=== PATIENT | male | born 1975 | race Caucasian/White ===

== ENCOUNTER 2021-07-21 08:48 | Outpatient (REF) | payer OTHER, SELFPAY ==
--- NOTE | ~2021-07-21 | XR_ITS ---
EXAMINATION: XR SINUSES CLINICAL INFORMATION: Chronic maxillary sinusitis. COMPARISON: None TECHNIQUE: 3 views of the sinuses were obtained. FINDINGS: There is a small polyp or retention cyst in the left maxillary sinus. Mild haziness seen in the right maxillary sinus. The rest the paranasal sinuses are clear. The mastoid sinuses are well aerated as well. No gross maxillofacial bony abnormality seen. XR/XR sinus min 3V IMPRESSION: Small polyp or retention cyst left maxillary sinus. Mild chronic inflammatory changes right maxillary sinus.
[2021-07-21 09:48] LABS: Estimated Average Glucose 103 mg/dL; Hemoglobin A1c % 5.2 %
[2021-07-21 10:09] LABS: Alanine Aminotransferase 84 U/L (0-40); Albumin Level 4.3 g/dL (3.5-5.0); Alkaline Phosphatase 60 U/L (39-117); Anion Gap 12 (12-20); Aspartate Amino Transferase 55 U/L (5-37); Bilirubin Total 0.6 mg/dL (0.0-1.0); Blood Urea Nitrogen 19 mg/dL (9-16); Calcium 9.7 mg/dL (8.4-10.2); Carbon Dioxide 28 mmol/L (22-29); Chloride 105 mmol/L (96-108); Cholesterol 153 mg/dL; Estimated Glomerular Filt Rate > 60; Glucose Fasting 84 mg/dL (60-99); HDL Cholesterol 54 mg/dL; LDL Cholesterol Calculated 86 mg/dl; Potassium 4.6 mmol/L (3.3-5.1); Sodium 140 mmol/L (135-145); Total Protein 7.8 g/dL (6.5-8.0); Triglycerides 68 mg/dL
[2021-07-21 10:19] LABS: TSH reflex Free T4 2.22 uIU/mL (0.32-4.0)
== END 2021-07-21 08:49 | disposition home or self-care (01) ==
LOC: HO.LAB 08:48
PROVIDERS: PCP Internal Medicine; Visit Provider Physician Assistant
DX: J32.0 Chronic maxillary sinusitis (principal); Z13.29 Encounter for screening for other suspected endocrine disorder; Z13.220 Encounter for screening for lipoid disorders; Z13.1 Encounter for screening for diabetes mellitus
CPT/HCPCS: 36415; 70220; 80053; 80061; 83036; 84443

== ENCOUNTER 2021-09-07 09:08 | Outpatient (REF) | payer OTHER, SELFPAY ==
--- NOTE | ~2021-09-07 | US_ITS ---
EXAMINATION: US COMPLETE ABDOMEN WITH LIVER ELASTOGRAPHY CLINICAL INFORMATION: Hepatic cirrhosis; hepatitis C; elevated liver function tests. COMPARISON: None. TECHNIQUE: Real-time imaging of the abdominal viscera. Noninvasive ultrasound liver fibrosis assessment is performed using Ben ElastPQ point quantification shear wave elastography (2D-SWE) with a C5-2 MHz transducer. Multiple elastography samples are obtained. FINDINGS: PANCREAS: Limited. The visualized pancreatic head and body are normal in appearance. The remainder of the pancreas is obscured from visualization by the overlying bowel gas. ABDOMINAL AORTA: The proximal, middle, and distal aortic segments are normal in caliber. INFERIOR VENA CAVA: Visualized portions are normal. LIVER: The liver demonstrates normal size, contour and generally increased echogenicity. No focal lesion or intrahepatic biliary duct dilatation. The right lobe measures 15.1 cm in length. The left lobe measures 8.7 cm in length. Portal flow is towards the liver (hepatopetal). The portal vein is prominent, a caliber of 1.3 cm. Shear wave liver elastography median stiffness is 2.02 m/s (reference: normal median stiffness is 1.3 m/s or less). IQR/median stiffness to assess sampling precision is 0.13 (reference: good quality data set is IQR/median stiffness of 0.15 or less). GALLBLADDER: Normal. The gallbladder is physiologically distended without evidence of stones, sludge, polyps, wall thickening or pericholecystic fluid. COMMON BILE DUCT: Normal in caliber measuring 0.3 cm in diameter. RIGHT KIDNEY: Normal. No hydronephrosis. No renal calculi or focal parenchymal lesions. The kidney measures 10.3 cm in maximum dimension. LEFT KIDNEY: Normal. No hydronephrosis. No renal calculi or focal parenchymal lesions. The kidney measures 9.4 cm in maximum dimension. SPLEEN: Normal. The spleen measures 12.6 cm in maximum dimension. FREE FLUID: None. US/US abdomen comp w elastography IMPRESSION: 1. There is generalized increase in hepatic echotexture, consistent with fatty infiltration or hepatocellular disease. Please correlate clinically. No focal hepatic mass or intrahepatic biliary dilatation is seen. 2. Liver elastography: Measurements are suggestive of compensated advanced chronic liver disease but need further test for confirmation. REFERENCE: Society of Radiologists in Ultrasound Liver Stiffness Thresholds (2020): LIVER STIFFNESS THRESHOLDS: *Liver Stiffness equal or less than 1.3 m/s: High probability of being normal. *Liver Stiffness less than 1.7 m/s: In the absence of other known clinical signs, rules out compensated advanced chronic liver disease. *Liver Stiffness 1.7-2.1 m/s: Suggestive of compensated advanced chronic liver disease but need further test for confirmation. *Liver Stiffness over 2.1 m/s: Rules in compensated advanced chronic liver disease. *Liver Stiffness over 2.4 m/s: Suggestive of clinically significant portal hypertension. QUALITY OF DATA SET: *IQR/Median value equal or less than 0.15 implies a quality data set. *IQR/Median value over 0.15 implies a poor quality data set. SIGNIFICANT CHANGE FROM PRIOR EXAM: Significant change if liver stiffness measurement is 10% or greater from prior exam. OTHER CONSIDERATIONS: The stage of liver fibrosis may be overestimated in the setting of acute hepatitis, liver inflammation, elevated liver function tests, hepatic vascular congestion, obstructive cholestasis, non-fasting state, and infiltrative diseases such as amyloidosis and lymphoma. In some patients with NAFLD, the liver stiffness thresholds for compensated advanced chronic liver disease may be lower. In causes other than viral hepatitis and NAFLD, liver stiffness thresholds are not well established.
== END 2021-09-07 09:09 | disposition home or self-care (01) ==
LOC: HO.US 09:08
PROVIDERS: Visit Provider Physician Assistant
DX: K74.69 Other cirrhosis of liver (principal)
CPT/HCPCS: 76705; 76981

== ENCOUNTER 2021-10-17 08:30 | Emergency (ER) | payer OTHER, SELFPAY ==
--- NOTE | ~2021-10-17 | CT_ITS ---
EXAMINATION: CT CHEST, ABDOMEN AND PELVIS WITHOUT CONTRAST CLINICAL INFORMATION: Fall on left side. Left rib and left upper quadrant pain. COMPARISON: Abdominal ultrasound dated 09/07/2021. TECHNIQUE: Contiguous axial thin section helical images of the chest, abdomen and pelvis were performed without IV contrast. The data set was reformatted in the coronal and sagittal planes and reviewed on an independent workstation. This CT examination was performed using dose optimization techniques as appropriate, variously including the following: *Automated exposure control *Adjustment of mA and/or kV according to patient size (this includes techniques or standardized protocols for targeted exams where dose is matched to indication/reason for exam; i.e. extremities or head) *Use of iterative reconstruction technique DLP: 994 mGy-cm FINDINGS: LUNGS: Right upper lobe 0.3 cm calcified granuloma (axial image [id number]). Anterior right middle lobe 0.2 cm subpleural calcified granuloma. No soft tissue pulmonary nodule. No mass or confluent airspace consolidation. The central airways are patent. PLEURA: No pleural effusion or pneumothorax. No pleural mass or thickening. MEDIASTINUM: No cardiomegaly. No significant pericardial effusion. No thoracic aortic dilatation. No significant mediastinal or hilar lymphadenopathy. CHEST WALL/AXILLA: No lymphadenopathy. THYROID: Unremarkable. LIVER, GALLBLADDER, AND BILIARY TREE: Normal size, shape, and attenuation. No focal hepatic lesion. No intra or extrahepatic biliary ductal dilatation. The gallbladder is unremarkable with no evidence of radiopaque gallstones, gallbladder wall thickening, or obvious pericholecystic inflammatory changes. PANCREAS: Partially fatty replaced. SPLEEN: Unremarkable. ADRENAL GLANDS: Unremarkable. KIDNEYS AND URETERS: Normal size, shape, and attenuation. No hydronephrosis, hydroureter, or calculi. No perinephric stranding. BLADDER: Unremarkable. GASTROINTESTINAL TRACT: No bowel wall thickening or inflammatory change. No small or large bowel obstruction. The appendix is unremarkable. PERITONEAL CAVITY: No intra-abdominal free air, free fluid, mass, or organized fluid collection. ABDOMINAL WALL: No significant abdominal wall hernia. LYMPH NODES: No significant lymphadenopathy. VASCULAR: No abdominal aortic dilatation. The IVC is unremarkable. PELVIC VISCERA: The prostate and seminal vesicles are unremarkable. OSSEOUS STRUCTURES: Nondisplaced lateral left 7th rib fracture. CT/CT abdomen pelvis wo con IMPRESSION: 1. Nondisplaced lateral left 7th rib fracture. 2. No pneumothorax or pleural effusion. No airspace consolidation. 3. No intra-abdominal mass, lymphadenopathy, ascites, or retroperitoneal hematoma. 4. No evidence of acute visceral injury.
--- NOTE | ~2021-10-17 | XR_ITS ---
EXAMINATION: XR RIBS, LEFT CLINICAL INFORMATION: Rib pain. Fall 1 week ago. COMPARISON: None TECHNIQUE: PA view of the chest and 3 views of the left ribs. FINDINGS: No airspace consolidation. No pleural effusion or pneumothorax. Unremarkable cardiomediastinal silhouette. Nondisplaced fracture through the posterolateral aspect of the left 7th rib adjacent to the overlying skin marker. No lytic or blastic osseous lesion. No abnormal soft tissue calcification. XR/XR ribs LT min 3V w CXR1V IMPRESSION: Nondisplaced left 7th rib fracture.
[2021-10-17 08:40] VITALS: BP 145/83; PULSE 70; RESP 18; TEMP 36.4; O2SAT 96; BMI 25.7
--- NOTE | 2021-10-17 09:43 | ED_ITS ---
HPI - General Adult General Chief complaint: General Medical Stated complaint: fall/rib pain/pain while breathing Time Seen by Provider: 10/17/21 09:09 Source: patient Mode of arrival: ambulatory History of Present Illness HPI narrative: 46-year-old male with a past medical history of GERD, headaches, chronic sinusitis, presenting to the ED complaining of left-sided rib pain since mechanical trip and fall last week. Reports tripped on 1 stair falling on left side, denies head trauma or LOC. Reports pain with palpation, movement and breathing. Denies nausea, vomiting, abdominal pain, fever Onset (ago): week(s) Related Data Home Medications Medication Instructions Recorded Confirmed glecaprevir 100 mg-pibrentasvir 40 3 tab PO DAILY 06/30/21 08/03/21 mg tablet (Mavyret) methadone 10 mg/mL intravenous 10 mg IM Q4H PRN 06/30/21 08/03/21 syringe Previous Rx's Medication Instructions Recorded fluticasone propionate 50 2 spray intranasal DAILY #16 grams 06/30/21 mcg/actuation nasal spray,suspension (Flonase Allergy Relief) cetirizine 10 mg tablet (Zyrtec) 10 mg PO DAILY PRN allergy 08/03/21 symptoms 90 days #90 tabs famotidine 20 mg tablet (Pepcid) 20 mg PO DAILY 90 days #90 tabs 08/03/21 ibuprofen 800 mg tablet 800 mg PO Q8H PRN pain 15 days #45 08/03/21 tabs nicotine (polacrilex) 2 mg gum 2 mg buccal Q2H 30 days #110 ea 08/03/21 hydrocodone 5 mg-acetaminophen 325 1 tab PO Q8H PRN pain, severe 3 10/17/21 mg tablet days #6 tabs lidocaine 5 % topical patch 1 patch topical DAILY PRN pain #30 10/17/21 (Lidoderm) ea naproxen 500 mg tablet 500 mg PO BID PRN pain 10 days #20 10/17/21 tabs Allergies Allergy/AdvReac Type Severity Reaction Status Date / Time No Known Drug Allergies Allergy Unknown Unknown Verified 08/03/21 10:01 Review of Systems Review of Systems: Constitutional: No Fever, No Chills ENT/Mouth: No Ear Pain, No Nasal Congestion, No sore throat, No Rhinorrhea, No Swallowing Difficulty Cardiovascular: + Chest Wall Pain, No SOB Respiratory: No Cough, No Sputum Gastrointestinal: No Nausea, No Vomiting, No Diarrhea, No Constipation, No Abdominal pain Genitourinary: No Dysuria, No Urinary Frequency, No Hematuria, No Flank Pain Musculoskeletal: No joint pain, No Myalgias, No Joint Swelling Skin: No Skin Lesions, No rash Neuro: No Weakness, No Numbness, No Paresthesias, no head trauma, no LOC Yes all other systems are reviewed and are negative [facility] Past Medical History Attestation statement: The following information was validated with the patient. Medical History Chronic infection of sinus GERD (gastroesophageal reflux disease) Headaches, cluster Family History Family History Father Kidney failure Prostate cancer Mother DMII (diabetes mellitus, type 2) FH: HTN (hypertension) Family history of pulmonary embolism Social History Social History Housing: House Alcohol intake: never Patient Tobacco Use Status: Current everyday Tobacco user Tobacco use type: Cigarette Cigarettes Per Day: 6 e-Cigarette/Vaping Use: Never Used Substance Use Type: Heroin Advance Directives: No Advance Directives Information Provided: No Current occupational status: employed Current occupation: [employer] Cognitive needs: No Hearing needs: No Vision needs: No Physical Exam ED Vital Signs: Vital Signs - 24 hr 10/17/21 08:40 Temperature 97.6 F Pulse Rate 70 Respiratory Rate 18 Blood Pressure 145/83 H Pulse Oximetry 96 Oxygen Delivery Method Nasal Cannula BMI result Body Mass Index 25.7 Const General: cooperative, healthy appearing and no acute distress Orientation/consciousness: patient oriented x3 Limitations: no limitations HENMT Head: Yes normal to inspection and Yes atraumatic Ears: hearing grossly normal bilaterally General nose exam: Normal external nose present Face and sinus: Yes normal facial exam Eyes General: appearance normal, both eyes and all related structures EOM: EOMs intact bilaterally Neck Neck: Yes normal visual inspection and Yes no meningeal signs Chest Other: + left-sided posterior lateral rib tenderness, reproducing subjective complaint, no erythema/ecchymosis or crepitus. Chest palpation & inspection: normal inspection of the chest and no crepitus Resp Effort & Inspection: normal respiratory effort and no respiratory distress Auscultation: clear to auscultation bilaterally, no crackles and no wheezes Cardio Rate: regular rate Heart sounds: S1 normal heart sound present and S2 normal heart sound present GI Inspection: Yes normal to inspection Palpation (GI): Soft to palpation, Tenderness to palpation present (GI) in the epigastrum and in the LUQ; with no rebound tenderness, no guarding and not rigid Back/Spine/Pelvis Other: No midline thoracic/lumbar spinous tenderness/step-off or deformity Skin Rashes: no rashes Wounds: no wounds Neuro General: patient oriented x3, tone normal and no meningeal signs Gait exam (Neuro): Normal gait present Extrem General: Yes normal to inspection Course Course Course Narrative: XR ribs LT min 3V w CXR1V IMPRESSION: Nondisplaced left 7th rib fracture. 1108--CT chest wo con/CT abdomen pelvis wo con IMPRESSION: 1. Nondisplaced lateral left 7th rib fracture. ? 2. No pneumothorax or pleural effusion. No airspace consolidation. ? 3. No intra-abdominal mass, lymphadenopathy, ascites, or retroperitoneal hematoma. ? 4. No evidence of acute visceral injury. > results discussed with patient including worrisome signs and symptoms and strict return precautions. Patient was supplied with incentive spirometer in the emergency department. Medical Decision Making MDM Narrative Medical decision making narrative: 46-year-old male with a past medical history of GERD, headaches, chronic sinusitis, presenting to the ED complaining of left-sided rib pain since mechanical trip and fall last week. On exam vital signs stable, NAD, nontoxic appearing, physical exam as above with noted left-sided rib tenderness in left upper quadrant tenderness. No crepitus or evidence of flail chest. Concern for rib fracture vs contusion vs intra-abdominal/splenic injury/hematoma Plan: X-ray ordered in triage, chest CT, CT abdomen/pelvis Lab Data Lab results reviewed: Yes I reviewed the patient's lab results. Discharge Plan Discharge Clinical Impression: Left rib fracture Patient Disposition: Home, Self-Care Instructions: Rib Fracture (ED) Additional Instructions: You have a fracture of your 7th rib which is nondisplaced. No other injuries noted. Naproxen as anti-inflammatory/pain medication, take with food. Arbyrd is opiate pain medication, take only when pain is severe for the next 3 days. Be aware Arbyrd has Tylenol mixed in, do not exceed 4 g of Tylenol in 1 day Use incentive spirometer at home. Please follow-up with her doctor Prescriptions: New hydrocodone-acetaminophen 5-325 mg tablet 1 tab PO Q8H PRN (Reason: pain, severe) 3 Days Qty: 6 0RF Rx Instructions: Partial Fill upon patient request. lidocaine [Lidoderm] 5 % adhesive patch,medicated 1 patch topical DAILY MDD remove after 12 hours PRN (Reason: pain) Qty: 30 0RF Rx Instructions: leave on most painful area for up to 12 hrs naproxen 500 mg tablet 500 mg PO BID PRN (Reason: pain) 10 Days Qty: 20 0RF No Action cetirizine [Zyrtec] 10 mg tablet 10 mg PO DAILY PRN (Reason: allergy symptoms) 90 Days Qty: 90 1RF nicotine (polacrilex) 2 mg gum 2 mg buccal Q2H 30 Days Qty: 110 1RF famotidine [Pepcid] 20 mg tablet 20 mg PO DAILY 90 Days Qty: 90 1RF ibuprofen 800 mg tablet 800 mg PO Q8H PRN (Reason: pain) 15 Days Qty: 45 0RF methadone 10 mg/mL syringe 10 mg IM Q4H PRN Rx Instructions: Pt takes 100 mg q in the morning Mavyret 100-40 mg tablet 3 tab PO DAILY fluticasone propionate [Flonase Allergy Relief] 50 mcg/actuation spray,suspension 2 spray intranasal DAILY Qty: 16 3RF Rx Instructions: administer into each nostril Referrals: Kd Arizmendi PA-C [Primary Care Provider] -
[2021-10-17] MEDS: oxyCODONE HCl Immed Release 5 MG TABLET PO (09:57)
[2021-10-17] MEDS: Ketorolac Tromethamine 30 MG/ML VIAL IM (09:58)
== END 2021-10-17 11:29 | disposition home or self-care (01) ==
PROVIDERS: Emergency Provider Emergency Medicine Emergency Medical Services; PCP Physician Assistant
DX: S22.32XA Fracture of one rib, left side, initial encounter for closed fracture (principal); R07.81 Pleurodynia; M54.6 Pain in thoracic spine; R10.2 Pelvic and perineal pain; R10.12 Left upper quadrant pain; F17.210 Nicotine dependence, cigarettes, uncomplicated; F11.90 Opioid use, unspecified, uncomplicated; W10.9XXA Fall (on) (from) unspecified stairs and steps, initial encounter; Y93.9 Activity, unspecified; Y92.9 Unspecified place or not applicable; Y99.9 Unspecified external cause status; Z71.6 Tobacco abuse counseling; Z79.899 Other long term (current) drug therapy
CPT/HCPCS: 71101; 71250; 74176; 94618; 96372; 99283; 99284; J1885

== ENCOUNTER 2023-07-17 13:09 | Outpatient (AMB) | payer OTHER, SELFPAY ==
[2023-07-17 13:20] VITALS: BP 120/68; PULSE 72; O2SAT 97; BMI 22.7
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
== END 2023-07-17 14:01 | disposition home or self-care (01) ==
PROVIDERS: PCP Physician Assistant; Visit Provider Physician Assistant
DX: K74.69 Other cirrhosis of liver (principal); F17.210 Nicotine dependence, cigarettes, uncomplicated; B18.2 Chronic viral hepatitis C; F11.20 Opioid dependence, uncomplicated; M54.16 Radiculopathy, lumbar region; J34.1 Cyst and mucocele of nose and nasal sinus; I10 Essential (primary) hypertension
CPT/HCPCS: 99214

== ENCOUNTER 2023-07-20 13:38 | Outpatient (AMB) | payer OTHER, SELFPAY ==
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
[2023-07-20 13:45] VITALS: BP 138/86; PULSE 71; O2SAT 98; BMI 22.6
== END 2023-07-20 14:15 | disposition home or self-care (01) ==
PROVIDERS: PCP Physician Assistant; Referring Provider Physician Assistant; Visit Provider Nurse Practitioner Family
DX: M54.16 Radiculopathy, lumbar region (principal); G89.4 Chronic pain syndrome; M53.3 Sacrococcygeal disorders, not elsewhere classified; Z79.891 Long term (current) use of opiate analgesic; M47.817 Spondylosis without myelopathy or radiculopathy, lumbosacral region
CPT/HCPCS: 99203

== ENCOUNTER 2023-07-20 13:38 | Outpatient (REF) | payer OTHER, SELFPAY ==
--- NOTE | ~2023-07-20 | XR_ITS ---
EXAMINATION: XR LUMBAR SPINE, SACROILIAC JOINT CLINICAL INFORMATION: Sacrococcygeal disorders not otherwise specified, radiculopathy lumbar region. TECHNIQUE: 7 views of the lumbar spine. 4 views of the bilateral sacroiliac joints. COMPARISON: None available. FINDINGS: Lumbar Spine: Dextroscoliosis of the lumbar spine. Facet arthritis in the lower lumbar spine. The bones are diffusely demineralized. Advanced multilevel degenerative changes in the lumbar spine with multilevel loss of disc space height at L2-S1 levels. Sacroiliac Joints: Bones are diffusely demineralized. Mild degenerative changes on limited views of the bilateral hips. Rounded calcification in the right hemipelvis is likely vascular. Mild degenerative changes in the bilateral sacroiliac joints. XR/XR sacroiliac joint min 3V IMPRESSION: 1. Advanced multilevel degenerative disc disease in the lumbar spine. 2. Mild degenerative changes in the bilateral sacroiliac joints. 3. The bones are diffusely demineralized. 4. CT scan recommended for additional evaluation if there is concern for fracture or other underlying pathology.
--- NOTE | ~2023-07-20 | XR_ITS ---
EXAMINATION: XR LUMBAR SPINE, SACROILIAC JOINT CLINICAL INFORMATION: Sacrococcygeal disorders not otherwise specified, radiculopathy lumbar region. TECHNIQUE: 7 views of the lumbar spine. 4 views of the bilateral sacroiliac joints. COMPARISON: None available. FINDINGS: Lumbar Spine: Dextroscoliosis of the lumbar spine. Facet arthritis in the lower lumbar spine. The bones are diffusely demineralized. Advanced multilevel degenerative changes in the lumbar spine with multilevel loss of disc space height at L2-S1 levels. Sacroiliac Joints: Bones are diffusely demineralized. Mild degenerative changes on limited views of the bilateral hips. Rounded calcification in the right hemipelvis is likely vascular. Mild degenerative changes in the bilateral sacroiliac joints. XR/XR lumbar spine 6V w bending IMPRESSION: 1. Advanced multilevel degenerative disc disease in the lumbar spine. 2. Mild degenerative changes in the bilateral sacroiliac joints. 3. The bones are diffusely demineralized. 4. CT scan recommended for additional evaluation if there is concern for fracture or other underlying pathology.
== END 2023-07-20 13:39 | disposition home or self-care (01) ==
LOC: HO.XRAY 13:38
PROVIDERS: PCP Physician Assistant; Referring Provider Physician Assistant; Visit Provider Nurse Practitioner Family
DX: M54.16 Radiculopathy, lumbar region (principal); M47.817 Spondylosis without myelopathy or radiculopathy, lumbosacral region; M53.3 Sacrococcygeal disorders, not elsewhere classified
CPT/HCPCS: 72114; 72202; 99202

== ENCOUNTER 2023-08-09 07:05 | Outpatient (REF) | payer OTHER, SELFPAY ==
[2023-08-09 07:56] LABS: Hematocrit 39.7 % (42.0-52.0); Hemoglobin 13.4 g/dl (14.0-18.0); Mean Corpuscular HGB Conc 33.8 g/dl (31.0-36.0); Mean Corpuscular Hemoglobin 30.2 pg (27.0-33.0); Mean Corpuscular Volume 89.4 fL (80.0-98.0); Mean Platelet Volume 9.9 fL (9.4-12.4); Platelet Count 155 X10*3/uL (160-400); Red Blood Count 4.44 X10*6/uL (4.60-5.80); Red Cell Distribution Width 12.7 % (11.0-16.0); White Blood Count 4.2 X10*3/uL (4.8-10.8)
[2023-08-09 08:16] LABS: Alanine Aminotransferase 27 U/L (0-40); Alkaline Phosphatase 62 U/L (39-117); Anion Gap 11 (12-20); Aspartate Amino Transferase 27 U/L (5-37); Bilirubin Total 0.2 mg/dL (0.0-1.0); Blood Urea Nitrogen 21 mg/dL (9-16); Calcium 9.3 mg/dL (8.4-10.2); Carbon Dioxide 27 mmol/L (22-29); Chloride 106 mmol/L (96-108); Estimated Glomerular Filt Rate > 60; Glucose Fasting 82 mg/dL (60-99); Potassium 4.3 mmol/L (3.3-5.1); Sodium 140 mmol/L (135-145)
== END 2023-08-09 07:06 | disposition home or self-care (01) ==
LOC: HO.LAB 07:05
PROVIDERS: PCP Physician Assistant; Visit Provider Physician Assistant
DX: Z13.1 Encounter for screening for diabetes mellitus (principal); K21.9 Gastro-esophageal reflux disease without esophagitis
CPT/HCPCS: 36415; 80053; 85027

== ENCOUNTER 2023-08-23 15:05 | Outpatient (AMB) | payer OTHER, SELFPAY ==
[2023-08-23 15:15] VITALS: BP 126/74; PULSE 94; O2SAT 96; BMI 24.7
--- NOTE | 2023-08-23 15:15 | A.OFFPC_ITS ---
Vital Signs 08/23/23 15:15 Height 6 ft Weight 182 lb 4 oz BMI 24.7 BP 126/74 Blood Pressure Location Lt brachial Position Sitting Pulse 94 Pulse Source Pulse Oximeter Pulse Oximetry (%) 96 Oxygen Delivery Method Room Air Intake Visit Reasons: Gastro Referral Discuss Intake Note: Pt is here for new G.I referral. Window Draper Required: No Accompanied by: Self / Same As Patient Allergies No Known Drug Allergies Allergy (Unknown, Verified 08/23/23 15:24) Unknown Medication List - Last Reconciled 08/23/23 by Kd Arizmendi PA-C amlodipine 5 mg PO DAILY baclofen 20 mg PO BID 15 days cetirizine (Zyrtec) 10 mg PO DAILY PRN 90 days famotidine (Pepcid) 20 mg PO DAILY 90 days gabapentin 400 mg PO TID 90 days ibuprofen 600 mg PO BID PRN lidocaine 5% (Lidoderm) 1 patch topical DAILY PRN MDD remove after 12 hours methadone 10 mg IM Q4H PRN naloxone 4 mg/actuation 1 spray intranasal DAILY naproxen 500 mg PO BID 30 days nicotine 1 patch topical DAILY nicotine (polacrilex) 2 mg buccal Q2H 30 days nicotine (polacrilex) mg PO sertraline 50 mg PO DAILY Tobacco use date assessed: 07/17/23 Dental Screening Dental Screen Date: 07/17/23 HPI Gastro Referral Discuss HPI Details Patient is a 48-year-old male here today for a follow-up visit. Patient has a past medical history significant for hypertension, opiate use disorder, generalized anxiety disorder , chronic lumbosacral pain, history of hepatitis C ? Liver cirrhosis CHRONIC MEDICAL CONDITIONS--> Opiate depedence: goes? to a methadone clinic in [place] , ([facility]) .. Lumbar spine pain: Now followed by pain management and is considering a pain reduction modality. Continues with gabapentin and baclofen with decent relief. Also going to a methadone clinic which offer him some pain relief. .. Liver cirrhosis: Had hep C was treated by a integrated circuits inspector and cleared virus. Most recent liver enzymes much improved. He did have an ultrasound of his liver in 2021 that did show hepatocellular disease. He is still interested in seeing a integrated circuits inspector.. Tobacco use disorder:? He does understand he needs to quit and will be working on that soon.? He does report having nicotine gum at home. Laboratory Tests 07/21/21 08/09/23 09:00 07:38 AST 55 H 27 ALT 84 H 27 PFSH Medical History Methadone use Maxillary fracture Chronic infection of sinus Headaches, cluster GERD (gastroesophageal reflux disease) Family History Father Kidney failure Prostate cancer Mother DMII (diabetes mellitus, type 2) FH: HTN (hypertension) Family history of pulmonary embolism Social History Housing: House Alcohol intake: never Patient Tobacco Use Status: Current everyday Tobacco user Tobacco use type: Cigarette Cigarettes Per Day: 6 e-Cigarette/Vaping Use: Never Used Substance Use Type: Heroin and Opiates Current occupational status: disabled Cognitive needs: No Hearing needs: No Vision needs: No Questionnaire Thrive Questionnaire Date Thrive assessed: 07/17/23 LENORE-7 AMB Questionnaire LENORE-7 Date LENORE - 7 assessed: 07/17/23 Source: Developed by Drs. Braulio Cooper, Linda Canas, Niko Mina and colleagues, with an educational prashant from [employer]. Review of Systems Const Denies headache(s) Eyes Denies loss of vision ENT Denies vertigo, Denies dizziness, Denies headache(s) and Denies sore throat Card Denies chest pain, Denies leg edema and Denies lightheadedness Resp Denies cough, Denies hemoptysis and Denies wheezing GI Denies abdominal pain, Denies melena, Denies constipation, Denies diarrhea and Denies vomiting Denies dysuria, Denies urinary frequency and Denies urinary urgency Musc Denies arthralgias, Denies joint swelling, Denies numbness and Denies tingling Neuro Denies Abnormal speech present, Denies behavioral changes, Denies vertigo, Denies dizziness, Denies headache(s), Denies loss of vision, Denies memory loss, Denies numbness and Denies tingling Psych Denies anxiety, Denies behavioral changes, Denies depression, Denies memory loss and Denies panic attacks J Luis/Lymph Denies easy bleeding and Denies easy bruising Aller/Immun Denies wheezing Physical exam (Primary Care) Vital Signs: Last Vital Signs Pulse 94 08/23/23 15:15 BP 126/74 08/23/23 15:15 Pulse Ox 96 08/23/23 15:15 Oxygen Delivery Method Room Air 08/23/23 15:15 BMI result Body Mass Index 24.7 Tobacco/Smoking Status: Tobacco use Status Tobacco use date assessed 07/17/23 08/23/23 15:16 Patient Tobacco Use Status Current everyday Tobacco 08/23/23 15:16 Tobacco use type Cigarette 08/23/23 15:16 e-Cigarette/Vaping Use Never Used 08/23/23 15:16 Are you ready to quit: Yes Tobacco cessation counseling provided: Yes Items discussed: Nicotine replacement Relapse Prevention: discussed the importance of a supportive environment, discussed negative mood or depression after quitting, weight gain after smoking is common and discussed dietary, exercise and/or lifestyle changes Number of minutes spent counselin CPT code: 25966 - 4-10 Minutes Thrive Assessment: Date of Thrive Assessment Date Thrive assessed 07/17/23 08/23/23 15:16 Const General: healthy appearing, no acute distress, alert and awake Nutritional Appearance: well nourished Orientation/consciousness: oriented to person, oriented to place and oriented to time HENMT Ears: TM's normal bilaterally General nose exam: Normal nasal mucous membranes and turbinates present Eyes Conjunctivae: conjunctivae normal Sclerae: sclerae normal Pupils: Equal, round and reactive pupils present Neck Neck: Yes no lymphadenopathy and Yes no JVD Thyroid: Thyroid normal Carotids: no bruits Resp Effort & Inspection: normal respiratory effort and not tachypneic Auscultation: no crackles, no rales, no rhonchi and no wheezes Cardio Rate: regular rate Rhythm: regular rhythm Heart sounds: no murmurs and normal S1 and S2 GI Palpation (GI): Soft to palpation, nontender, no hepatomegaly and no splenomegaly Auscultation: normal bowel sounds Skin General skin exam: no rashes or lesions noted and dry skin Neuro General: oriented to person, oriented to place and oriented to time Cranial nerves: Yes Equal, round and reactive pupils present Speech: No Abnormal speech present Gait exam (Neuro): Normal gait present Motor exam (neuro): no tremor noted Extrem Right upper extremity: full ROM Left upper extremity: full ROM Right lower extremity: full ROM; no edema Left lower extremity: full ROM; no edema Psych Mental Status: mental status grossly normal Speech and movement: Normal speech and movement present Affect: normal affect Attitude: cooperative Thought process: Normal thought process present Assessment and Plan Assessment & Plan (1) Liver cirrhosis: Code(s): K74.60 - Unspecified cirrhosis of liver Qualifiers: Hepatic cirrhosis type: other cirrhosis Qualified Code(s): K74.69 - Other cirrhosis of liver Plan: Patient with chronic hepatitis C. Has been treated for hepatitis-C and per patient he has cleared virus. Most recent labs continue to show improved liver enzymes. He still does some mild right upper abdominal quadrant pain to palpation. Did get an ultrasound liver in 2021 that showed some hepatocellular disease. Will repeat liver ultrasound and refer to GI (2) Smoker: Code(s): F17.200 - Nicotine dependence, unspecified, uncomplicated Plan: Unfortunately continues to smoke any does understand he needs to quit. He does have nicotine gum and patches available to him. He has found it difficult to quit smoking. (3) Lumbar radiculopathy: Code(s): M54.16 - Radiculopathy, lumbar region Plan: He does report having a long history of lumbar spine pain that has radicular symptoms down right lower extremity. He does report a back injury several years ago requiring ER evaluation. He is now seeing [facility] pain management and is considering a pain reduction modality (4) Opiate dependence: Code(s): F11.20 - Opioid dependence, uncomplicated Qualifiers: Substance use status: uncomplicated Qualified Code(s): F11.20 - Opioid dependence, uncomplicated Plan: Patient followed by a methadone clinic in [place] through [facility]. (5) HTN (hypertension): Code(s): I10 - Essential (primary) hypertension Qualifiers: Hypertension type: primary hypertension Qualified Code(s): I10 - Essential (primary) hypertension Plan: Patient's blood pressure acceptable today in office. Will continue his current dose of amlodipine Goal blood pressures to remain below 140/90 Orders: Orders US abdomen lehman w elastography 08/23/23 K74.69 - Other cirrhosis of liver Referrals Gastroenterology Referral K74.69 - Other cirrhosis of liver Medications: New ipratropium bromide administer into each nostril 2 sprays intranasal BID 30 mL 1RF 30 days J32.0 - Chronic maxillary sinusitis Refilled baclofen 20 mg PO BID 30 tabs 1RF 15 days M54.16 - Radiculopathy, lumbar region Patient Instructions: Goal: Remain blood pressure below 140/90 Barriers: Adherence to healthy eating habits and blood pressure monitoring Coding Level of Care Code Est Pt Level 4 (78028) Diagnoses Other cirrhosis of liver K74.69 Hepatic cirrhosis type: other cirrhosis Smoker F17.200 Lumbar radiculopathy M54.16 Uncomplicated opioid dependence F11.20 Substance use status: uncomplicated Primary hypertension I10 Hypertension type: primary hypertension Additional Codes Vital Signs *Quality* - CPT code: 42447 - 4-10 Minutes ([id number])
== END 2023-08-23 15:37 | disposition home or self-care (01) ==
PROVIDERS: PCP Physician Assistant; Visit Provider Physician Assistant
DX: K74.69 Other cirrhosis of liver (principal); F11.20 Opioid dependence, uncomplicated; F17.210 Nicotine dependence, cigarettes, uncomplicated; M54.16 Radiculopathy, lumbar region; I10 Essential (primary) hypertension; K21.9 Gastro-esophageal reflux disease without esophagitis
CPT/HCPCS: 99214; 99406

== ENCOUNTER 2023-08-25 13:55 | Outpatient (AMB) | payer OTHER, SELFPAY ==
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
[2023-08-25 14:02] VITALS: BP 124/69; PULSE 81; O2SAT 100; BMI 21.9
== END 2023-08-25 14:43 | disposition home or self-care (01) ==
PROVIDERS: PCP Physician Assistant; Visit Provider Nurse Practitioner Family
DX: M54.16 Radiculopathy, lumbar region (principal); M47.817 Spondylosis without myelopathy or radiculopathy, lumbosacral region; M53.3 Sacrococcygeal disorders, not elsewhere classified; M85.80 Other specified disorders of bone density and structure, unspecified site; M51.36 Other intervertebral disc degeneration, lumbar region
CPT/HCPCS: 99214

== ENCOUNTER → 2023-08-25 13:55 | Outpatient (BNVA) | payer OTHER, SELFPAY | PROVIDERS: PCP Physician Assistant; Visit Provider Nurse Practitioner Family | DX: M47.27 Other spondylosis with radiculopathy, lumbosacral region (principal); M53.3 Sacrococcygeal disorders, not elsewhere classified; M85.80 Other specified disorders of bone density and structure, unspecified site; M51.36 Other intervertebral disc degeneration, lumbar region; Z79.899 Other long term (current) drug therapy | CPT/HCPCS: 99212 ==

== ENCOUNTER 2023-09-07 08:45 | Outpatient (REF) | payer OTHER, SELFPAY ==
--- NOTE | ~2023-09-07 | US_ITS ---
EXAMINATION: US ABDOMEN LIMITED WITH LIVER ELASTOGRAPHY CLINICAL INFORMATION: Hepatic cirrhosis. COMPARISON: None available. TECHNIQUE: Real-time imaging of the abdominal viscera. Noninvasive ultrasound liver fibrosis assessment is performed using Ben ElastPQ point quantification shear wave elastography (2D-SWE) with a C5-2 MHz transducer. Multiple elastography samples are obtained. FINDINGS: PANCREAS: Largely obscured by overlapping bowel gas. LIVER: Normal. The liver demonstrates normal size, contour and echogenicity. No focal lesion or intrahepatic biliary duct dilatation. The right lobe measures 15.0 cm in length. The left lobe measures 10.7 cm in length. Portal flow is towards the liver (hepatopetal). Shear wave liver elastography median stiffness is 1.61 m/s (reference: normal median stiffness is 1.3 m/s or less). IQR/median stiffness to assess sampling precision is 0.07 (reference: good quality data set is IQR/median stiffness of 0.15 or less). GALLBLADDER: Normal. The gallbladder is physiologically distended without evidence of stones, sludge, polyps, wall thickening or pericholecystic fluid. COMMON BILE DUCT: Normal in caliber measuring 0.6 cm in diameter. RIGHT KIDNEY: Normal. No hydronephrosis. No renal calculi or focal parenchymal lesions. The kidney measures 10.9 cm in maximum dimension. FREE FLUID: None. US/US abdomen lehman w elastography IMPRESSION: 1. Liver elastography: In the absence of other known clinical signs, measurements rule out compensated advanced chronic liver disease. If there are known clinical signs, further testing may be needed for confirmation. 2. Technically limited ultrasound examination of the pancreas. REFERENCE: Society of Radiologists in Ultrasound Liver Stiffness Thresholds (2020): LIVER STIFFNESS THRESHOLDS: *Liver Stiffness equal or less than 1.3 m/s: High probability of being normal. *Liver Stiffness less than 1.7 m/s: In the absence of other known clinical signs, rules out compensated advanced chronic liver disease. *Liver Stiffness 1.7-2.1 m/s: Suggestive of compensated advanced chronic liver disease but need further test for confirmation. *Liver Stiffness over 2.1 m/s: Rules in compensated advanced chronic liver disease. *Liver Stiffness over 2.4 m/s: Suggestive of clinically significant portal hypertension. QUALITY OF DATA SET: *IQR/Median value equal or less than 0.15 implies a quality data set. *IQR/Median value over 0.15 implies a poor quality data set. SIGNIFICANT CHANGE FROM PRIOR EXAM: Significant change if liver stiffness measurement is 10% or greater from prior exam. OTHER CONSIDERATIONS: The stage of liver fibrosis may be overestimated in the setting of acute hepatitis, liver inflammation, elevated liver function tests, hepatic vascular congestion, obstructive cholestasis, non-fasting state, and infiltrative diseases such as amyloidosis and lymphoma. In some patients with NAFLD, the liver stiffness thresholds for compensated advanced chronic liver disease may be lower. In causes other than viral hepatitis and NAFLD, liver stiffness thresholds are not well established.
== END 2023-09-07 08:46 | disposition home or self-care (01) ==
LOC: HO.US 08:45
PROVIDERS: PCP Physician Assistant; Visit Provider Physician Assistant
DX: K74.69 Other cirrhosis of liver (principal)
CPT/HCPCS: 76705; 76981

== ENCOUNTER 2023-09-13 09:16 | Outpatient (REF) | payer OTHER, SELFPAY ==
--- NOTE | ~2023-09-13 | MM_ITS ---
EXAMINATION: BONE DENSITOMETRY CLINICAL INDICATION: Spondylosis without myelopathy or radiculopathy, lumbosacral region. COMPARISON: This is the patient's baseline examination. TECHNIQUE: Using a [employer] DXA System (software version: 13.1) manufactured by [employer] dual-energy x-ray absorptiometry was performed of the lumbar spine and left hip. The images are of good technical quality. Based on ISCD (International Society for Clinical Densitometry) standards of reporting, Z-scores instead of T-scores are reported in this male patient younger than age 50. Summary results are attached. FINDINGS: AP SPINE L1-L2 (excluding L3 and L4): The data of L1-L4 has been changed to exclude the L3 and L4 vertebral bodies, because degenerative sclerosis at this level may falsely elevate bone mineral density. BMD 0.763 g/cm2, T-score -3.6, Z-score -3.6, Z-score below expected range for age. LEFT FEMUR, NECK: BMD 0.961 g/cm2, T-score -0.8, Z-score -0.4, Z-score within expected range for age. LEFT FEMUR, TOTAL: BMD 0.920 g/cm2, T-score -1.3, Z-score -1.0, Z-score within expected range for age. IDENTIFIED RISK FACTORS: Osteoporosis, tobacco use (current smoker), secondary osteoporosis (chronic liver disease). HISTORY OF FRACTURE: None listed. MEDICATIONS: None listed. MM/XR DEXA axial skeleton IMPRESSION: 1. DIAGNOSIS: Based on the lowest Z-score value of -3.6 in the lumbar spine, the patient's bone density is below the expected range for age. 2. 10-YEAR FRACTURE RISK PREDICTION, FRAX: Not performed in this patient outside the age range of 50-90 years. 3. Treatment Recommendations: NOF guidelines recommend consideration for treatment in postmenopausal women and men age 50 and older presenting with the following: -A hip or vertebral (clinical or morphometric) fracture. -T-score less than or equal to -2.5 at the femoral neck or spine after appropriate evaluation to exclude secondary causes. -Low bone mass at the hip or spine and a 10-year fracture probability by FRAX of greater than or equal to 3% for hip fracture or greater than or equal to 20% for major osteoporotic fracture based on the [place] adapted WHO algorithm. 4. Other Recommendations: All treatment decisions require clinical judgment and consideration of individual patient factors, including patient preferences, comorbidities, previous drug use, risk factors not captured in the FRAX model (e.g. frailty, falls, vitamin D deficiency, increased bone turnover, interval significant decline in bone density) and possible under or overestimation of fracture risk by FRAX. Additional medical evaluation for secondary cause of low bone mineral density may be appropriate. FUTURE SCAN RECOMMENDATION: People with diagnosed cases of osteoporosis or at high risk for fracture should have regular bone mineral density tests. For patients eligible for Medicare, routine testing is allowed once every 2 years. The testing frequency can be increased to one year for patients who have rapidly progressing disease, those who are receiving or discontinuing medical therapy to restore bone mass, or have additional risk factors.
== END 2023-09-13 09:17 | disposition home or self-care (01) ==
LOC: HO.MAMMO 09:16
PROVIDERS: PCP Physician Assistant; Visit Provider Nurse Practitioner Family
DX: Z13.820 Encounter for screening for osteoporosis (principal); M85.80 Other specified disorders of bone density and structure, unspecified site; M54.16 Radiculopathy, lumbar region; M47.817 Spondylosis without myelopathy or radiculopathy, lumbosacral region
CPT/HCPCS: 77080

== ENCOUNTER 2023-12-04 08:05 | Outpatient (AMB) | payer OTHER, SELFPAY ==
[2023-12-04 08:12] VITALS: BP 122/70; PULSE 73; O2SAT 98; BMI 25.5
--- NOTE | 2023-12-04 08:12 | A.OFFPC_ITS ---
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: No Allergies No Known Drug Allergies Allergy (Unknown, Verified 12/04/23 08:19) Unknown Medication List - Last Reconciled 12/04/23 by Kd Arizmendi PA-C amlodipine 5 mg PO DAILY baclofen 20 mg PO BID 15 days cetirizine (Zyrtec) 10 mg PO DAILY PRN 90 days famotidine (Pepcid) 20 mg PO DAILY 90 days gabapentin 600 mg PO TID 90 days ipratropium bromide 2 sprays intranasal BID 30 days lidocaine 5% (Lidoderm) 1 patch topical DAILY PRN MDD remove after 12 hours meloxicam 15 mg PO DAILY methadone 10 mg IM Q4H PRN naloxone 4 mg/actuation 1 spray intranasal DAILY naproxen 500 mg PO BID sertraline 50 mg PO DAILY Tobacco use date assessed: 07/17/23 Dental Screening Dental Screen Date: 07/17/23 Did you have a dental visit in the last 12 months?: Yes Did you have a dental problem in the last 6 months where you did not have access to dental care?: No Was dental information given to patient?: Patient has dentist HPI Annual PE HPI Details Patient is a 48-year-old male here today for a follow-up visit. Patient has a past medical history significant for hypertension, opiate use disorder, generalized anxiety disorder , chronic lumbosacral pain, history of hepatitis C ? Liver cirrhosis CHRONIC MEDICAL CONDITIONS--> Opiate depedence: goes? to a methadone clinic in [facility] , ([facility] continues to be sober from street opiates over the last 3 years. He has recently moved into sober living here in [place] .. Lumbar spine pain: Now followed by pain management and is considering a pain reduction modality. His gabapentin was increased to 600 mg Continues with gabapentin and baclofen with decent relief. Also going to a methadone clinic which offer him some pain relief. He has gotten x-ray was lower lumbar spine that did show low bone density. Does have osteoporosis in his lower lumbar spine. Not a rate candidate for cortisone injections. He is willing to do physical therapy .. Liver cirrhosis: Had hep C was treated by a rail car maintenance mechanic and cleared virus. Most recent liver enzymes much improved. He did have an ultrasound of his liver in 2021 that did show hepatocellular disease. He is still interested in seeing a rail car maintenance mechanic.. Tobacco use disorder:? He does understand he needs to quit and will be working on that soon.? He does report having nicotine gum at home. Colorectal cancer screening: Seeing Gastroenterology, will ask colonoscopy screening Vaccines: Report he is UTD with Tdap. UTD with COVID. Willing to get Tdap today [facility] Medical History Methadone use Maxillary fracture Chronic infection of sinus Headaches, cluster GERD (gastroesophageal reflux disease) Family History Father Kidney failure Prostate cancer Mother DMII (diabetes mellitus, type 2) FH: HTN (hypertension) Family history of pulmonary embolism Social History Housing: House Alcohol intake: never Patient Tobacco Use Status: Current everyday Tobacco user Tobacco use type: Cigarette Cigarettes Per Day: 6 e-Cigarette/Vaping Use: Never Used Substance Use Type: Heroin and Opiates Current occupational status: disabled Cognitive needs: No Hearing needs: No Vision needs: No Questionnaire PHQ-9 Over the last 2 weeks, how often have you been bothered by any of the following problems? 1. Little interest or pleasure in doing things: not at all 2. Feeling down, depressed, or hopeless: not at all 3. Trouble falling or staying asleep, or sleeping too much: not at all 4. Feeling tired or having little energy: not at all 5. Poor appetite or overeating: not at all 6. Feeling bad about yourself - or that you are a failure or have let yourself or your family down: not at all 7. Trouble concentrating on things, such as reading the newspaper or watching television: not at all 8. Moving or speaking so slowly that other people could have noticed. Or the opposite - being so fidgety or restless that you have been moving around a lot more than usual: not at all 9. Thoughts that you would be better off or of hurting yourself in some way: not at all Total score: 0 Depression Screening Interpretation: Negative Depression Screening Done: Yes 59267 - PHQ-9 Billing: Yes Source: Developed by Drs. Braulio Cooper, Linda Canas, Niko Mina and colleagues, with an educational prashant from [employer]. Thrive Questionnaire Date Thrive assessed: 07/17/23 I am a: Patient What is your living situation today?: I have a steady place to live Within the past 12 months, did the food you bought not last and you didn't have the money to get more?: Never true Within the past 12 months, did you worry whether your food would run out before you got money to buy more?: Never true Do you have trouble paying for medicines?: No Do you have trouble getting transportation to medical appointments?: No Do you have trouble paying your heating and electricity bill?: No Do you have trouble taking care of your child, family member or friend?: No Do you have trouble with day-to-day activities such as bathing, preparing meals, shopping, managing finances, etc.?: No Are you currently unemployed and looking for a job?: No Are you interested in more education?: No Please select the resources that you would like help with: None Currently or been in a relationship where the following occur: No concerns reported THRIVE Score: 0 AUDIT C Alcohol Use Questionnaire (AUDIT-C) 1. How often do you have a drink containing alcohol?: Never 3. How often do you have six or more drinks on one occasion?: Never Total Score: 0 LENORE-7 AMB Questionnaire LENORE-7 Date LENORE - 7 assessed: 12/04/23 Feeling nervous, anxious, or on edge: 0 = Not at all Not being able to stop or control worryin = Not at all Worrying too much about different things: 0 = Not at all Trouble relaxin = Not at all Being so restless that it is hard to sit still: 0 = Not at all Becoming easily annoyed or irritable: 0 = Not at all Feeling afraid as if something awful might happen: 0 = Not at all Total LENORE-7 score (0-4 normal; 5-9 mild; 10-14 moderate; 15-21 severe): 0 Source: Developed by Linda Genao B.W. Missael, Niko Mina and colleagues, with an educational prashant from [employer]. LENORE-7 Assessment Billing LENORE-7 Assessment Tool: LENORE-7 Assessment 08301 Review of Systems Const Denies body aches, Denies chills, Denies excessive sweating, Denies fatigue, Denies fever(s) and Denies headache(s) Eyes Denies blurry vision ENT Denies dysphagia, Denies vertigo, Denies dizziness, Denies headache(s), Denies hearing loss and Denies tinnitus Card Denies chest pain, Denies chest pain with activity, Denies syncope, Denies irregular heart rhythm and Denies dyspnea Resp Denies chest congestion, Denies cough, Denies hemoptysis, Denies dyspnea and Denies wheezing GI Denies abdominal pain, Denies melena, Denies hematochezia, Denies coffee ground emesis, Denies dysphagia, Denies diarrhea, Denies nausea and Denies vomiting Denies difficulty urinating, Denies dysuria, Denies urinary frequency, Denies urinary hesitancy and Denies urinary urgency Musc Denies arthralgias, Denies limited range of motion, Denies muscle cramps and Denies muscle weakness Skin/Breast Denies rash and Denies skin ulcer Neuro Denies Abnormal speech present, Denies confusion, Denies vertigo, Denies dizziness, Denies syncope, Denies headache(s), Denies memory loss and Denies seizure-like activity Psych Denies anxiety, Denies confusion, Denies depression, Denies memory loss, Denies panic attacks and Denies paranoia Endo Denies excessive sweating, Denies fatigue, Denies flushing, Denies polydipsia and Denies polyuria Aller/Immun Denies wheezing Physical exam (Primary Care) Vital Signs: Last Vital Signs Pulse 73 12/04/23 08:12 BP 122/70 12/04/23 08:12 Pulse Ox 98 12/04/23 08:12 Oxygen Delivery Method Room Air 12/04/23 08:12 BMI result Body Mass Index 25.5 Tobacco/Smoking Status: Tobacco use Status Tobacco use date assessed 07/17/23 12/04/23 08:19 Patient Tobacco Use Status Current everyday Tobacco 12/04/23 08:19 Tobacco use type Cigarette 12/04/23 08:19 e-Cigarette/Vaping Use Never Used 12/04/23 08:19 Are you ready to quit: No Tobacco cessation counseling provided: Yes Items discussed: Nicotine replacement Relapse Prevention: discussed the importance of a supportive environment, discussed negative mood or depression after quitting, weight gain after smoking is common and discussed dietary, exercise and/or lifestyle changes Number of minutes spent counselin CPT code: 84204 - 4-10 Minutes PHQ-9: PHQ-9 Score PHQ-9: Total score 0 12/04/23 08:33 Depression Screening Interpretation: Negative Thrive Assessment: Date of Thrive Assessment Date Thrive assessed 07/17/23 12/04/23 08:19 Currently or been in a relationship where the following occur: No concerns reported Const General: cooperative, comfortable, no acute distress, alert and awake; No confusion Orientation/consciousness: oriented to person, oriented to place, patient oriented x3 and No confusion HENMT Head: Yes normocephalic Ears: external ears normal and TM's normal bilaterally Face and sinus: No sinus tenderness Mouth: Normal oral and palatal mucosa present and tongue normal Teeth and gingiva: dentition normal and gingiva normal Throat: Yes posterior oropharynx normal, Yes tonsils normal and Yes uvula midline Eyes Conjunctivae: conjunctivae normal Sclerae: sclerae normal Pupils: Equal, round and reactive pupils present EOM: EOMs intact bilaterally Direct Ophthalmoscopy: No no photophobia Neck Neck: Yes no lymphadenopathy, No tender and Yes no JVD Thyroid: Thyroid normal Carotids: no bruits Chest Chest palpation & inspection: no tenderness Resp Effort & Inspection: normal respiratory effort, no audible wheezes, not labored and no stridor Auscultation: no crackles, no rales, no rhonchi and no wheezes Cardio Jugular venous distension: no JVD Rate: regular rate, not bradycardic and not tachycardic Rhythm: regular rhythm Bruits: no carotid bruits Peripheral pulses: Peripheral pulses 2+ throughout GI Inspection: Yes normal to inspection, No abdominal wall ecchymosis and No visible herniation Palpation (GI): Soft to palpation, nontender, no guarding, not rigid and No hepatosplenomegaly present Auscultation: normoactive bowel sounds General: Yes no CVA tenderness Back/Spine/Pelvis Back: no CVA tenderness and No back tenderness Cervical Spine: cervical ROM normal Thoracic/Lumbar Spine: thoracic and lumbar spine normal to inspection, straight leg raise negative bilaterally, No thoraco-lumbar ROM limited and No lumbar spinal tenderness Skin Lesions: no lesions Rashes: no rashes Wounds: no wounds Neuro General: oriented to person, oriented to place, patient oriented x3, CN's II-XI intact bilaterally and No confusion Cranial nerves: Yes Equal, round and reactive pupils present and Yes Normal accommodation reflex present Cognition (Neuro): normal cognition Speech: No Abnormal speech present Gait exam (Neuro): Normal gait present Motor exam (neuro): 5/5 motor strength present throughout Extrem Right upper extremity: full ROM; no cyanosis Left upper extremity: full ROM; no cyanosis Right lower extremity: no edema Left lower extremity: no edema Psych Appearance: grossly normal Mental Status: mental status grossly normal Affect: normal affect Attitude: cooperative Thought process: Normal thought process present Immunizations Boostrix Tdap 2.5 Lf unit-8 mcg-5 Lf/0.5 mL intramuscular syringe Performing Provider: Kd Arizmendi PA-C [facility] Administered by: Karla Lin CMA on 12/04/23 08:33 Dose Route Admin Location Dispensed Lot Number Expiration Date NDC Assistant Sales Director 0.5 mL IM Left Deltoid 0.5 mL [id number] 12/15/25 97375-461-80 [employer] VIS Given Date VIS Provided VIS Publication Date 12/04/23 Single Vaccine 20 Eligibility Eligibility Date Funding Source Not [facility] Eligible 12/04/23 Private Assessment and Plan Assessment & Plan (1) Annual physical exam: Code(s): Z00.00 - Encounter for general adult medical examination without abnormal findings (2) Liver cirrhosis: Code(s): K74.60 - Unspecified cirrhosis of liver Qualifiers: Hepatic cirrhosis type: other cirrhosis Qualified Code(s): K74.69 - Other cirrhosis of liver Plan: Patient with chronic hepatitis C. Has been treated for hepatitis-C and per patient he has cleared virus. Most recent labs continue to show improved liver enzymes. He still does some mild right upper abdominal quadrant pain to palpation. Has upcoming appointment with GI. (3) Smoker: Code(s): F17.200 - Nicotine dependence, unspecified, uncomplicated Plan: Unfortunately continues to smoke any does understand he needs to quit. He does have nicotine gum and patches available to him. He has found it difficult to quit smoking. (4) Lumbar radiculopathy: Code(s): M54.16 - Radiculopathy, lumbar region Plan: He does report having a long history of lumbar spine pain that has radicular symptoms down right lower extremity. He continues to have lower lumbar spine pain, has not been able to work and now is battling for disability. X-rays of his lower back showing low bone density and does have osteoporosis. He has stopped working due to his lower back pain Unfortunately MRI has not been approved by insurance. He is willing to do physical therapy. (5) Opiate dependence: Code(s): F11.20 - Opioid dependence, uncomplicated Qualifiers: Substance use status: uncomplicated Qualified Code(s): F11.20 - Opioid dependence, uncomplicated Plan: Patient followed by a methadone clinic in [place] through [facility]. He is looking to transfer to [place] as he is recently moved to [place] sober living. He reports he has been sober from opiates over the last 3 years. (6) HTN (hypertension): Code(s): I10 - Essential (primary) hypertension Qualifiers: Hypertension type: primary hypertension Qualified Code(s): I10 - Essential (primary) hypertension Plan: Patient's blood pressure acceptable today in office. Will continue his current dose of amlodipine Goal blood pressures to remain below 140/90 Orders: Orders Comprehensive Jacob. Panel Fast Today I10 - Essential (primary) hypertension Microalbumin, Random (w Creat) Today I10 - Essential (primary) hypertension Complete Blood Count no Diff Today I10 - Essential (primary) hypertension Prostate Specific Antigen Scr Today I10 - Essential (primary) hypertension, Z12.5 - Encounter for screening for malignant neoplasm of prostate TDaP Immunization Today I10 - Essential (primary) hypertension, Z23 - Encounter for immunization Medications: New naproxen 500 mg PO BID PRN 20 tabs 0RF pain 10 days M47.817 - Spondylosis without myelopathy or radiculopathy, lumbosacral region Patient Instructions: Goal: Blood pressure to remain below 140/90 Barriers: Adherence to physical activity and healthy eating habits, chronic lower lumbar spine. Coding Level of Care Code Est Pt Prev Care 40-64y(47824) Diagnoses Annual physical exam Z00.00 Other cirrhosis of liver K74.69 Hepatic cirrhosis type: other cirrhosis Smoker F17.200 Lumbar radiculopathy M54.16 Uncomplicated opioid dependence F11.20 Substance use status: uncomplicated Primary hypertension I10 Hypertension type: primary hypertension Additional Codes LENORE-7 Assessment Billing - LENORE-7 Assessment Tool: LENORE-7 Assessment 71812 ([id number]) Vital Signs *Quality* - CPT code: 32106 - 4-10 Minutes ([id number])
== END 2023-12-04 08:38 | disposition home or self-care (01) ==
PROVIDERS: PCP Physician Assistant; Visit Provider Physician Assistant
DX: Z23 Encounter for immunization (principal); Z00.00 Encounter for general adult medical examination without abnormal findings; K74.69 Other cirrhosis of liver; F17.210 Nicotine dependence, cigarettes, uncomplicated; M54.16 Radiculopathy, lumbar region; I10 Essential (primary) hypertension
CPT/HCPCS: 90471; 90715; 99396

== ENCOUNTER 2023-12-06 07:11 | Outpatient (AMB) | payer OTHER, SELFPAY ==
--- NOTE | 2023-12-06 08:01 | A.OFFVIS_ITS ---
Vital Signs 12/06/23 08:05 Height 6 ft Weight 189 lb 2.506 oz BMI 25.7 BP 118/78 Blood Pressure Location Lt brachial Position Sitting Pulse 70 Pulse Source Pulse Oximeter Pulse Oximetry (%) 97 Oxygen Delivery Method Room Air Intake Visit Reasons: H Pylori, Hx treated Hep C Intake Note: presents in office today for a scheduled initial assessment. CC; Pt has prev hx of treated Hep C and h. pylori. Pt has hx of liver cirrhosis. PCP recommends repeat US due to recent development of RUQ pain. Prior to this, last US was as of 2021. Pt recent US done as of 09.07.2023. Pt also reports having onset of constipation which seems to be related to the RUQ pain. Benefits Specialist Required: No Allergies No Known Drug Allergies Allergy (Unknown, Verified 12/06/23 08:05) Unknown HPI HPI H Pylori, Hx treated Hep C: Details: 48-year-old male with past medical history of GERD, hep C, GERD is here today for initial consultation. Patient reports that he was treated in 2021 for hep C with Epclusa by the methadone clinic. Patient reports that finish all his treatment. Patient reports that he was also diagnosed with H pylori in the past. Currently patient is taking Pepcid and he continues to have epigastric pain postprandially. Patient reports right upper quadrant pain sometimes not related to food. Patient does admit that he gets constipated. Used MiraLax in the past with help. Patient denies any melena, hematochezia, unintentional weight loss or ribbon like stools. Patient reports occasional dyspepsia without dysphagia or odynophagia. Patient never had colonoscopy in the past. Patient denies any nausea or vomiting. Liver enzymes were normal in August. Ultrasound done and it shows increased echogenicity of the liver. [facility] Medical History (Updated 12/06/23 @ 08:56 by Stephania Hutchinson [employer]-) Hepatitis C Methadone use Maxillary fracture Chronic infection of sinus Headaches, cluster GERD (gastroesophageal reflux disease) Family History Father Kidney failure Prostate cancer Mother DMII (diabetes mellitus, type 2) FH: HTN (hypertension) Family history of pulmonary embolism Social History Housing: House Alcohol intake: never Patient Tobacco Use Status: Current everyday Tobacco user Tobacco use type: Cigarette Cigarettes Per Day: 6 e-Cigarette/Vaping Use: Never Used Substance Use Type: Heroin and Opiates Current occupational status: disabled Cognitive needs: No Hearing needs: No Vision needs: No Review of Systems Const Denies weight gain and Denies weight loss ENT Reports no additional complaints, Denies dysphagia and Denies odynophagia Card Reports no additional complaints Resp Reports no additional complaints GI Reports abdominal pain (RUQ, epigastric), Denies belching, Denies melena, Reports bloating, Reports constipation, Denies dysphagia, Denies excessive flatus, Denies dyspepsia, Reports heartburn, Denies diarrhea, Denies loose stools, Denies nausea, Denies odynophagia and Denies vomiting Reports no additional complaints Musc Reports no additional complaints Neuro Reports no additional complaints Psych Reports no additional complaints Endo Reports no additional complaints Physical Exam Const General: healthy appearing, no acute distress and well developed Nutritional Appearance: well nourished Orientation/consciousness: patient oriented x3 Resp Effort & Inspection: normal respiratory effort, able to speak in complete sentences, no tracheal deviation and symmetric chest movement Auscultation: clear to auscultation bilaterally Cardio Rate: regular rate GI Inspection: Yes normal to inspection and No distended Palpation (GI): Soft to palpation, not firm, nontender and No hepatosplenomegaly present Auscultation: normal bowel sounds General: Yes no CVA tenderness Back/Spine/Pelvis Back: no CVA tenderness Skin General skin exam: elasticity normal, turgor normal and dry skin Neuro General: patient oriented x3 Psych Appearance: grossly normal Mental Status: mental status grossly normal Results Reviewed Results Reviewed: ABDOMINAL ULTRASOUND FINDINGS: PANCREAS: Largely obscured by overlapping bowel gas. LIVER: Normal. The liver demonstrates normal size, contour and echogenicity. No focal lesion or intrahepatic biliary duct dilatation. The right lobe measures 15.0 cm in length. The left lobe measures 10.7 cm in length. Portal flow is towards the liver (hepatopetal). Shear wave liver elastography median stiffness is 1.61 m/s (reference: normal median stiffness is 1.3 m/s or less). IQR/median stiffness to assess sampling precision is 0.07 (reference: good quality data set is IQR/median stiffness of 0.15 or less). GALLBLADDER: Normal. The gallbladder is physiologically distended without evidence of stones, sludge, polyps, wall thickening or pericholecystic fluid. COMMON BILE DUCT: Normal in caliber measuring 0.6 cm in diameter. RIGHT KIDNEY: Normal. No hydronephrosis. No renal calculi or focal parenchymal lesions. The kidney measures 10.9 cm in maximum dimension. FREE FLUID: None. US/US abdomen lehman w elastography IMPRESSION: 1. Liver elastography: In the absence of other known clinical signs, measurements rule out compensated advanced chronic liver disease. If there are known clinical signs, further testing may be needed for confirmation. Assessment & Plan Assessment & Plan (1) GERD (gastroesophageal reflux disease): Code(s): K21.9 - Gastro-esophageal reflux disease without esophagitis Category: Medical Qualifiers: Esophagitis presence: without esophagitis Qualified Code(s): K21.9 - Gastro-esophageal reflux disease without esophagitis (2) History of hepatitis C: Code(s): Z86.19 - Personal history of other infectious and parasitic diseases (3) Postprandial abdominal pain in right upper quadrant: Code(s): R10.11 - Right upper quadrant pain (4) Constipation: Code(s): K59.00 - Constipation, unspecified Qualifiers: Constipation type: slow transit constipation Qualified Code(s): K59.01 - Slow transit constipation Plan History of hep C was on Epclusa in 2021 will recheck viral load. Will check liver fibrosis, rule out autoimmune disorders. Patient will start taking pantoprazole in the morning and can take famotidine at bedtime. Patient will increase fluid intake and activity to promote better bowel motility. Patient can take MiraLax daily to help him move his bowels. He will return in 2 months to discuss going for colonoscopy and possible endoscopy if he will continue to have symptoms. Patient is agreeable to this plan and verbalizes understanding of instructions. He was given the opportunity to ask questions and all questions answered. Thank you for allowing me to participate in his care Orders: Orders Ceruloplasmin Today R79.89 - Other specified abnormal findings of blood chemistry Alpha Fetoprotein Today R79.89 - Other specified abnormal findings of blood chemistry Smooth Muscle Antibody Today R79.89 - Other specified abnormal findings of blood chemistry Lipase Today R10.9 - Unspecified abdominal pain Liver Fibrosis Pnl Today R74.8 - Abnormal levels of other serum enzymes Hepatitis C Viral Load Today Z86.19 - Personal history of other infectious and parasitic diseases Mitochondrial Antibody Today R79.89 - Other specified abnormal findings of blood chemistry Medications: New polyethylene glycol 3350 (Miralax) 17 grams PO DAILY 510 grams 2RF pantoprazole take one tablet half an hour before breakfast 40 mg PO DAILY 30 tabs 2RF K21.9 - Gastro-esophageal reflux disease without esophagitis Changed From famotidine (Pepcid) 20 mg PO DAILY 90 days 90 tabs 1RF K21.9 - Gastro- esophageal reflux disease without esophagitis To famotidine (Pepcid) 20 mg PO BEDTIME 90 days 90 tabs 1RF K21.9 - Gastro- esophageal reflux disease without esophagitis Coding Level of Care Code New Pt Level 3 (84734) Diagnoses Gastroesophageal reflux disease without esophagitis K21.9 Esophagitis presence: without esophagitis History of hepatitis C Z86.19 Postprandial abdominal pain in right upper quadrant R10.11 Slow transit constipation K59.01 Constipation type: slow transit constipation Time Spent (min) 40 Comment 30 minutes spent with patient and additional 10 minutes spent his records
[2023-12-06 08:05] VITALS: BP 118/78; PULSE 70; O2SAT 97; BMI 25.7
== END 2023-12-06 08:43 | disposition home or self-care (01) ==
PROVIDERS: PCP Physician Assistant; Visit Provider Nurse Practitioner Family
DX: K21.9 Gastro-esophageal reflux disease without esophagitis (principal); Z86.19 Personal history of other infectious and parasitic diseases; R10.11 Right upper quadrant pain; K59.01 Slow transit constipation
CPT/HCPCS: 99203

== ENCOUNTER 2023-12-06 07:11 | Outpatient (REF) | payer OTHER, SELFPAY ==
[2023-12-06 09:45] LABS: Hematocrit 39.6 % (42.0-52.0); Hemoglobin 13.4 g/dl (14.0-18.0); Mean Corpuscular HGB Conc 33.8 g/dl (31.0-36.0); Mean Corpuscular Hemoglobin 29.9 pg (27.0-33.0); Mean Corpuscular Volume 88.4 fL (80.0-98.0); Platelet Count 190 X10*3/uL (160-400); Red Blood Count 4.48 X10*6/uL (4.60-5.80); Red Cell Distribution Width 12.3 % (11.0-16.0); White Blood Count 6.3 X10*3/uL (4.8-10.8)
[2023-12-06 10:30] LABS: Potassium 4.3 mmol/L (3.3-5.1); Sodium 140 mmol/L (135-145)
[2023-12-06 10:31] LABS: Alanine Aminotransferase 25 U/L (0-40); Albumin Level 4.5 g/dL (3.5-5.0); Alkaline Phosphatase 71 U/L (39-117); Anion Gap 10 (12-20); Aspartate Amino Transferase 22 U/L (5-37); Bilirubin Total 0.3 mg/dL (0.0-1.0); Blood Urea Nitrogen 19 mg/dL (9-16); Calcium 9.8 mg/dL (8.4-10.2); Carbon Dioxide 28 mmol/L (22-29); Chloride 106 mmol/L (96-108); Estimated Glomerular Filt Rate > 60; Glucose Fasting 95 mg/dL (60-99); Lipase 11 U/L (8-78); Total Protein 7.8 g/dL (6.5-8.0)
[2023-12-06 10:35] LABS: Creatinine Urine 169.08 mg/dL; Microalbum/Creatinine Ratio Ur 8.8 ug/mg cr (<30)
[2023-12-06 10:39] LABS: Prostate Specific Antigen Scr 0.35 ng/mL (<0.05-4.0)
[2023-12-07 09:33] LABS: Ceruloplasmin 30 mg/dL (14-30)
[2023-12-07 12:33] LABS: Alpha Fetoprotein 3.3 ng/mL (<6.1)
[2023-12-07 14:48] LABS: Mitochondrial Antibodies NEGATIVE (NEGATIVE)
[2023-12-08 08:13] LABS: HCV Log PCR <1.18 NOT DETECTED Log IU/mL (NOT DETECTED); HepC Viral Load <15 NOT DETECTED IU/mL (NOT DETECTED)
[2023-12-14 12:28] LABS: Smooth Muscle Antibody <20 U (<20)
[2023-12-15 14:24] LABS: FIB-ALT 20 U/L (9-46); FIB-Alpha-2-Macroglobulin 431 mg/dL (106-279); FIB-Apolipoprotein A1 147 mg/dL (94-176); FIB-GGT 29 U/L (3-95); FIB-Haptoglobin 96 mg/dL (43-212); FIB-Total Bilirubin 0.2 mg/dL (0.2-1.2); Liver Fibrosis Score 0.41; Liver Fibrosis Stage F1-F2; Nec Inflam Act Grade A0; Nec Inflam Act Score 0.09
== END 2023-12-06 07:12 | disposition home or self-care (01) ==
LOC: HO.LAB 07:11
PROVIDERS: PCP Physician Assistant; Visit Provider Nurse Practitioner Family
DX: R79.89 Other specified abnormal findings of blood chemistry (principal); I10 Essential (primary) hypertension; K21.9 Gastro-esophageal reflux disease without esophagitis; R10.11 Right upper quadrant pain; K59.01 Slow transit constipation; R74.8 Abnormal levels of other serum enzymes; Z86.19 Personal history of other infectious and parasitic diseases; Z12.5 Encounter for screening for malignant neoplasm of prostate
CPT/HCPCS: 36415; 80053; 81596; 82043; 82105; 82390; 82570; 83690; 84153; 85027; 86015; 86381; 87522; 99202

== ENCOUNTER 2024-01-16 09:55 | Outpatient (REF) | payer OTHER, SELFPAY ==
--- NOTE | ~2024-01-16 | XR_ITS ---
EXAMINATION: Left foot. CT facial bones with IV contrast. CLINICAL INDICATION: Pain in left foot. Facial swelling and redness. COMPARISON: Sinus exam 07/21/2021. TECHNIQUE:: 3 views left foot. 3 mm thin axial and reformatted 1.5 minutes and sagittal and coronal images of facial bones were obtained following IV 85 mL Omnipaque 350. DLP 366. This CT examination was performed using dose optimization technique as appropriate, variously including the following: Automated exposure control Adjustment of MA and/or KV according to patient size(this includes techniques or standardized protocols for targeted exams where dose is matched to indication/reason for exam; extremities or head. Use of iterative reconstruction techniques.. FINDINGS: Left foot: There is no visible acute fracture, dislocation or subluxation seen. The ankle mortise and subtalar joints are normal. There is a small retrocalcaneal spur. The soft tissues are normal. Facial bones: There is normal aeration of paranasal sinuses with 1 cm small polyp or retention cyst left maxillary sinus. Rest of paranasal sinuses are clear. There is moderate deviation of nasal septum with a small left nasal bony spur. The nasopharyngeal and nasal cavity airway is widely patent. The bony sinus pathak, lamina papyracea and cribriform plate are intact. The bony orbits, optic globe, optic nerves and periorbital soft tissues are normal. Visualized mandible, TM joints, maxillofacial bones are intact. Bilateral parotid, submandibular glands are symmetric and normal. There are dental amalgam related artifacts throughout oral cavity limiting evaluation. However there is no buckle or alveolar space fluid collection abscess. The maxillofacial soft tissues are symmetrical and grossly unremarkable. The oropharynx and pharynx soft tissues and the airway appears normal major vascular structures are symmetrical and normal. Visualized intracranial brain parenchyma is unremarkable with a dominant left vertebral artery. XR/XR foot LT min 3V IMPRESSION: Small polyp or retention cyst left maxillary sinus. Otherwise no major abnormality seen in the neck. Electronically signed by: Bassem Morfin MD 02/04/2024 10:09 AM EDT
== END 2024-01-16 09:56 | disposition home or self-care (01) ==
LOC: HO.XRAY 09:55
PROVIDERS: PCP Physician Assistant; Visit Provider Nurse Practitioner Family
DX: M79.672 Pain in left foot (principal); G89.29 Other chronic pain; M47.817 Spondylosis without myelopathy or radiculopathy, lumbosacral region; M53.3 Sacrococcygeal disorders, not elsewhere classified; M54.16 Radiculopathy, lumbar region
CPT/HCPCS: 73630; 99212

== ENCOUNTER 2024-01-16 09:55 | Outpatient (AMB) | payer OTHER, SELFPAY ==
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
[2024-01-16 10:11] VITALS: BP 136/79; PULSE 67; O2SAT 98; BMI 26.6
== END 2024-01-16 10:22 | disposition home or self-care (01) ==
PROVIDERS: PCP Physician Assistant; Visit Provider Nurse Practitioner Family
DX: M79.672 Pain in left foot (principal); M54.16 Radiculopathy, lumbar region; M47.817 Spondylosis without myelopathy or radiculopathy, lumbosacral region; M53.3 Sacrococcygeal disorders, not elsewhere classified; M51.36 Other intervertebral disc degeneration, lumbar region; Z79.891 Long term (current) use of opiate analgesic
CPT/HCPCS: 99214; G2211

== ENCOUNTER 2024-02-04 01:50 | Emergency (ER) | payer OTHER, SELFPAY ==
--- NOTE | ~2024-02-04 | CT_ITS ---
EXAMINATION: Left foot. CT facial bones with IV contrast. CLINICAL INDICATION: Pain in left foot. Facial swelling and redness. COMPARISON: Sinus exam 07/21/2021. TECHNIQUE:: 3 views left foot. 3 mm thin axial and reformatted 1.5 minutes and sagittal and coronal images of facial bones were obtained following IV 85 mL Omnipaque 350. DLP 366. This CT examination was performed using dose optimization technique as appropriate, variously including the following: Automated exposure control Adjustment of MA and/or KV according to patient size(this includes techniques or standardized protocols for targeted exams where dose is matched to indication/reason for exam; extremities or head. Use of iterative reconstruction techniques.. FINDINGS: Left foot: There is no visible acute fracture, dislocation or subluxation seen. The ankle mortise and subtalar joints are normal. There is a small retrocalcaneal spur. The soft tissues are normal. Facial bones: There is normal aeration of paranasal sinuses with 1 cm small polyp or retention cyst left maxillary sinus. Rest of paranasal sinuses are clear. There is moderate deviation of nasal septum with a small left nasal bony spur. The nasopharyngeal and nasal cavity airway is widely patent. The bony sinus pathak, lamina papyracea and cribriform plate are intact. The bony orbits, optic globe, optic nerves and periorbital soft tissues are normal. Visualized mandible, TM joints, maxillofacial bones are intact. Bilateral parotid, submandibular glands are symmetric and normal. There are dental amalgam related artifacts throughout oral cavity limiting evaluation. However there is no buckle or alveolar space fluid collection abscess. The maxillofacial soft tissues are symmetrical and grossly unremarkable. The oropharynx and pharynx soft tissues and the airway appears normal major vascular structures are symmetrical and normal. Visualized intracranial brain parenchyma is unremarkable with a dominant left vertebral artery. CT/CT facial bones w IV con IMPRESSION: Small polyp or retention cyst left maxillary sinus. Otherwise no major abnormality seen in the neck. Electronically signed by: Bassem Morfin MD 02/04/2024 10:09 AM EDT
[2024-02-04 01:57] VITALS: BP 164/92; PULSE 98; O2SAT 98
[2024-02-04 02:11] VITALS: BP 114/68; PULSE 79; RESP 18; TEMP 36.9; O2SAT 95; BMI 25.1
--- NOTE | 2024-02-04 07:18 | ED_ITS ---
HPI - General Adult General Chief complaint: General Medical Stated complaint: facial swelling Time Seen by Provider: 02/04/24 06:43 Source: patient Mode of arrival: ambulatory Limitations: no limitations History of Present Illness ED Provider: Bobbi Helm APRN HPI narrative: 48-year-old male with a history of IV drug abuse on methadone, hypertension, GERD, chronic back pain, hepatitis-C, chronic sinusitis here with complaints of 24 hrs of right facial swelling/pain and erythema. Of note patient is scheduled for a rhinoplasty February 15 in [place]. He does report history of previous injury, as well as chronic sinusitis. He denies any recent symptoms of sinus pressure, sinus pain, nasal congestion, fevers, chills. He reports that he had a 'pimple on his nose that he picked a few days ago, woke up yesterday with swelling and redness and pain. Related Data Home Medications ?Medication ?Instructions ?Recorded ?Confirmed methadone 10 mg/mL intravenous 10 mg IM Q4H PRN 07/17/23 12/04/23 syringe naloxone 4 mg/actuation nasal spray 1 spray intranasal DAILY 07/17/23 12/04/23 Previous Rx's ?Medication ?Instructions ?Recorded lidocaine 5 % topical patch 1 patch topical DAILY PRN pain #30 11/15/23 (Lidoderm) ea meloxicam 15 mg tablet 15 mg PO DAILY #30 tabs 11/23/23 famotidine 20 mg tablet (Pepcid) 20 mg PO BEDTIME 90 days #90 tabs 12/06/23 pantoprazole 40 mg tablet,delayed 40 mg PO DAILY #30 tabs 12/06/23 release polyethylene glycol 3350 17 17 g PO DAILY #510 grams 12/06/23 gram/dose oral powder (Miralax) ipratropium bromide 21 mcg (0.03 2 spray intranasal BID 30 days #30 01/10/24 %) nasal spray mL amlodipine 5 mg tablet 5 mg PO DAILY #90 tabs 01/11/24 baclofen 20 mg tablet 20 mg PO BID 15 days #30 tabs 01/11/24 cetirizine 10 mg tablet (Zyrtec) 10 mg PO DAILY PRN allergy 01/11/24 symptoms 90 days #90 tabs naproxen 500 mg tablet 500 mg PO BID PRN pain 10 days #20 09/12/24 tabs sertraline 50 mg tablet 50 mg PO DAILY #90 tabs 01/11/24 gabapentin 600 mg tablet 600 mg PO TID pain 90 days #270 01/16/24 tabs clindamycin HCl 150 mg capsule 150 mg PO TID #21 caps 02/04/24 Allergies Allergy/AdvReac Type Severity Reaction Status Date / Time No Known Drug Allergies Allergy Unknown Unknown Verified 02/04/24 02:16 Review of Systems 2 Review of Systems: Yes all other systems are reviewed and are negative Constitutional: Constitutional: Reports no additional constitutional complaints, Denies body ache(s), Denies chills, Denies fever(s), Denies headache(s) and Denies weakness Eyes: Eyes: Reports no additional eye complaints and Denies change in vision ENT: Reports system reviewed and no additional complaints, except as documented, Denies dizziness, Denies headache(s), Denies nasal congestion, Denies nasal discharge and Denies neck pain Cardiovascular: Cardiovascular: Reports no additional cardiovascular complaints, Denies chest pain, Denies leg edema and Denies dyspnea Respiratory: Respiratory: Reports no additional respiratory complaints, Denies cough and Denies dyspnea Gastrointestinal: Gastrointestinal: Reports no additional gastrointestinal complaints, Denies abdominal pain, Denies diarrhea, Denies nausea and Denies vomiting Genitourinary: Genitourinary: Denies urinary incontinence Musculoskeletal: Musculoskeletal: Reports no additional musculoskeletal complaints, Denies back pain, Denies arthralgias, Denies joint swelling, Denies neck pain, Denies numbness and Denies tingling Integumentary/Breasts: Skin/Breast: Reports system reviewed and no additional complaints, except as docu, Reports swelling, Reports erythema and Denies rash Neurologic: Reports system reviewed and no additional complaints, except as documented, Denies Abnormal speech present, Denies dizziness, Denies headache(s), Denies numbness, Denies tingling and Denies weakness [facility] Past Medical History Attestation statement: The following information was validated with the patient. Source: old records reviewed and nursing notes reviewed Medical History Hepatitis C Methadone use Maxillary fracture Chronic infection of sinus Headaches, cluster GERD (gastroesophageal reflux disease) Family History Family History Father Kidney failure Prostate cancer Mother DMII (diabetes mellitus, type 2) FH: HTN (hypertension) Family history of pulmonary embolism Social History Social History Housing: House Alcohol intake: former Patient Tobacco Use Status: Current everyday Tobacco user Tobacco use type: Cigarette Cigarettes Per Day: 6 Smoked in Last 30 Days: Yes e-Cigarette/Vaping Use: Never Used Use of substances other than those prescribed or required for medical reasons: No Substance Use Type: Heroin and Opiates Advance Directives: No Advance Directives Information Provided: No Current occupational status: disabled Cognitive needs: No Hearing needs: No Vision needs: No Physical Exam ED Vital Signs: Vital Signs - 24 hr 02/04/24 02:11 02/04/24 09:53 Temperature 98.5 F 97.9 F Pulse Rate 79 65 Respiratory Rate 18 16 Blood Pressure 114/68 116/76 Pulse Oximetry 95 96 Oxygen Delivery Method Room Air Room Air BMI result Body Mass Index 25.1 Const General: cooperative, healthy appearing, comfortable and no acute distress Orientation/consciousness: patient oriented x3 Limitations: no limitations HENMT Head: Yes normal to inspection Ears: hearing grossly normal bilaterally and TM's normal bilaterally General nose exam: Normal external nose present Nose image: 2 1. +pustule Face and sinus: Yes normal facial exam Face images: 2 1. +swelling, erythema, tenderness which extends over the bridge of the nose Mouth: Normal oral and palatal mucosa present Throat: Yes posterior oropharynx normal, Yes tonsils normal and Yes uvula midline Eyes General: appearance normal, both eyes and all related structures Pupils: Equal, round and reactive pupils present Neck Neck: Yes normal visual inspection Chest Chest palpation & inspection: normal inspection of the chest Resp Effort & Inspection: normal respiratory effort Auscultation: clear to auscultation bilaterally Cardio Rate: regular rate Rhythm: regular rhythm Peripheral pulses: Peripheral pulses 2+ throughout GI Inspection: Yes normal to inspection Palpation (GI): Soft to palpation and nontender Auscultation: normal bowel sounds Back/Spine/Pelvis Thoracic/Lumbar Spine: thoracic and lumbar spine normal to inspection Skin General skin exam: no rashes or lesions noted Neuro General: patient oriented x3, no focal motor deficits and normal sensation to monofilament Cranial nerves: Yes Equal, round and reactive pupils present Cognition (Neuro): normal cognition Speech: No Abnormal speech present Gait exam (Neuro): Normal gait present Motor exam (neuro): 5/5 motor strength present throughout Extrem General: Yes normal to inspection Course Course Course Narrative: CT shows no evidence of deeper space infection or abscess. Patient be discharged home with antibiotic for facial cellulitis. Recommend warm compresses and discussion with his surgeon. Reviewed worrisome signs and symptoms of when to return to the emergency room. Comfortable plan for discharge home Medications Administered Discontinued Medications Generic Name Dose Route Start Last Admin Trade Name Mago PRN Reason Stop Dose Admin Iohexol 85 ml 02/04/24 09:33 02/04/24 09:33 Iohexol 350 Mg/Ml 100 Ml Infus..Btl IV 02/04/24 09:34 85 ml ONCE ONE Administration Medical Decision Making Medical Decision Making [facility] Narrative: 48-year-old male with a history of IV drug abuse on methadone, hypertension, GERD, chronic back pain, hepatitis-C, chronic sinusitis here with complaints of 24 hrs of right facial swelling/pain and erythema.? Of note patient is scheduled for a rhinoplasty February 15 in [place].? He does report history of previous injury, as well as chronic sinusitis.? He denies any recent symptoms of sinus pressure, sinus pain, nasal congestion, fevers, chills.? He reports that he had a 'pimple on his nose that he picked a few days ago, woke up yesterday with swelling and redness and pain. +swelling, erythema, tenderness over right maxillary which extends over the bridge of the nose Will obtain labs, CT with IV contrast Differential Diagnosis Differential Diagnoses: The differential diagnosis associated with the presentation includes Facial cellulitis, deeper space abscess, osteomyelitis Admission/Observation Consideration of admission/observation: Escalation of care including admission/observation considered Lab Data [facility] Lab Attestation statement: I reviewed the patient's lab results. 02/04/24 08:50 02/04/24 08:50 Labs: Lab Results 02/04/24 Range/Units 08:50 WBC 5.4 (4.8-10.8) X10*3/uL RBC 4.47 L (4.60-5.80) X10*6/uL Hgb 13.7 L (14.0-18.0) g/dl Hct 39.1 L (42.0-52.0) % MCV 87.5 (80.0-98.0) fL MCH 30.6 (27.0-33.0) pg MCHC 35.0 (31.0-36.0) g/dl RDW 12.6 (11.0-16.0) % Plt Count 175 (160-400) X10*3/uL MPV 9.9 (9.4-12.4) fL Immature Gran % (Auto) 0.2 (0.0-0.4) % Neut % (Auto) 65.5 (45-73) % Lymph % (Auto) 22.7 (20-40) % Lee % (Auto) 9.4 (2-11) % Eos % (Auto) 1.8 (0-4) % Baso % (Auto) 0.4 (0-2) % Lymph # (Auto) 1.2 (1.2-4.9) X10*3/uL Lee # (Auto) 0.5 (0.1-1.2) X10*3/uL Eos # (Auto) 0.1 (0.0-0.4) X10*3/uL Baso # (Auto) 0.0 (0.0-0.2) X10*3/uL Abs Immat Gran (auto) 0.01 (0.00-0.03) X10*3/uL Absolute Neuts (auto) 3.6 (2.0-8.3) x10*3/uL Absolute Nucleated RBC 0.000 (0.0-0.012) X10*3/uL Nucleated RBC % (auto) 0.0 (0.0-0.2) /100WBC Sodium 140 (135-145) mmol/L Potassium 4.0 (3.3-5.1) mmol/L Chloride 104 (96-108) mmol/L Carbon Dioxide 29 (22-29) mmol/L Anion Gap 11 L (12-20) BUN 18 H (9-16) mg/dL Creatinine 0.79 (0.5-1.4) mg/dL Estim Creat Clear Calc 125.5 Estimated GFR > 60 Random Glucose 108 (60-115) mg/dL Calcium 9.5 (8.4-10.2) mg/dL Independent Interpretation I performed an independent interpretation of an: CT Scan Interpretation: I independently viewed the CT scan agree with the radiology report Radiology Impression Discussion of test interpretation with radiology: I have reviewed the radiologist's reading. Radiologist Impression: [address] [address] [address] Scan Report Signed Patient: Javier Ni MR#: [id number] : 1975 Acct:[id number] Age/Sex: 48 / M ADM Date: 02/04/24 Loc: HO.ED Attending Dr: Ordering Physician: Bobbi Villar NP Date of Service: 02/04/24 Procedure(s): CT facial bones w IV con Accession Number(s): [id number] cc: Kd Arizmendi PA-C; Bobbi Villar NP~ EXAMINATION: Left foot. CT facial bones with IV contrast. CLINICAL INDICATION: Pain in left foot. Facial swelling and redness. COMPARISON: Sinus exam 07/21/2021. TECHNIQUE:: 3 views left foot. 3 mm thin axial and reformatted 1.5 minutes and sagittal and coronal images of facial bones were obtained following IV 85 mL Omnipaque 350. DLP 366. This CT examination was performed using dose optimization technique as appropriate, variously including the following: Automated exposure control Adjustment of MA and/or KV according to patient size(this includes techniques or standardized protocols for targeted exams where dose is matched to indication/reason for exam; extremities or head. Use of iterative reconstruction techniques.. FINDINGS: Left foot: There is no visible acute fracture, dislocation or subluxation seen. The ankle mortise and subtalar joints are normal. There is a small retrocalcaneal spur. The soft tissues are normal. Facial bones: There is normal aeration of paranasal sinuses with 1 cm small polyp or retention cyst left maxillary sinus. Rest of paranasal sinuses are clear. There is moderate deviation of nasal septum with a small left nasal bony spur. The nasopharyngeal and nasal cavity airway is widely patent. The bony sinus pathak, lamina papyracea and cribriform plate are intact. The bony orbits, optic globe, optic nerves and periorbital soft tissues are normal. Visualized mandible, TM joints, maxillofacial bones are intact. Bilateral parotid, submandibular glands are symmetric and normal. There are dental amalgam related artifacts throughout oral cavity limiting evaluation. However there is no buckle or alveolar space fluid collection abscess. The maxillofacial soft tissues are symmetrical and grossly unremarkable. The oropharynx and pharynx soft tissues and the airway appears normal major vascular structures are symmetrical and normal. Visualized intracranial brain parenchyma is unremarkable with a dominant left vertebral artery. CT/CT facial bones w IV con IMPRESSION: Small polyp or retention cyst left maxillary sinus. Otherwise no major abnormality seen in the neck. Discharge Plan Discharge Clinical Impression: Cellulitis of face Patient Disposition: Home, Self-Care Instructions: Cellulitis (ED) Additional Instructions: Warm compresses to the face You need to let your surgeon know what is going on Motrin or Tylenol for pain Return for any worsening symptoms Prescriptions: New clindamycin HCl 150 mg capsule 150 mg PO TID Qty: 21 0RF No Action lidocaine [Lidoderm] 5 % adhesive patch,medicated 1 patch topical DAILY MDD remove after 12 hours PRN (Reason: pain) Qty: 30 3RF Rx Instructions: leave on most painful area for up to 12 hrs meloxicam 15 mg tablet 15 mg PO DAILY Qty: 30 1RF ipratropium bromide 21 mcg (0.03 %) spray,non-aerosol 2 spray intranasal BID 30 Days Qty: 30 1RF Rx Instructions: administer into each nostril amlodipine 5 mg tablet 5 mg PO DAILY Qty: 90 1RF baclofen 20 mg tablet 20 mg PO BID 15 Days Qty: 30 3RF cetirizine [Zyrtec] 10 mg tablet 10 mg PO DAILY PRN (Reason: allergy symptoms) 90 Days Qty: 90 1RF naproxen 500 mg tablet 500 mg PO BID PRN (Reason: pain) 10 Days Qty: 20 0RF sertraline 50 mg tablet 50 mg PO DAILY Qty: 90 1RF methadone 10 mg/mL syringe 10 mg IM Q4H PRN Rx Instructions: Pt takes 120 mg q in the morning naloxone 4 mg/actuation spray,non-aerosol 1 spray intranasal DAILY gabapentin 600 mg tablet 600 mg PO TID 90 Days Qty: 270 1RF famotidine [Pepcid] 20 mg tablet 20 mg PO BEDTIME 90 Days Qty: 90 1RF polyethylene glycol 3350 [Miralax] 17 gram/dose powder 17 g PO DAILY Qty: 510 2RF pantoprazole 40 mg tablet,delayed release (DR/EC) 40 mg PO DAILY Qty: 30 2RF Rx Instructions: take one tablet half an hour before breakfast Referrals: Kd Arizmendi PA-C [Primary Care Provider] - 1 week Print Language: Serbian
[2024-02-04 08:53] LABS: MANUAL DIFF FLAG NO
[2024-02-04 08:55] LABS: Basophils Percent Auto 0.4 % (0-2); Eosinophils Absolute Auto 0.1 X10*3/uL (0.0-0.4); Eosinophils Percent Auto 1.8 % (0-4); Hematocrit 39.1 % (42.0-52.0); Hemoglobin 13.7 g/dl (14.0-18.0); Imm Gran Abs Auto 0.01 X10*3/uL (0.00-0.03); Imm Gran Pct Auto 0.2 % (0.0-0.4); Lymphocytes Absolute Auto 1.2 X10*3/uL (1.2-4.9); Lymphocytes Percent Auto 22.7 % (20-40); Mean Corpuscular Hemoglobin 30.6 pg (27.0-33.0); Mean Corpuscular Volume 87.5 fL (80.0-98.0); Mean Platelet Volume 9.9 fL (9.4-12.4); Monocytes Absolute Auto 0.5 X10*3/uL (0.1-1.2); Monocytes Percent Auto 9.4 % (2-11); Neutrophils Absolute Auto 3.6 x10*3/uL (2.0-8.3); Neutrophils Percent Auto 65.5 % (45-73); Platelet Count 175 X10*3/uL (160-400); Red Blood Count 4.47 X10*6/uL (4.60-5.80); Red Cell Distribution Width 12.6 % (11.0-16.0); White Blood Count 5.4 X10*3/uL (4.8-10.8)
[2024-02-04 09:18] LABS: Anion Gap 11 (12-20); Blood Urea Nitrogen 18 mg/dL (9-16); Calcium 9.5 mg/dL (8.4-10.2); Carbon Dioxide 29 mmol/L (22-29); Chloride 104 mmol/L (96-108); Creatinine Clr Calc Pharmacy 125.5; Estimated Glomerular Filt Rate > 60; Glucose Random 108 mg/dL (60-115); Sodium 140 mmol/L (135-145)
[2024-02-04] MEDS: iohexoL 350 MG/ML 100 ML INFUS..BTL 85 ML IV (09:33)
[2024-02-04 09:53] VITALS: BP 116/76; PULSE 65; RESP 16; TEMP 36.6; O2SAT 96
[2024-02-04 10:40] VITALS: BP 116/76; PULSE 65; RESP 18; TEMP 36.6; O2SAT 98
== END 2024-02-04 10:41 | disposition home or self-care (01) ==
PROVIDERS: Nurse Practitioner Family; Emergency Provider Emergency Medicine; PCP Physician Assistant
DX: L03.211 Cellulitis of face (principal); R51.9 Headache, unspecified; M54.50 Low back pain, unspecified; F17.210 Nicotine dependence, cigarettes, uncomplicated; Z79.899 Other long term (current) drug therapy
CPT/HCPCS: 36415; 70487; 80048; 85025; 99284; Q9967

== ENCOUNTER 2024-02-27 08:46 | Outpatient (AMB) | payer OTHER, SELFPAY ==
--- NOTE | 2024-02-27 08:49 | MHC.OFFVIS ---
Vital Signs 02/27/24 08:50 Height 6 ft Weight 198 lb 6.656 oz BMI 26.9 BP 118/68 Blood Pressure Location Rt brachial Position Sitting Pulse 60 Pulse Source Pulse Oximeter Pulse Oximetry (%) 96 Oxygen Delivery Method Room Air Intake Visit Reasons: 2 month follow up Gerd Intake Note: famotidine 20 mg tablet?(Pepcid)?20 mg PO BEDTIME 90 tabs 1RF 90 days Jasper,Stephania D 12/06/23 08:27 (Transmitted) pantoprazole 40 mg tablet,delayed release?40 mg PO DAILY 30 tabs 2RF Jasper,Stephania D 12/06/23 08:27 (Transmitted) polyethylene glycol 3350 17 gram/dose oral powder?(Miralax)?17 grams PO DAILY 510 grams 2RF Jasper,Stephania D 12/06/23 08:27 (Transmitted) Relevant Flags or Indicators ? Requires Development Director? Mary Matthews presents in office today for a scheduled 2 mos FUV CC; Labs done, see above for recently ordered meds. No diagnostics ordered. Relevant GI Sx as reported per pt? Constipation -- Pt does still report having difficulties but states, with medication, his sx are better controlled. ? Hx of any recent surgeries? None Development Director Required: No Allergies No Known Drug Allergies Allergy (Unknown, Verified 02/27/24 08:50) Unknown HPI HPI 2 month follow up Gerd: Details: LAST VISIT: GERD (gastroesophageal reflux disease) History of hepatitis C Postprandial abdominal pain in right upper quadrant Constipation Plan History of hep C was on Epclusa in 2021 will recheck viral load. Will check liver fibrosis, rule out autoimmune disorders. Patient will start taking pantoprazole in the morning and can take famotidine at bedtime. Patient will increase fluid intake and activity to promote better bowel motility. Patient can take MiraLax daily to help him move his bowels. He will return in 2 months to discuss going for colonoscopy and possible endoscopy if he will continue to have symptoms. Patient is agreeable to this plan and verbalizes understanding of instructions. He was given the opportunity to ask questions and all questions answered. ? Thank you for allowing me to participate in his care Orders Orders Ceruloplasmin Today R79.89 Alpha Fetoprotein Today R79.89 Smooth Muscle Antibody Today R79.89 Lipase Today R10.9 Liver Fibrosis Pnl Today R74.8 Hepatitis C Viral Load Today Z86.19 Mitochondrial Antibody Today R79.89 Medications New polyethylene glycol 3350 (Miralax) 17 grams PO DAILY 510 grams 2RF pantoprazole take one tablet half an hour before breakfast 40 mg PO DAILY 30 tabs 2RF K21.9 Changed Changed From famotidine (Pepcid) 20 mg PO DAILY 90 days 90 tabs 1RF K21.9 Changed To famotidine (Pepcid) 20 mg PO BEDTIME 90 days 90 tabs 1RF K21.9 TODAY'S VISIT Patient is here today for follow-up and to discuss lab results. Patient reports that he has been feeling well since last visit. Takes pantoprazole in the morning before breakfast and famotidine at bedtime. His acid reflux symptoms are suppressed currently. No breakthrough symptoms. Patient reports that he is moving his bowels better now takes MiraLax on as needed basis. Patient denies dyspepsia, dysphagia or odynophagia. Denies melena, hematochezia, unintentional weight loss or ribbon like stools. Blood work came back normal. Fibrosis stage F1 F2. Negative viral load. Patient overall has been feeling well. Still goes to methadone clinic. Reports to have good appetite, denies any nausea or vomiting. Patient denies any GI concerning symptoms today. [facility] Medical History Hepatitis C Methadone use Maxillary fracture Chronic infection of sinus Headaches, cluster GERD (gastroesophageal reflux disease) Family History Father Kidney failure Prostate cancer Mother DMII (diabetes mellitus, type 2) FH: HTN (hypertension) Family history of pulmonary embolism Social History Housing: House Alcohol intake: former Patient Tobacco Use Status: Current everyday Tobacco user Tobacco use type: Cigarette Cigarettes Per Day: 6 e-Cigarette/Vaping Use: Never Used Substance Use Type: Heroin and Opiates Current occupational status: disabled Cognitive needs: No Hearing needs: No Vision needs: No Review of Systems Const Denies weight gain and Denies weight loss ENT Reports no additional complaints, Denies dysphagia and Denies odynophagia Card Reports no additional complaints Resp Reports no additional complaints GI Denies abdominal pain, Denies belching, Denies melena, Denies bloating, Denies change in bowel habits, Reports constipation (Occasional), Denies dysphagia, Denies excessive flatus, Denies dyspepsia, Denies heartburn, Denies diarrhea, Denies loose stools, Denies nausea, Denies odynophagia and Denies vomiting Reports no additional complaints Musc Reports no additional complaints Neuro Reports no additional complaints Psych Reports no additional complaints Endo Reports no additional complaints Physical Exam Vital Signs: Last Vital Signs Pulse 60 02/27/24 08:50 BP 118/68 02/27/24 08:50 Pulse Ox 96 02/27/24 08:50 Oxygen Delivery Method Room Air 02/27/24 08:50 BMI result Body Mass Index 26.9 Const General: healthy appearing, no acute distress and well developed Nutritional Appearance: well nourished Orientation/consciousness: patient oriented x3 Resp Effort & Inspection: normal respiratory effort, able to speak in complete sentences, no tracheal deviation and symmetric chest movement Auscultation: clear to auscultation bilaterally Cardio Rate: regular rate GI Inspection: Yes normal to inspection and No distended Palpation (GI): Soft to palpation, not firm, nontender and No hepatosplenomegaly present Auscultation: normal bowel sounds General: Yes no CVA tenderness Back/Spine/Pelvis Back: no CVA tenderness Skin General skin exam: elasticity normal, turgor normal and dry skin Neuro General: patient oriented x3 Psych Appearance: grossly normal Mental Status: mental status grossly normal Results Reviewed Results Reviewed: Laboratory Tests 12/06/23 08:57 AST 22 ALT 25 Alkaline Phosphatase 71 Liver Fibrosis Stage F1-F2 Ceruloplasmin 30 Lipase 11 Alpha Fetoprotein 3.3 Anti-Mitochondrial Ab NEGATIVE Anti-Smooth Muscle Ab <20 Hep C Viral Load <15 NOT DETECTED Hep C Viral Load Log <1.18 NOT DETECTED Assessment & Plan Assessment & Plan (1) GERD (gastroesophageal reflux disease): Code(s): K21.9 - Gastro-esophageal reflux disease without esophagitis Category: Medical Qualifiers: Esophagitis presence: without esophagitis Qualified Code(s): K21.9 - Gastro-esophageal reflux disease without esophagitis (2) History of hepatitis C: Code(s): Z86.19 - Personal history of other infectious and parasitic diseases (3) Postprandial abdominal pain in right upper quadrant: Code(s): R10.11 - Right upper quadrant pain (4) Constipation: Code(s): K59.00 - Constipation, unspecified Qualifiers: Constipation type: slow transit constipation Qualified Code(s): K59.01 - Slow transit constipation Plan Patient will continue take pantoprazole in the morning and famotidine at bedtime. Currently his symptoms are suppressed. Avoid dietary triggers and late night snacking. Staying upright for minimum 3 hours after meals discussed with patient. Continue MiraLax on as needed basis. Follow-up in 6 months, sooner on as needed basis. He is agreeable to plan of care and verbalizes understanding of instructions. He was given the opportunity to ask questions and all questions answered. Thank you for allowing me to participate in his care Medications: Refilled famotidine (Pepcid) 20 mg PO BEDTIME 90 days 90 tabs 3RF K21.9 - Gastro-esophageal reflux disease without esophagitis pantoprazole take one tablet half an hour before breakfast 40 mg PO DAILY 90 tabs 3RF K21.9 - Gastro-esophageal reflux disease without esophagitis Coding Level of Care Code Est Pt Level 3 (38870) Diagnoses Gastroesophageal reflux disease without esophagitis K21.9 Esophagitis presence: without esophagitis History of hepatitis C Z86.19 Postprandial abdominal pain in right upper quadrant R10.11 Slow transit constipation K59.01 Constipation type: slow transit constipation Time Spent (min) 25 Comment 15 minutes spent with patient and additional 10 minutes spent reviewing his records
[2024-02-27 08:50] VITALS: BP 118/68; PULSE 60; O2SAT 96; BMI 26.9
== END 2024-02-27 09:19 | disposition home or self-care (01) ==
LOC: HO.HGI 08:46
PROVIDERS: PCP Physician Assistant; Visit Provider Nurse Practitioner Family
DX: K21.9 Gastro-esophageal reflux disease without esophagitis (principal); Z86.19 Personal history of other infectious and parasitic diseases; R10.11 Right upper quadrant pain; K59.01 Slow transit constipation
CPT/HCPCS: 99213

== ENCOUNTER → 2024-02-27 08:46 | Outpatient (BNVA) | payer OTHER, SELFPAY | PROVIDERS: PCP Physician Assistant; Visit Provider Nurse Practitioner Family | DX: K21.9 Gastro-esophageal reflux disease without esophagitis (principal); R10.11 Right upper quadrant pain; Z86.19 Personal history of other infectious and parasitic diseases; Z79.899 Other long term (current) drug therapy | CPT/HCPCS: 99212 ==

== ENCOUNTER 2024-03-05 06:16 | Outpatient (REF) | payer OTHER, SELFPAY | END 2024-03-05 06:17 | disposition home or self-care (01) | LOC: CF 06:16 | PROVIDERS: Visit Provider Anesthesiology | DX: M47.817 Spondylosis without myelopathy or radiculopathy, lumbosacral region (principal) | CPT/HCPCS: 64493; 64494; J2003; J2795 ==

== ENCOUNTER 2024-03-05 13:31 | Outpatient (AMB) | payer OTHER, SELFPAY ==
--- NOTE | 2024-03-05 13:32 | A.OFFVIS_ITS ---
Vital Signs 03/05/24 14:02 03/05/24 14:03 Height 6 ft 6 ft Weight 198 lb 198 lb BMI 26.9 26.9 BP 132/90 H 134/83 Blood Pressure Location Lt brachial Lt brachial Position Sitting Sitting Respiration 16 16 Pulse 60 63 Pulse Source Pulse Oximeter Pulse Oximeter Pulse Oximetry (%) 97 97 Oxygen Delivery Method Room Air Room Air Comment pre-op post-op Intake Visit Reasons: BILATERAL DIAGNOSTIC L3, L4, DRL5 MBB Allergies No Known Drug Allergies Allergy (Unknown, Verified 03/05/24 14:03) Unknown [facility] Medical History Hepatitis C Methadone use Maxillary fracture Chronic infection of sinus Headaches, cluster GERD (gastroesophageal reflux disease) Family History Father Kidney failure Prostate cancer Mother DMII (diabetes mellitus, type 2) FH: HTN (hypertension) Family history of pulmonary embolism Social History Housing: House Alcohol intake: former Patient Tobacco Use Status: Current everyday Tobacco user Tobacco use type: Cigarette Cigarettes Per Day: 6 e-Cigarette/Vaping Use: Never Used Substance Use Type: Heroin and Opiates Current occupational status: disabled Cognitive needs: No Hearing needs: No Vision needs: No Physical Exam Vital Signs: Last Vital Signs Pulse 63 03/05/24 14:03 Resp 16 03/05/24 14:03 BP 134/83 03/05/24 14:03 Pulse Ox 97 03/05/24 14:03 Oxygen Delivery Method Room Air 03/05/24 14:03 BMI result Body Mass Index 26.9 Assessment & Plan Assessment & Plan (1) Lumbosacral spondylosis: Code(s): M47.817 - Spondylosis without myelopathy or radiculopathy, lumbosacral region Category: Medical Plan Diagnostic medial branch block L3,L4 dorsal ramus L5 bilateral.? ? ?Informed consent was explained to the patient. All questions were explained and? answered.? The patient was taken inside the operating room where she was positioned prone on the operating table. Time-out was performed delineating correct site, side, the nature of the procedure, patient's allergy, . All operating room staff was participating in OR time-out procedure. ? ? The lower back was prepped with ChloraPrep and draped with sterile towels.? C- arm was brought over the operating field and sq picture of L4-, L5 vertebra and S1 AREA were delineated on the screen.? Point of interest were delineated as confluence of superior articular process of L4 and L5 vertebra bilaterally with corresponding transverse processes as well as confluence of the sacral alae bilaterally with superior articular process of S1.? The projection of the point of interest to the skin were injected with the small amount of local anesthetic lidocaine 2% mixed with ropivacaine 0.5% 1-1 approcimately 1 cc.? After that 22 gauge 3.5 inch spinal needle was driven sequentially to the points of interest in tunnel vision fashion. After needles gently contacted the bone at the point of interests the needle was injected with small amount of the contrast.? The injection of the contrast did not demonstrate any intravascular or intrathecal spread of the contrast.? After that injection of the? ropivacaine 0.5%-1cc was performed at each needle location.??after that the needles were removed and Bandaids were applied. ? Upon completion of the injections? needle was? removed and sterile Band-Aids were applied.? The patient tolerated procedure very well. Orders: Orders FL guidance in treatment room Today M47.817 - Spondylosis without myelopathy or radiculopathy, lumbosacral region Coding Level of Care Code Procedure Only Diagnoses Lumbosacral spondylosis M47.817
[2024-03-05 14:02] VITALS: BP 132/90; PULSE 60; RESP 16; O2SAT 97; BMI 26.9
[2024-03-05 14:03] VITALS: BP 134/83; PULSE 63; RESP 16; O2SAT 97; BMI 26.9
== END 2024-03-05 14:04 | disposition home or self-care (01) ==
LOC: HO.PMCPRC 13:32
PROVIDERS: PCP Physician Assistant; Visit Provider Anesthesiology
DX: M47.817 Spondylosis without myelopathy or radiculopathy, lumbosacral region (principal)
CPT/HCPCS: 64493; 64494

== ENCOUNTER 2024-03-12 13:00 | Outpatient (AMB) | payer OTHER, SELFPAY ==
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
[2024-03-12 13:10] VITALS: BP 157/86; PULSE 69; O2SAT 99; BMI 26.0
== END 2024-03-12 13:39 | disposition home or self-care (01) ==
PROVIDERS: PCP Physician Assistant; Visit Provider Nurse Practitioner Family
DX: M79.672 Pain in left foot (principal); G89.29 Other chronic pain; M47.817 Spondylosis without myelopathy or radiculopathy, lumbosacral region; M53.3 Sacrococcygeal disorders, not elsewhere classified; M51.369 Other intervertebral disc degeneration, lumbar region without mention of lumbar back pain or lower extremity pain; G89.4 Chronic pain syndrome
CPT/HCPCS: 99214; G2211

== ENCOUNTER → 2024-03-12 13:00 | Outpatient (BNVA) | payer OTHER, SELFPAY | PROVIDERS: PCP Physician Assistant; Visit Provider Nurse Practitioner Family | DX: M79.672 Pain in left foot (principal); M47.817 Spondylosis without myelopathy or radiculopathy, lumbosacral region; M53.3 Sacrococcygeal disorders, not elsewhere classified; M51.369 Other intervertebral disc degeneration, lumbar region without mention of lumbar back pain or lower extremity pain; G89.4 Chronic pain syndrome | CPT/HCPCS: 99212 ==

== ENCOUNTER 2024-06-03 15:13 | Outpatient (AMB) | payer OTHER, SELFPAY ==
[2024-06-03 15:34] VITALS: BP 130/80; PULSE 68; TEMP 36.5; O2SAT 94; BMI 25.8
--- NOTE | 2024-06-03 15:34 | A.OFFPC_ITS ---
Vital Signs 06/03/24 15:34 Height 6 ft Weight 190 lb 4 oz BMI 25.8 BP 130/80 Blood Pressure Location Lt brachial Position Sitting Pulse 68 Pulse Source Pulse Oximeter Temp 97.7 F Temp Source Temporal Artery Scan Pulse Oximetry (%) 94 Oxygen Delivery Method Room Air Intake Visit Reasons: Follow Up Intake Note: Pt is here for routine F/U and for EAEDC/DTA form to be completed by PCP and fax to [phone]. Affirmative Action Officer Required: No Accompanied by: Self / Same As Patient Allergies No Known Drug Allergies Allergy (Unknown, Verified 06/03/24 15:47) Unknown Medication List - Last Reconciled 06/03/24 by Kd Arizmendi PA-C amlodipine 5 mg PO DAILY baclofen 20 mg PO BID 15 days cetirizine (Zyrtec) 10 mg PO DAILY PRN 90 days clindamycin HCl 150 mg PO TID famotidine (Pepcid) 20 mg PO BEDTIME 90 days fluticasone propionate 50 mcg/actuation 1 spray intranasal BID 30 days gabapentin 600 mg PO TID 90 days lidocaine 5% (Lidoderm) 1 patch topical DAILY PRN MDD remove after 12 hours meloxicam 15 mg PO DAILY methadone 10 mg IM Q4H PRN naloxone 4 mg/actuation 1 spray intranasal DAILY naproxen 500 mg PO BID PRN 10 days pantoprazole 40 mg PO DAILY polyethylene glycol 3350 (Miralax) 17 grams PO DAILY sertraline 50 mg PO DAILY Tobacco use date assessed: 06/03/24 Dental Screening Dental Screen Date: 06/03/24 Did you have a dental visit in the last 12 months?: Yes Did you have a dental problem in the last 6 months where you did not have access to dental care?: No Was dental information given to patient?: Patient has dentist HPI Follow Up HPI Details Patient is a 48-year-old male here today for a follow-up visit. Patient has a past medical history significant for hypertension, opiate use disorder, generalized anxiety disorder , chronic lumbosacral pain, history of hepatitis C ? Liver cirrhosis Concern--> has been having a chronic problematic heel spur, causing significant discomfort with a referral initially placed for podiatry in the fall, but requiring a new referral as the previous practitioner is no longer available. No recent X-rays were conducted this visit, but a prior one in December did not yield notable findings Opiate depedence: goes? to a methadone clinic in [place] , (N) continues to be sober from street opiates over the last 3 years. He has recently moved into sober living here in [place] .. Lumbar spine pain: Now followed by pain management and is considering a pain reduction modality. His gabapentin was increased to 600 mg Continues with gabapentin and baclofen with decent relief. Also going to a methadone clinic which offer him some pain relief. He has gotten x-ray was lower lumbar spine that did show low bone density. Does have osteoporosis in his lower lumbar spine. The patient underwent a pain management intervention involving a spinal injection, although this procedure has not significantly alleviated his pain. Scheduled to undergo another spine-related procedure in June aimed at nerve management .. Liver cirrhosis: Had hep C was treated by a senior supplier quality engineer and cleared virus. He is followed by [place] [facility].. Most recent liver enzymes much improved. He did have an ultrasound of his liver in 2021 that did show hepatocellular disease. Tobacco use disorder/vaporizer cigarette:? He does understand he needs to quit and will be working on that soon.? He is willing to try nicotine gum send him inflamed. [facility] Medical History Hepatitis C Methadone use Maxillary fracture Chronic infection of sinus Headaches, cluster GERD (gastroesophageal reflux disease) Family History Father Kidney failure Prostate cancer Mother DMII (diabetes mellitus, type 2) FH: HTN (hypertension) Family history of pulmonary embolism Social History Housing: House Alcohol intake: former Patient Tobacco Use Status: Current everyday Tobacco user Tobacco use type: Cigarette Cigarettes Per Day: 6 e-Cigarette/Vaping Use: Never Used Substance Use Type: Heroin and Opiates service: No Current occupational status: disabled Cognitive needs: No Hearing needs: No Vision needs: No Questionnaire PHQ-9 Over the last 2 weeks, how often have you been bothered by any of the following problems? 1. Little interest or pleasure in doing things: not at all 2. Feeling down, depressed, or hopeless: not at all 3. Trouble falling or staying asleep, or sleeping too much: not at all 4. Feeling tired or having little energy: not at all 5. Poor appetite or overeating: not at all 6. Feeling bad about yourself - or that you are a failure or have let yourself or your family down: not at all 7. Trouble concentrating on things, such as reading the newspaper or watching television: not at all 8. Moving or speaking so slowly that other people could have noticed. Or the opposite - being so fidgety or restless that you have been moving around a lot more than usual: not at all 9. Thoughts that you would be better off or of hurting yourself in some way: not at all Total score: 0 Depression Screening Interpretation: Negative Depression Screening Done: Yes 76614 - PHQ-9 Billing: Yes Source: Developed by Drs. Braulio Cooper, Linda Canas, Niko Mina and colleagues, with an educational prashant from [employer]. Thrive Questionnaire Date Thrive assessed: 06/03/24 I am a: Patient What is your living situation today?: I have a steady place to live Within the past 12 months, did the food you bought not last and you didn't have the money to get more?: Never true Within the past 12 months, did you worry whether your food would run out before you got money to buy more?: Never true Do you have trouble paying for medicines?: No Do you have trouble getting transportation to medical appointments?: No Do you have trouble paying your heating and electricity bill?: No Do you have trouble taking care of your child, family member or friend?: No Do you have trouble with day-to-day activities such as bathing, preparing meals, shopping, managing finances, etc.?: No Are you currently unemployed and looking for a job?: No Are you interested in more education?: No Please select the resources that you would like help with: None Currently or been in a relationship where the following occur: No concerns reported THRIVE Score: 0 AUDIT C Alcohol Use Questionnaire (AUDIT-C) 1. How often do you have a drink containing alcohol?: Never 3. How often do you have six or more drinks on one occasion?: Never Total Score: 0 LENORE-7 AMB Questionnaire LENORE-7 Date LENORE - 7 assessed: 06/03/24 Feeling nervous, anxious, or on edge: 0 = Not at all Not being able to stop or control worryin = Not at all Worrying too much about different things: 0 = Not at all Trouble relaxin = Not at all Being so restless that it is hard to sit still: 0 = Not at all Becoming easily annoyed or irritable: 0 = Not at all Feeling afraid as if something awful might happen: 0 = Not at all Total LENORE-7 score (0-4 normal; 5-9 mild; 10-14 moderate; 15-21 severe): 0 Source: Developed by Drs. Braulio Cooper, Linda Canas, Niko Mina and colleagues, with an educational prashant from [employer]. LENORE-7 Assessment Billing LENORE-7 Assessment Tool: LENORE-7 Assessment 89549 Review of Systems Const Denies headache(s) Eyes Denies loss of vision ENT Denies vertigo, Denies dizziness, Denies headache(s) and Denies sore throat Card Denies chest pain, Denies leg edema and Denies lightheadedness Resp Denies cough, Denies hemoptysis and Denies wheezing GI Denies abdominal pain, Denies melena, Denies constipation, Denies diarrhea and Denies vomiting Denies dysuria, Denies urinary frequency and Denies urinary urgency Musc Details: + left heel pain Denies arthralgias, Denies joint swelling, Denies numbness and Denies tingling Neuro Denies Abnormal speech present, Denies behavioral changes, Denies vertigo, Denies dizziness, Denies headache(s), Denies loss of vision, Denies memory loss, Denies numbness and Denies tingling Psych Denies anxiety, Denies behavioral changes, Denies depression, Denies memory loss and Denies panic attacks J Luis/Lymph Denies easy bleeding and Denies easy bruising Aller/Immun Denies wheezing Physical exam (Primary Care) Vital Signs: Last Vital Signs Temp 97.7 F 06/03/24 15:34 Pulse 68 06/03/24 15:34 BP 130/80 06/03/24 15:34 Pulse Ox 94 06/03/24 15:34 Oxygen Delivery Method Room Air 06/03/24 15:34 BMI result Body Mass Index 25.8 Tobacco/Smoking Status: Tobacco use Status Tobacco use date assessed 06/03/24 06/03/24 15:44 Patient Tobacco Use Status Current everyday Tobacco 06/03/24 15:38 Tobacco use type Cigarette 06/03/24 15:38 e-Cigarette/Vaping Use Never Used 06/03/24 15:38 Are you ready to quit: Yes Tobacco cessation counseling provided: Yes Items discussed: Nicotine replacement Relapse Prevention: discussed the importance of a supportive environment, discussed negative mood or depression after quitting, weight gain after smoking is common and discussed dietary, exercise and/or lifestyle changes Number of minutes spent counselin CPT code: 77568 - 4-10 Minutes PHQ-9: PHQ-9 Score PHQ-9: Total score 0 06/03/24 15:44 Depression Screening Interpretation: Negative Thrive Assessment: Date of Thrive Assessment Date Thrive assessed 06/03/24 06/03/24 15:45 Currently or been in a relationship where the following occur: No concerns reported Const General: healthy appearing, no acute distress, alert and awake Nutritional Appearance: well nourished Orientation/consciousness: oriented to person, oriented to place and oriented to time HENMT Ears: TM's normal bilaterally General nose exam: Normal nasal mucous membranes and turbinates present Eyes Conjunctivae: conjunctivae normal Sclerae: sclerae normal Pupils: Equal, round and reactive pupils present Neck Neck: Yes no lymphadenopathy and Yes no JVD Thyroid: Thyroid normal Carotids: no bruits Resp Effort & Inspection: normal respiratory effort and not tachypneic Auscultation: no crackles, no rales, no rhonchi and no wheezes Cardio Rate: regular rate Rhythm: regular rhythm Heart sounds: no murmurs and normal S1 and S2 GI Palpation (GI): Soft to palpation, nontender, no hepatomegaly and no splenomegaly Auscultation: normal bowel sounds Skin General skin exam: no rashes or lesions noted and dry skin Neuro General: oriented to person, oriented to place and oriented to time Cranial nerves: Yes Equal, round and reactive pupils present Speech: No Abnormal speech present Gait exam (Neuro): Normal gait present Motor exam (neuro): no tremor noted Extrem Right upper extremity: full ROM Left upper extremity: full ROM Right lower extremity: full ROM; no edema Left lower extremity: full ROM; no edema Psych Mental Status: mental status grossly normal Speech and movement: Normal speech and movement present Affect: normal affect Attitude: cooperative Thought process: Normal thought process present Coding Level of Care Code Est Pt Level 4 (76153) Diagnoses Uncomplicated opioid dependence F11.20 Substance use status: uncomplicated LENORE (generalized anxiety disorder) F41.1 Degeneration of intervertebral disc of lumbar region with discogenic back pain and lower extremity pain M51.362 Disc-related pain type: discogenic back pain and lower extremity pain Bone spur of posterior portion of left calcaneus M77.32 Laterality: left Other tobacco product nicotine dependence, uncomplicated F17.290 Nicotine product type: other Substance use status: uncomplicated Primary hypertension I10 Hypertension type: primary hypertension Additional Codes LENORE-7 Assessment Billing - LENORE-7 Assessment Tool: LENORE-7 Assessment 86068 ([id number]) PHQ-9 - 58670 - PHQ-9 Billing: Yes ([id number]) Vital Signs *Quality* - CPT code: 34083 - 4-10 Minutes ([id number]) Assessment & Plan Assessment & Plan (1) Opiate dependence: Code(s): F11.20 - Opioid dependence, uncomplicated Category: Medical Qualifiers: Substance use status: uncomplicated Qualified Code(s): F11.20 - Opioid dependence, uncomplicated Plan: Continues to go to a methadone clinic. He has been staying away from any illicit street opiates. (2) LENORE (generalized anxiety disorder): Code(s): F41.1 - Generalized anxiety disorder Category: Medical Plan: Patient's LENORE-7 score 0. He does have a history of anxiety. He continues on sertraline 50 mg with good relief. He does smoke vaporized cigarettes due to his stress and anxiety as well. (3) Lumbar degenerative disc disease: Code(s): M51.36 - Other intervertebral disc degeneration, lumbar region Category: Medical Qualifiers: Disc-related pain type: discogenic back pain and lower extremity pain Qualified Code(s): M51.362 - Other intervertebral disc degeneration, lumbar region with discogenic back pain and lower extremity pain Plan: As per HPI Patient has followed by pain management clinic here in [place] in his received injections which only offered minimal relief. He is due for new injections in June of 2024 in hopes to gain some more relief. (4) Retrocalcaneal bone spur: Code(s): M77.30 - Calcaneal spur, unspecified foot Category: Medical Qualifiers: Laterality: left Qualified Code(s): M77.32 - Calcaneal spur, left foot Plan: Has chronic foot heel pain over the last several years. He has interested in getting podiatry evaluation and treatment (5) Nicotine dependence: Code(s): F17.200 - Nicotine dependence, unspecified, uncomplicated Category: Medical Qualifiers: Nicotine product type: other Substance use status: uncomplicated Qualified Code(s): F17.290 - Nicotine dependence, other tobacco product, uncomplicated Plan: We continues to use vaporizer cigarettes and does understand he needs to quit. He is willing to try nicotine gum to help him quit smoking. He reports he is due for surgery on his nasal passages and needs to quit smoking 4 days prior (6) HTN (hypertension): Code(s): I10 - Essential (primary) hypertension Category: Medical Qualifiers: Hypertension type: primary hypertension Qualified Code(s): I10 - Essential (primary) hypertension Plan: Patient's blood pressure acceptable today in office. Will continues current dose of amlodipine. Goal blood pressure to remain below 140/90 Orders: Orders Complete Blood Count no Diff Today I10 - Essential (primary) hypertension Comprehensive Forney. Panel Fast Today I10 - Essential (primary) hypertension Microalbumin, Random (w Creat) Today I10 - Essential (primary) hypertension Prostate Specific Antigen Scr Today I10 - Essential (primary) hypertension, Z12.5 - Encounter for screening for malignant neoplasm of prostate Referrals Podiatry Referral M77.30 - Calcaneal spur, unspecified foot, M79.672 - Pain in left foot Medications: New nicotine (polacrilex) 2 mg buccal Q2H 15 days PRN 110 ea 0RF nicotine cravings F17.200 - Nicotine dependence, unspecified, uncomplicated Changed From naproxen 500 mg PO BID 10 days PRN 20 tabs 0RF pain M47.817 - Spondylosis without myelopathy or radiculopathy, lumbosacral region To naproxen 500 mg PO BID 15 days 30 tabs 1RF pain M47.817 - Spondylosis without myelopathy or radiculopathy, lumbosacral region Discontinued meloxicam Discontinued Reason: Doctor's Order 15 mg PO DAILY 30 tabs 1RF M47.817 - Spondylosis without myelopathy or radiculopathy, lumbosacral region, M53.3 - Sacrococcygeal disorders, not elsewhere classified, M54.16 - Radiculopathy, lumbar region Patient Instructions: Goal: Blood pressure to remain below 140/90 Barriers: Adherence to physical activity and healthy eating habits
== END 2024-06-03 16:00 | disposition home or self-care (01) ==
PROVIDERS: PCP Physician Assistant; Visit Provider Physician Assistant
DX: F11.20 Opioid dependence, uncomplicated (principal); F41.1 Generalized anxiety disorder; M51.362 Other intervertebral disc degeneration, lumbar region with discogenic back pain and lower extremity pain; M77.32 Calcaneal spur, left foot; F17.290 Nicotine dependence, other tobacco product, uncomplicated; I10 Essential (primary) hypertension

== ENCOUNTER → 2024-06-03 15:13 | Outpatient (BNVA) | payer OTHER, SELFPAY | PROVIDERS: PCP Physician Assistant; Visit Provider Physician Assistant | DX: F11.20 Opioid dependence, uncomplicated (principal); F41.1 Generalized anxiety disorder; M61.362 Calcification and ossification of muscles associated with burns, left lower leg; M77.32 Calcaneal spur, left foot; I10 Essential (primary) hypertension; F17.290 Nicotine dependence, other tobacco product, uncomplicated; Z71.6 Tobacco abuse counseling | CPT/HCPCS: 96127; 99212 ==

== ENCOUNTER 2024-07-02 06:39 | Outpatient (REF) | payer OTHER, SELFPAY ==
--- OUTSIDE RECORDS SUMMARY | 2024-07-02 06:43 | XMS_ITS | Patient Health Record ---
Author Organization [facility] Address [address], [place] [id number] Care Team Providers Care Clerical And Office Support Workers Name Role Phone [facility] Primary Care Provider Un available Derrell Samaniego Unavailable [phone] Filomena Bowser Unavailable Reason For Referral No Information Encounters Encounter Location Date Provider Diagnosis [facility] [address] [place] [id number] 10/23/2023 Filomena Bowser Plan Of Treatment No Information Insurance Providers Payer Name Payer Address Payer Phone Subscriber Number Group Number Insured Name Patient Relationship to Insured Coverage Start Date Coverage End Date [place] [address] [place] [address] [id number] Javier Ni Self - patient is the insured 2
--- OUTSIDE RECORDS SUMMARY | 2024-07-02 06:43 | XMS_ITS ---
Author Organization [facility] Address [address], [place] [id number] Care Team Providers Care Gas Welder Apprentice Name Role Phone [facility] Primary Care Provider Un available Derrell Samaniego Unavailable [phone] Filomena Bowser Unavailable Encounters Encounter Location Date Provider Diagnosis [facility] [address] [place] [id number] 10/23/2023 Filomena Bowser Plan Of Treatment No Information Progress Notes * Javier NIDOB: [birth year] (48 yo F)Acc No.[id number]:10/23/2023 Case Management Patient:?Javier Ni Provider:?Filomena Bowser :1975???Age:48 Y???Sex:Female D ate:10/23/2023 Address:[address] [place], [place] [id number] Pcp:[facility] Subjective: * Chief Complaints: * ??? * HPI: ???Social Service:?Date of encounter?10-23-23.?Referral Source?walk-in, self.?Interpretation for medical provider?none.?Advocacy?none.?Follow-up Required:?yes.?Pt comprehension?Pt agrees with plan, Patient understood process and assisted with process.?Action taken (old)?Letter given to patient after photo copy made.? * Medical History:? Objective: Assessment: Plan: * Treatment: * Images: Billing Information: * Visit Code:? * Procedure Codes:? Care Plan Details* * Sign off status: Completed true * Provider:?Filomena Bowser Date:? Generated for Lydia celeste/Antonio/Maggy on:?07/02/2024 06:43 AM EST History and Physical Notes * HPI (History of Present Illness) Category Sub-Category Detail Notes Social Service Referral Source walk-in, self Interpretation for medical provider none Action taken (old) Letter given to janice ent after photo copy made Advocacy none Follow-up Required: yes Pt comprehension Pt agrees with plan, Patient understood process and assisted with process Date of encounter 10-23-23
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
--- OUTSIDE RECORDS SUMMARY | 2024-07-02 06:43 | XMS_ITS | Clinical Summary ---
Author Organization 175 [facility] Address [address] [place] [address] Phone Care Team Providers Care Hardness Inspector Name Role Phone Kd Arizmendi Primary Care Provider Social History Tobacco Use Types Packs/Day Years Used Date Smoking Tobacco: Never Assessed Sex and Gender Information Value Date Recorded Sex Assigned at Not on file Legal Sex Male 11:14 AM EST Gender Identity Not on file Sexual Orientation Not on file Plan of Treatment Upcoming Encounters Date Type Department Care Team ([facility] Contact Info) Description 08/01/2024 2:30 PM EDT Consult Orthopedic Surgery [place] [id number] [phone] Ken [place], DPHeron [address] [address] Health Maintenance Due Date Last Done Comments DTaP,Tdap,and Td Vaccines (1 - Tdap) 06/30/1994 Hepatitis B Vaccines (1 of 3 - 19+ 3-dose series) 06/30/1994 Cholesterol Screening (Lipid Panel) 03/29/2022 Colorectal Cancer Screening: Colonoscopy 03/29/2022 Depression Screening 03/29/2022 HIV Screening 03/29/2022 Hepatitis C Screening 03/29/2022 Social Influencers of Health Screening 03/29/2022 COVID-19 Vaccine (2023-2 5 season) 2023 Influenza Vaccine (#1) 2023 HIB Vaccines Aged Out No longer eligi ble based on patient's age to complete this topic HPV Vaccines Aged Out No longer eligi ble based on patient's age to complete this topic Hepatitis A Vaccines Aged Out No long er eligible based on patient's age to complete this topic IPV Vaccines Aged Out No longer eligi ble based on patient's age to complete this topic MMR Vaccines Aged Out No longer eligi ble based on patient's age to complete this topic Meningococcal ACWY Vaccine Aged Out N o longer eligible based on patient's age to complete this topic Meningococcal B Vacine Aged Out No lo nger eligible based on patient's age to complete this topic Pneumococcal Vaccine: Pediat rics (0 to 5 Years) and At-Risk Patients (6 to 64 Years) Aged Out No longer eligible b ased on patient's age to complete this topic RSV Immunization Patients Un nnamdi 20 months Aged Out No longer eligible b ased on patient's age to complete this topic Varicella Vaccines Aged Out No longer eligible based on patient's age to complete this topic Insurance [facility] Care Teams Hardness Inspector Relationship Specialty Start Date End Date Kd Arizmendi PA [address] [place] [phone] PCP - General Physician Police Lieutenant Patrol 06/19/24
--- OUTSIDE RECORDS SUMMARY | 2024-07-02 06:43 | XMS_ITS | Continuity of Care Document ---
Author Organization [place] - [facility], [facility] Address [address] [place] [address] Care Team Providers Care Heat Engineering Teacher Name Role Phone JONATHANTACOMIGUEL Primary Care Provider Assessment Encounter Date Assessment Date Assessment LastModified by Organization Details LastModified Time 06/17/2024 06/17/2024 1. Nasal obstruction 2. Nasal septal deviation 3. Inferior turbinate hypertrophy 4. Nasal trauma 48yo male s/p septorhinoplasty w/ inferior turbinate reduction on 06/05/24. He is recovering well postoperatively with no concerns today. Cast and splints removed Follow-up as scheduled in 1 month [email or web address] Not available 06/23/2024 11:16:46 Plan of Treatment Reminders Order Date Submit Date Provider Last Modified By Organization Details Last Modified Time Details Appointments Establish ed 15 2024 01:00P M JOANNE NICKERSON MD Not available Not available Not available Lab None recorded. Referral None recorded. Procedures None recorded. Surgeries None recorded. Imaging None recorded. Medication Orders None recorded. Patient TargetsNo targets recorded. Patient InstructionsNo instructions recorded. Reason for Referral None Reported. Problems Name Problem SNOMED Code Status Onset Date Resolution Date Notes Provider Name and Address Organization Details Recorded Time Nasal congestion 16736995 Active 2023 AP Gil MD [address] [place] [address], [place], [address], [facility] 15:21:15 Fractured nasal bones 056591647 Active 2023 AP Gil MD [address] [place] [address], [place], [address], [facility] - [facility] [place] 4 16:08:13 Nasal obstruction 228005400 Active 2023 JOANNE NICKERSON MD [address] [place] [address], [place], [address], [facility] - [facility] [place] 4 17:04:18 Deviated nasal septum 789872486 Active 2023 JOANNE NICKERSON MD [address] [place] [address], [place], [address], [facility] [place] 4 17:04:21 Acquired deformity of nose 80666934 Active 2023 JOANNE NICKERSON MD [address] [place] [address], [place], [address], [facility] - [facility] 4 17:04:26 Tumor of inferior turbinate 583159250 Active 2023 JOANNE NICKERSON MD [address] [place] [address], [place], [address], [facility] [place] 4 17:04:35 Hypertrophy of nasal turbinates 42210054 Active 2023 JOANNE NICKERSON MD [address] [place] [address], [place], [address], [facility] [place] 4 17:04:41 Problem Notes None recorded. Procedures Surgical History Date Name Laterality Status Provider Name and Address Organization Details Recorded Time 06/05/19 25 rhinoseptoplasty completed JOANNE NICKERSON MD [address] [place] [address], [phone], [facility] - [facility] 06/05/2024 10:59:16 01/09/20 24 NasalEndoscopy_DP completed AP MORALEZ MD [address] [place] [address],[address], [address], [facility] - [facility] 01/09/2024 15:29:03 Imaging Results None recorded. Procedure Notes None recorded. Medical Equipment None [...] Updated DateTime 06/17/2024 182.88 cm 27.1 kg/m2 10478.47 g Cynthia Nguyễn [place] - [facility] 06/17/2024 15:42:26 Social History None recorded. Functional Status None recorded. Mental Status None recorded. Family History Nothing Reported. Medical History No medical history recorded. Past Encounters Encounter ID Performer Location Encounter Start Date Encounter Closed Date Diagnosis/Indication Diagnosis SNOMED-CT Code Diagnosis ICD10 Code Diagnosis Note [id number] JOANNE NICKERSON MD [facility] [address] [address] 06/17/2024 15:33:11 06/17/2024 16:12:10 Nasal obstruction 245273623 J34.89 Hypertroph y of nasal turbinates 09872450 J34.3 Deviated nasal septum 12 3478975 J34.2 Health Concerns Section Related Observation LastModified by Organization Detai ls LastModified Time None Recorded Concern Status LastModified by Organization Details LastModified Time None Recorded Payers Encounter Date Sequence Insurance Name Policy Number Policy Moreira Covered Member ID Moreira Member ID Guarantor Name 06/17/2024 1 [facility] (MEDICAID HMO) LINDEN Soliz [id number] Javier Soliz Notes Date Note Type Note Provider Name and Address Organization Details Recorded Time 06/17/2024 text/html 48yo male s/p septorhinoplasty with inferior turbinate reduction on 06/05/24. He is doing well postoperatively - no concerns today. JOANNE NICKERSON MD [address] [place] [address], [phone] - [facility] 06/23/2024 11:17:48
== END 2024-07-02 06:40 | disposition home or self-care (01) ==
LOC: CF 06:39
PROVIDERS: Visit Provider Anesthesiology
DX: Z13.89 Encounter for screening for other disorder (principal)

== ENCOUNTER 2024-08-20 06:41 | Outpatient (REF) | payer OTHER, SELFPAY ==
--- OUTSIDE RECORDS SUMMARY | 2024-08-20 06:44 | XMS_ITS | Data Portability ---
Author Organization [place] - [facility], Allergy Address [address] [place] [phone] Care Team Providers Care Vein Pumper Name Role Phone MIGUEL CASTILLO Primary Care Provider [phone] Assessment Encounter Date Assessment Date Assessment LastModified [...] and used and managed by Dr. Mcdaniel. [email or web address] Not available 03/21/2024 17:04:46 06/17/2024 06/17/2024 1. Nasal obstruction 2. Nasal septal deviation 3. Inferior turbinate hypertrophy 4. Nasal trauma 48yo male s/p septorhinoplasty w/ inferior turbinate reduction on 06/05/24. He is recovering well postoperatively with no concerns today. Cast and splints removed Follow-up as scheduled in 1 month Not available 06/23/2024 11:16:46 07/09/2024 07/09/2024 48yo male s/p septorhinoplasty w/ inferior turbinate reduction on 06/05/24. He has been vaping the last several weeks He has noted some redness around the nose - this was at its worst last week He has been using bacitracin ointment and naproxen On exam, he has ongoing cellulitis of his nasal skin We discussed the need to discontinue smoking or vaping completely - Keflex 500mg BID x 10 days - Follow-up in several weeks or sooner for worsening symptoms [email or web address] Not available 07/09/2024 13:12:28 08/14/2024 08/14/2024 48yo male s/p septorhinoplasty w/ inferior turbinate reduction on 06/05/24. He has since stopped vaping and smoking. His nose is healing very well - his breathing is great, 8-10/10 on both sides. This is a huge success if he continues to heal well. He is happy with the results. Follow-up in 6 months for re-evaluation Not available 08/14/2024 09:26:25 Plan of Treatment Reminders Order Date Submit Date Provider Last Modified By Organization Details Last Modified Time Details Appointments None recorded. Lab None recorded. Referral facial plastic surgeon referral - Appt 02/15 @ 11:30am 2023 024 ATHENAX [facility], [address], [place], [address], 11:33:14 Procedures None recorded. Surgeries rhinoplast y (SURG) 2023 024 [email or web address] Not available 10:14:[address], sinuses, w/o contrast 2023 024 [email or web address] 4 [facility], [address] [place] [address], [phone], 4 16:13:24 Medication Orders cephalexin 500 mg capsule 2024 025 [facility] #[id number], [address] [facility], [place], [address], 5 09:12:09 Patient TargetsNo targets recorded. Patient InstructionsNo instructions [...] observ ation record ed. [email or web address] [facility] [address], [address], 01/09/2024 16:08:30 Result Notes None recorded. Problems Name Problem SNOMED Code Status Onset Date Resolution Date Notes Provider Name and Address Organization Details Recorded Time Nasal congestion 13837023 Active 2023 AP Gil MD [address] [place] [address], [phone], [place] - [facility] 4 15:21:15 Fractured nasal bones 156709079 Active 2023 AP Gil MD [address] [place] [address], [phone], [place] - [facility] 4 16:08:13 Nasal obstruction 469541858 Active 2023 JOANNE MCDANIEL MD [address] [place] [address], [phone], [facility] - [facility] 4 17:04:18 Deviated nasal septum 187432075 Active 2023 JOANNE MCDANIEL MD [address] [place], [place] [address], [place], [address], [facility] - [facility] 4 17:04:21 Acquired deformity of nose 87091217 Active 2023 JOANNE MCDANIEL MD [address] [place] [address], [place], [address], [facility] - [facility] 4 17:04:26 Tumor of inferior turbinate 991260416 Active 2023 JOANNE MCDANIEL MD [address] [place] [address], [place], [address], [facility] 4 17:04:35 Hypertrophy of nasal turbinates 82672593 Active 2023 JOANNE MCDANIEL MD [address] [place] [address], [place], [address], [facility] - [facility] 4 17:04:41 Problem Notes None recorded. Procedures Surgical History Date Name Laterality Status Provider Name and Address Organization Details Recorded Time 06/05/19 25 rhinoseptoplasty completed JOANNE MCDANIEL MD [address] [place] [address], [phone], [facility] 06/05/2024 10:59:16 01/09/20 24 NasalEndoscopy_DP completed AP MORALEZ MD [address] [place] [address], [phone], [facility] 01/09/2024 15:29:03 Imaging Results Imaging Date Name Status LastModified by Organiz ation Details LastModified Time 01/09/2024 CT, sinuses, w/o contrast completed [email or web address] [facility] [address], [address], 01/09/2024 16:08:30 Procedure Notes None recorded. Medical Equipment None Reported. Allergies Allergen ID Allergen Name Allergen Category Reaction Reaction Severity Criticality Documentation Date Start Date Code Code System Note Provider Name and Address Organization Details Recorded Time 312714 hydroxyzi ne Not available Not available Not available Not available 08/14/2024 5553 RxNorm Nabila love [place] - [facility] 5 09:11:16 Medications Name Sig Start Date Stop Date Status Note LastModified by Organization Details LastModified Time amoxicillin 500 mg capsule 08/14 completed Not Available Not Available Not Available acetaminoph en 325 mg tablet TAKE 2 TABLETS 4 TIMES A DAY BY ORAL ROUTE FOR 7 DAYS. active Not Available Not Available No t Available gabapentin 600 mg tablet TAKE 1 TABLET BY MOUTH THREE TIMES A DAY NEEDED FOR PAIN active Not Available Not Available No t Available cetirizine 10 mg tablet TAKE 1 TABLET BY MOUTH EVERY DAY NEEDED FOR ALLERGIES active Not Available Not Available No t Available ibuprofen 800 mg tablet TAKE 1 TABLET BY MOUTH FOUR TIMES A DAY FOR 7 DAYS 08/14 completed Not Available Not Available Not Available nicotine (polacrilex ) 2 mg gum 2 MG BUCCALLY EVERY 2 HOURS NEEDED FOR NICOTINE CRAVINGS FOR 15 DAYS 08/14 completed Not Available Not Available Not Available meloxicam 15 mg tablet 07/05 completed Not Available Not Available Not Available Medrol (Danyel) 4 mg tablets in a dose pack Take 1 dose pk every day by oral route. 08/14 completed Not Available Not Available Not Available gabapentin 400 mg capsule 06/17 completed Not Available Not Available Not Available clindamycin HCl 150 mg capsule TAKE 1 CAPSULE BY MOUTH THREE TIMES A DAY 08/14 completed Not Available Not Available Not Available hydroxyzine pamoate 50 mg capsule 06/17 completed Not Available Not Available Not Available bacitracin 500 unit/gram topical ointment APPLY 1 APPLICATI ON TOPICALLY TWICE A DAY FOR 14 DAYS 08/14 completed Not Available Not Available Not Available amlodipine 5 mg tablet active Not Available Not Available Not Available baclofen 20 mg tablet TAKE 1 TABLET BY MOUTH 2 TIMES A DAY FOR 15 DAYS active Not Available Not Available No t Available famotidine 20 mg tablet TAKE 1 TABLET BY MOUTH EVERYDAY AT BEDTIME active Not Available Not Available No t Available nicotine (polacrilex ) 4 mg gum active Not Available Not Available N ot Available cephalexin 500 mg capsule TAKE 1 CAPSULE BY MOUTH TWICE A DAY FOR 10 DAYS 08/14 completed Not Available Not Available Not Available pantoprazol e 40 mg tablet,grisel yed release TAKE 1 TABLET BY MOUTH HALF AN HOUR BEFORE BREAKFAST active Not Available Not Available No t Available lidocaine 5 % topical patch APPLY 1 PATCH DAILY NEEDED FOR PAIN -- 12 HOURS ON & 12 HOURS OFF active Not Available Not Available No t Available nicotine 21 mg/24 hr daily transdermal patch 06/17 completed Not Available Not Available Not Available ibuprofen 600 mg tablet 08/14 completed Not Available Not Available Not Available fluticasone propionate 50 mcg/actuati on nasal spray,suspe nsion ONE SPRAY IN EACH NOSTRIL TWICE A DAY active Not Available Not Available No t Available sertraline 50 mg tablet TAKE 1 TABLET BY MOUTH EVERY DAY active Not Available Not Available No t Available ipratropium bromide 21 mcg (0.03 %) nasal spray 07/05 completed Not Available Not Available Not Available naproxen 500 mg tablet TAKE 1 TABLET BY MOUTH TWICE A DAY FOR PAIN FOR 15 DAYS active Not Available Not Available No t Available oxycodone 5 mg tablet Take 1 tablet every 4 hours by oral route. 08/14 completed Not Available Not Available Not Available Saline Nasal 0.65 % spray aerosol TAKE 1 SPRAY 4 TIMES A DAY BY NASAL ROUTE FOR 7 DAYS. active Not Available Not Available No t Available Gavilax 17 gram/dose oral powder 17 G BY MOUTH DAILY active Not Available Not Available No t Available naloxone 4 mg/actuatio n nasal spray 08/14 completed Not Available Not Available Not Available Vitals Date Recorded Body height Provider Name an d Address Organization Details Last Updated DateTime 07/09/2024 182.88 cm GINA BOOKER [place] - [facility] 07/09/2024 13:00:58 Date Recorded Body height Body weight Provider Name and Address Organization Details Last Updated DateTime 08/14/2024 182.88 cm 97846.47 g Nabila Olson [place] - [facility] 08/14/2024 09:11:00 Date Recorded Body height Body mass index (BMI) Body weight Provider Name and Address Organization Details Last Updated DateTime 01/09/2024 182.88 cm 26.6 kg/m2 82081.1 g Parul Win [place] - [facility] 01/09/2024 14:58:27 Date Recorded Body height Body mass index (BMI) Body weight Provider Name and Address Organization Details Last Updated DateTime 03/21/2024 182.88 cm 26.6 kg/m2 70502.1 g Parul Win [place] - [facility] 03/21/2024 15:24:13 Date Recorded Body height Body mass index (BMI) Body weight Provider Name and Address Organization Details Last Updated DateTime 06/17/2024 182.88 cm 27.1 kg/m2 85054.47 g Cynthia Nguyễn [facility] 06/17/2024 15:42:26 Social History None recorded. Functional Status None recorded. Mental Status None recorded. Family History Nothing Reported. Medical History Condition Response Allergies/Hayfever N Heart Problems N Anxiety Y Tonsil Infections N Emphysema N Migraines N Thyroid Problems N Depression N COPD N Developmental Delay N Glaucoma N Nasal or Sinus Problems Y Anemia N Immune System Disorder N Anesthesia Complications N Heart Attack (OK) N Other Skin Condition N Diabetes N Rhinitis N Bleeding Disorder N Food Allergy N Hearing Loss N Arthritis Y Hyperlipidemia N Cancer N Stroke N Dementia N Nasal polyps N Asthma N Sleep Disorder Y High Cholesterol N GERD/Reflux Y Liver Disease N Headaches N Fibromyalgia N Hypertension Y Speech Delay N Kidney Disease N Past Encounters Encounter ID Performer Location Encounter Start Date Encounter Closed Date Diagnosis/Indication Diagnosis SNOMED-CT Code Diagnosis ICD10 Code Diagnosis Note [id number] AP MORALEZ MD [facility] [address] [address] 01/09/2024 14:36:41 01/09/2024 16:13:23 Nasal congestion 20773299 R09.81 Nasal endo was negative for polyps but notable for left septal deviation. I will order a max/face CT to evalute his anatomy given his prior history of facial trauma and possible fracture. History of facial injury 504611228 Z87.828 Nasal endo was negative for polyps but notable for left septal deviation. I will order a max/face CT to evaluate his anatomy given his prior history of facial trauma and possible fracture. Fractured nasal bones [address] max/face was obtained which showed [...] will refer to plastic surgery for this. [id number] JOANNE MCDANIEL MD [facility] [address] [address] 03/21/2024 15:14:33 03/21/2024 16:56:10 Nasal obstruction 882155342 J34.89 Deviated nasal septum 12 3411747 J34.2 Acquired d eformity of nose 46678604 M95.0 Fractured nasal bones 26 7747677 S02.2XXA Hypertroph y of nasal turbinates 31117445 J34.3 [id number] JOANNE MCDANIEL MD [facility] [address] [address] 06/17/2024 15:33:11 06/17/2024 16:12:10 Nasal obstruction 763006210 J34.89 Hypertroph y of nasal turbinates 91757147 J34.3 Deviated nasal septum 12 9213617 J34.2 [id number] JOANNE MCDANIEL MD [facility] [address] [address] 07/09/2024 12:58:35 07/09/2024 13:14:42 Deviated nasal septum 398365565 J34.2 Nasal obstruction 916789 000 J34.89 [id number] JOANNE MCDANIEL MD [facility] [address] [address] 08/14/2024 09:07:18 08/14/2024 09:24:16 Deviated nasal septum 036444317 J34.2 Nasal obstruction 895015 000 J34.89 Health Concerns Section Related Observation LastModified by Organization Detai ls LastModified Time None Recorded Concern Status LastModified by Organization Details LastModified Time None Recorded Advance Directives Directive None Recorded Payers Encounter Date Sequence Insurance Name Policy Number Policy Moreira Covered Member ID Moreira Member ID Guarantor Name 01/09/2024 1 [facility] [employer] PLAN (MEDICAID HMO) LINDEN Soliz [id number] Javier Soliz 03/21/2024 1 [facility] PLAN (MEDICAID HMO) LINDEN Soliz [id number] Javier Soliz 06/17/2024 1 [facility] PLAN (MEDICAID HMO) LINDEN Soliz [id number] Javier Soliz 07/09/2024 1 [facility] (MEDICAID HMO) LINDEN Soliz [id number] Javier Soliz 08/14/2024 1 [facility] (MEDICAID HMO) LINDEN Soliz [id number] Javier Soliz Notes Date Note Type Note [...] of smell is ok. AP MORALEZ MD [address] [place] [address], [phone] - [facility] 01/09/2024 16:12:26 4 text/html 48yo male who [...] on each side is scored as follows:Right: 5/10Left: /10? ? ?Associated symptoms: nasal obstruction, nasal congestionMedications [...] were otherwise clear. JOANNE MCDANIEL MD [address],[place] [facility], [place], [address], [facility] - [facility] 03/21/2024 17:10:07 text/html 48yo male s/p septorhinoplasty with inferior turbinate reduction on 06/05/24. He is doing well postoperatively - no concerns today. JOANNE MCDANIEL MD [address],[place] [facility], [place], [address], [facility] 06/23/2024 11:17:48 text/html 48yo male s/p septorhinoplasty w/ inferior turbinate reduction on 06/05/24. He has been vaping the last several weeksHe has noted some redness around the nose - this was at its worst last weekHe has been using bacitracin ointment and naproxen JOANNE MCDANIEL MD [address], [address], [facility] 07/09/2024 13:12:41 text/html 48yo male s/p septorhinoplasty w/ inferior turbinate reduction on 06/05/24.At his prior visit - he had some erythema/edema at the tip and was vaping.He has since stopped this and finished a course of keflex.Overall he is doing great.He is sleeping well.Healing well.No concerns! On a scale of 1 to 10, with 1 being the worst and 10 being the best, nasal breathing on each side is scored as follows:Right: 10/10 (Preop 5/10)Left: 8/10 (preop 2/10) JOANNE MCDANIEL MD [address],[place] [address] [place] [address], [phone], [facility] - [facility] 08/14/2024 09:26:38
--- OUTSIDE RECORDS SUMMARY | 2024-08-20 06:44 | XMS_ITS | Encounter Summary ---
Author Organization [facility] Address [address] [place] [address] Care Team Providers Care Senior Mobile Application Developer Name Role Phone Kd Arizmendi Primary Care Provider Encounter Details Date Type Department Care Team (Late st Contact Info) Description 08/14/2024 Telephone Orthopedic Surgery - [place] [address] [phone] Ken John DPM [address] [address] Social History Tobacco Use Types Packs/Day Years Used Date Smoking Tobacco: Never Assessed Sex and Gender Information Value Date Recorded Sex Assigned at Not on file Legal Sex Male 11:14 AM EST Gender Identity Not on file Sexual Orientation Not on file documented as of this encounter Progress Notes * Sherly Talavera - 08/14/2024 4:24 PM EDT is calling requesting a call back to schedule surgery with Dr. John documented in this encounter Plan of Treatment Upcoming Encounters Date Type Department Care Team (Latest Contact Info) Description 09/20/2024 10:30 AM EDT Hospital Encounter [facility] [place] [facility] Main [place] [address] [place] [phone] Ken John DPM [address] [address] 09/20/2024 10:30 AM EDT - 09/20/2024 12:30 PM EDT Surgery [facility] [place] [facility] Main [place] [address] [place] [phone] Ken John DPM [address] [address] REPAIR TENDON ACHILLES [[id number] (CPT??)] 10/03/2024 2:00 PM EDT Office Visit Orthopedic Surgery - [place] [address] [phone] Ken John DPM [address] [address] Scheduled Procedures Name Priority Associated Diagnoses Date/Ti me REPAIR TENDON ACHILLES Calcaneal spur of left foot Strain of left Achilles tendon, sequela 09/20/2024 10:30 AM EDT EXCISION BONE SPUR LOWER EXTREMITY Calcaneal spur of left foot Strain of left Achilles tendon, sequela 09/20/2024 10:30 AM EDT documented as of this encounter Visit Diagnoses Not on filedocumented in this encounter Care Teams Senior Mobile Application Developer Relationship Specialty Start Date End Date Kd Arizmendi PA [address] [place] [phone] PCP - General Physician Bar Pilot 06/19/24 documented as of this encounter
--- OUTSIDE RECORDS SUMMARY | 2024-08-20 06:44 | XMS_ITS | Clinical Summary ---
Author Organization [address] [place] [address] [place] [phone] Phone Care Team Providers Care Value Stream Coach Name Role Phone Kd Arizmendi Primary Care Provider Allergies No known active allergies Medications acetaminophen (TYLENOL) 325 mg tablet TAKE 2 TABLETS 4 TIMES A DAY BY ORAL ROUTE FOR 7 DAYS. 5 Active amLODIPine (NORVASC) 5 mg tablet Take 1 tablet (5 mg total) by mouth 1 (one) time each day. 5 Active bacitracin 500 unit/gram ointment apply 1 application topically twice a day for 14 days 5 Active baclofen (LIORESAL) 20 mg tablet 5 Active cephalexin (KEFLEX) 500 mg capsule Take 1 capsule (500 mg total) by mouth 2 (two) times a day. for 10 days 5 Active cetirizine (ZyrTEC) 10 mg tablet Take 1 tablet (10 mg total) by mouth. 5 Active clindamycin (CLEOCIN) 150 mg capsule Take 1 capsule (150 mg total) by mouth. 4 Active famotidine (PEPCID) 20 mg tablet Take 1 tablet (20 mg total) by mouth at bedtime. 5 Active fluticasone propionate (FLONASE) 50 mcg/actuation nasal spray one spray in each nostril twice a day 5 Active gabapentin (NEURONTIN) 600 mg tablet Take 1 tablet (600 mg total) by mouth 3 (three) times a day if needed. 5 Active ibuprofen (ADVIL,MOTRIN) 800 mg tablet TAKE 1 TABLET BY MOUTH FOUR TIMES A DAY FOR 7 DAYS 5 Active ipratropium (ATROVENT) 21 mcg (0.03 %) nasal spray INSTILL 2 SPRAYS INTO BOTH NOSTRILS TWICE DAILY FOR 30 DAYS 4 Active lidocaine (LIDODERM) 5 % patch APPLY 1 PATCH DAILY NEEDED FOR PAIN -- 12 HOURS ON & 12 HOURS OFF 5 Active meloxicam (MOBIC) 15 mg tablet Take 1 tablet (15 mg total) by mouth 1 (one) time each day. 4 Active methylPREDNISol one (MEDROL DOSPAK) 4 mg tablet TAKE 6 TABLETS ON DAY 1 DIRECTED ON PACKAGE AND DECREASE BY 1 TAB EACH DAY FOR A TOTAL OF 6 DAYS 5 Active naproxen (NAPROSYN) 500 mg tablet 5 Active nicotine polacrilex (NICORETTE) 2 mg gum 2 MG BUCCALLY EVERY 2 HOURS NEEDED FOR NICOTINE CRAVINGS FOR 15 DAYS 5 Active Active Problems Problem Noted Date Diagnosed Date Calcaneal spur of left foot 08/01/2024 Strain of left Achilles tendon 08/01/2024 Encounters Date Type Department Care Team Description 08/14/2024 Telephone Orthopedic Surgery [facility] [address] [phone] Ken John DPM 08/01/2024 2:30 PM EDT Consult Orthopedic Surgery [facility] [address] [phone] Ken John DPM Pain in left foot (Primary Dx); Calcaneal spur of left foot; Strain of left Achilles tendon, sequela from Last 3 Months Social History Tobacco Use Types Packs/Day Years Used Date Smoking Tobacco: Never Assessed Sex and Gender Information Value Date Recorded Sex Assigned at Not on file Legal Sex Male 11:14 AM EST Gender Identity Not on file Sexual Orientation Not on file Plan of Treatment Upcoming Encounters Date Type Department Care Team (Latest Contact Info) Description 09/20/2024 10:30 AM EDT Hospital Encounter [facility] Main OR [address] [place] [phone] Ken John DPM [address] [address] 09/20/2024 10:30 AM EDT - 09/20/2024 12:30 PM EDT Surgery [facility] Main OR [address] [place] [phone] Ken John DPM [address] [address] REPAIR TENDON ACHILLES [37107 (CPT??)] 10/03/2024 2:00 PM EDT Office Visit Orthopedic Surgery - [place] [address] [phone] Ken John DPM [address] [address] Scheduled Procedures Name Priority Associated Diagnoses Date/Ti me REPAIR TENDON ACHILLES Calcaneal spur of left foot Strain of left Achilles tendon, sequela 09/20/2024 10:30 AM EDT EXCISION BONE SPUR LOWER EXTREMITY Calcaneal spur of left foot Strain of left Achilles tendon, sequela 09/20/2024 10:30 AM EDT Health Maintenance Due Date Last Done Comments DTaP,Tdap,and Td Vaccines (1 - Tdap) 06/30/1994 Hepatitis B Vaccines (1 of 3 - 19+ 3-dose series) 06/30/1994 Cholesterol Screening (Lipid Panel) 03/29/2022 Colorectal Cancer Screening: Colonoscopy 03/29/2022 Depression Screening 03/29/2022 HIV Screening 03/29/2022 Hepatitis C Screening 03/29/2022 Social Influencers of Health Screening 03/29/2022 COVID-19 Vaccine (2023-2 5 season) 2023 Influenza Vaccine (Season Ended) 2024 HIB Vaccines Aged Out No longer eligi [...] age to complete this topic Meningococcal B Vaccine Aged Out No l onger eligible based on patient's age to complete [...] patient's age to complete this topic Insurance [facility] Care Teams Value Stream Coach Relationship Specialty Start Date End Date Kd Arizmendi PA [address] [place] [phone] PCP - General Physician Head Operator Sulfide 06/19/24
--- OUTSIDE RECORDS SUMMARY | 2024-08-20 06:44 | XMS_ITS | Patient Health Record ---
Author Organization [facility] Address [address] [place], [place] [id number] Care Team Providers Care Medical Insurance Claims Specialist Name Role Phone [facility] Primary Care Provider Un available Derrell Samaniego Unavailable [phone] Filomena Bowser Unavailable [phone] Reason For Referral No Information Encounters Encounter Location Date Provider Diagnosis [facility] [address] [place] [phone] 10/23/2023 Filomena Bowser Plan Of Treatment No Information Insurance Providers Payer Name Payer Address Payer Phone Subscriber Number Group Number Insured Name Patient Relationship to Insured Coverage Start Date Coverage End Date [place] Medicaid Standard [address] [place] [address] [id number] Javier Ni Self - patient is the insured 2
--- OUTSIDE RECORDS SUMMARY | 2024-08-20 06:45 | XMS_ITS ---
Author Organization [facility] Address [address] [place], [place] [phone] Care Team Providers Care Chart Collector Name Role Phone [facility] Primary Care Provider Un available Derrell Samaniego Unavailable [phone] Filomena Bowser Unavailable Encounters Encounter Location Date Provider Diagnosis [facility] [address] [place] [phone] 10/23/2023 Filomena Bowser Plan Of Treatment No Information Progress Notes * Javier NIDOB: [birth year] (48 yo F)Acc No.[id number]:10/23/2023 Case Management Patient:?Javier Ni Provider:?Filomena Bowser :1975???Age:48 Y???Sex:Female D ate:10/23/2023 Address:[address] [place], [place] [phone] Pcp:[facility] Subjective: * Chief Complaints: * ??? * [...] Provider:?Filomena Bowser Date:? Generated for Lydia celeste/Antonio/Maggy on:?08/20/2024 06:44 AM EDT History and Physical Notes * HPI (History [...]
== END 2024-08-20 06:42 | disposition home or self-care (01) ==
LOC: CF 06:41
PROVIDERS: Visit Provider Anesthesiology
DX: Z13.89 Encounter for screening for other disorder (principal)

== ENCOUNTER 2024-08-27 06:18 | Outpatient (REF) | payer OTHER, SELFPAY ==
--- NOTE | ~2024-08-27 | FL_ITS ---
EXAMINATION: FL GUIDANCE ONLY HISTORY: M51.362 - Other intervertebral disc degeneration, lumbar region with COMPARISON: None available. TECHNIQUE: Fluoroscopy time: 0.6. Cumulative Dose: 6.522 mGy. DAP: 0.30712 mGym2 Images: 11. FINDINGS: Images demonstrate needles and contrast material in the regions of the bilateral L3-4, L4-5, and L5-S1 facet joints. FL/FL guidance in treatment room IMPRESSION: Fluoroscopy during procedure. Please see procedure report for additional information. Electronically signed by: Braulio Aldana MD 08/28/2024 03:47 PM EDT
--- OUTSIDE RECORDS SUMMARY | 2024-08-27 06:21 | XMS_ITS | Encounter Summary ---
Author Organization [facility] Address [address] [place] [address] Care Team Providers Care Cost Coordinator Name Role Phone Kd Arizmendi Primary Care Provider Encounter Details Date Type Department Care Team (Late st Contact Info) Description 08/14/2024 Telephone Orthopedic Surgery - [place] [address] [phone] Ken John DPM [address] [address] Social History Tobacco Use Types Packs/Day Years [...] Description 09/20/2024 10:30 AM EDT Hospital Encounter [facility] Main OR [address] [place] [phone] Ken John DPM [address] [address] 09/20/2024 10:30 AM EDT - 09/20/2024 12:30 PM EDT Surgery [facility] Main OR [address] [place] [phone] Ken John DPM [address] [address] REPAIR TENDON ACHILLES [[id number] (CPT??)] 10/03/2024 2:00 PM EDT Office Visit Orthopedic Surgery - [place] [address] [phone] Ken John DPM [address] [address] Scheduled Procedures Name Priority Associated Diagnoses Date/Ti me REPAIR TENDON ACHILLES Calcaneal spur of left foot Strain of left Achilles tendon, sequela 09/20/2024 10:30 AM EDT EXCISION BONE SPUR LOWER EXTREMITY Calcaneal spur of left foot Strain of left Achilles tendon, sequela 09/20/2024 10:30 AM EDT documented as of this encounter Visit Diagnoses Not on filedocumented in this encounter Care Teams Cost Coordinator Relationship Specialty Start Date End Date Kd Arizmendi PA [address] [place] [phone] PCP - General Physician Hair And Makeup Designer 06/19/24 documented as of this encounter
--- OUTSIDE RECORDS SUMMARY | 2024-08-27 06:21 | XMS_ITS | Clinical Summary ---
Author Organization [address] [place] [address] [place] [phone] Phone Care Team Providers Care Laboratory Machinist Name Role Phone Kd Arizmendi Primary Care Provider [phone] Allergies No known active allergies Medications acetaminophen [...] Care Team Description 08/14/2024 Telephone Orthopedic Surgery [facility] [address] [phone] Ken John DPM 08/01/2024 2:30 PM EDT Consult Orthopedic Surgery [facility] [address] [phone] Ken John DPM Pain in left foot [...] Description 09/20/2024 10:30 AM EDT Hospital Encounter [facility] Main OR [address] [place] [phone] Ken John DPM [address] [address] 09/20/2024 10:30 AM EDT - 09/20/2024 12:30 PM EDT Surgery [facility] Main OR [address] [place] [phone] Ken John DPM [address] [address] REPAIR TENDON ACHILLES [[id number] (CPT??)] 10/03/2024 2:00 PM EDT Office Visit Orthopedic Surgery - [place] [address] [phone] Ken John DPM [address] [address] Scheduled Procedures Name Priority Associated Diagnoses Date/Ti [...] patient's age to complete this topic Insurance [facility] [place] [place] [phone] Care Teams Laboratory Machinist Relationship Specialty Start Date End Date Kd Arizmendi PA [address] [place] [phone] PCP - General Physician Glove Printer 06/19/24
== END 2024-08-27 06:19 | disposition home or self-care (01) ==
LOC: CF 06:18
PROVIDERS: Visit Provider Anesthesiology
DX: M47.817 Spondylosis without myelopathy or radiculopathy, lumbosacral region (principal); M51.362 Other intervertebral disc degeneration, lumbar region with discogenic back pain and lower extremity pain
CPT/HCPCS: 64493; 64494; J2003; J2795; Q9967

== ENCOUNTER 2024-08-27 10:11 | Outpatient (AMB) | payer OTHER, SELFPAY ==
[2024-08-27 10:19] VITALS: BP 120/78; PULSE 75; RESP 16; O2SAT 96
--- NOTE | 2024-08-27 10:19 | MHC.OFFVIS ---
Vital Signs 08/27/24 10:19 08/27/24 11:05 BP 120/78 118/72 Blood Pressure Location Lt brachial Lt brachial Position Sitting Sitting Respiration 16 16 Pulse 75 76 Pulse Source Pulse Oximeter Pulse Oximeter Pulse Oximetry (%) 96 96 Oxygen Delivery Method Room Air Room Air Intake Visit Reasons: BILATERAL DIAGNOSTIC L3, L4, DRL5 MBB Digital Music Instructor Required: No Allergies No Known Drug Allergies Allergy (Unknown, Verified 08/27/24 10:19) Unknown Medication List - Last Reconciled 08/27/24 by Jessica Og LPN amlodipine 5 mg PO DAILY baclofen 20 mg PO BID 15 days cetirizine (Zyrtec) 10 mg PO DAILY PRN 90 days famotidine (Pepcid) 20 mg PO BEDTIME 90 days fluticasone propionate 50 mcg/actuation 1 spray intranasal BID 30 days gabapentin 600 mg PO TID 90 days lidocaine 5% (Lidoderm) 1 patch topical DAILY PRN MDD remove after 12 hours methadone 10 mg IM Q4H PRN naloxone 4 mg/actuation 1 spray intranasal DAILY naproxen 500 mg PO BID 15 days nicotine (polacrilex) 2 mg buccal Q2H PRN 15 days pantoprazole 40 mg PO DAILY polyethylene glycol 3350 (Miralax) 17 grams PO DAILY sertraline 50 mg PO DAILY PFSH Medical History Hepatitis C Methadone use Maxillary fracture Chronic infection of sinus Headaches, cluster GERD (gastroesophageal reflux disease) Family History Father Kidney failure Prostate cancer Mother DMII (diabetes mellitus, type 2) FH: HTN (hypertension) Family history of pulmonary embolism Social History Housing: House Alcohol intake: former Patient Tobacco Use Status: Current everyday Tobacco user Tobacco use type: Cigarette Cigarettes Per Day: 6 e-Cigarette/Vaping Use: Never Used Substance Use Type: Heroin and Opiates service: No Current occupational status: disabled Cognitive needs: No Hearing needs: No Vision needs: No Physical Exam Vital Signs: Last Vital Signs Pulse 76 08/27/24 11:05 Resp 16 08/27/24 11:05 BP 118/72 08/27/24 11:05 Pulse Ox 96 08/27/24 11:05 Oxygen Delivery Method Room Air 08/27/24 11:05 Assessment & Plan Assessment & Plan (1) Lumbosacral spondylosis: Code(s): M47.817 - Spondylosis without myelopathy or radiculopathy, lumbosacral region Category: Medical Plan Diagnostic 2. medial branch block L3,L4 dorsal ramus L5 bilateral.? ? ?Informed consent was explained to the patient. All questions were explained and? answered.? The patient was taken inside the operating room where she was positioned prone on the operating table. Time-out was performed delineating correct site, side, the nature of the procedure, patient's allergy, . All operating room staff was participating in OR time-out procedure. ? ? The lower back was prepped with ChloraPrep and draped with sterile towels.? C-arm was brought over the operating field and sq picture of L4-, L5 vertebra and S1 AREA were delineated on the screen.? Point of interest were delineated as confluence of superior articular process of L4 and L5 vertebra bilaterally with corresponding transverse processes as well as confluence of the sacral alae bilaterally with superior articular process of S1.? The projection of the point of interest to the skin were injected with the small amount of local anesthetic lidocaine 2% mixed with ropivacaine 0.5% 1-1 approximately 1 cc.? After that 22 gauge 3.5 inch spinal needle was driven sequentially to the points of interest in tunnel vision fashion. After needles gently contacted the bone at the point of interests the needle was injected with small amount of the contrast.? The injection of the contrast did not demonstrate any intravascular or intrathecal spread of the contrast.? After that injection of the? bupivacaine with epinephrine 0.5%-1cc was performed at each needle location.??after that the needles were removed and Bandaids were applied. ? Upon completion of the injections? needle was? removed and sterile Band-Aids were applied.? The patient tolerated procedure very well. Coding Level of Care Code Procedure Only Diagnoses Lumbosacral spondylosis M47.817
[2024-08-27 11:05] VITALS: BP 118/72; PULSE 76; RESP 16; O2SAT 96
--- OUTSIDE RECORDS SUMMARY | 2024-08-27 11:36 | XMS_ITS | Encounter Summary ---
Author Organization [facility] Address [address] [place] [address] Care Team Providers Care Chief Clerk Shelter Name Role Phone Kd Arizmendi Primary Care Provider Encounter Details Date Type Department Care Team (Late st Contact Info) Description 08/14/2024 Telephone Orthopedic Surgery - [place] [address] [phone] Ken John DPM [address] [address] Social History Tobacco Use Types Packs/Day Years [...] Description 09/20/2024 10:30 AM EDT Hospital Encounter [facility] Main OR [address] [place] [phone] Ken John DPM [address] [address] 09/20/2024 10:30 AM EDT - 09/20/2024 12:30 PM EDT Surgery [facility] Main OR [address] [place] [phone] Ken John DPM [address] [address] REPAIR TENDON ACHILLES [[id number] (CPT??)] 10/03/2024 2:00 PM EDT Office Visit Orthopedic Surgery - [place] [address] [phone] Ken John DPM [address] [address] Scheduled Procedures Name Priority Associated Diagnoses Date/Ti me REPAIR TENDON ACHILLES Calcaneal spur of left foot Strain of left Achilles tendon, sequela 09/20/2024 10:30 AM EDT EXCISION BONE SPUR LOWER EXTREMITY Calcaneal spur of left foot Strain of left Achilles tendon, sequela 09/20/2024 10:30 AM EDT documented as of this encounter Visit Diagnoses Not on filedocumented in this encounter Care Teams Chief Clerk Shelter Relationship Specialty Start Date End Date Kd Arizmendi PA [address] [place] [phone] PCP - General Physician Project Geologist 06/19/24 documented as of this encounter
--- OUTSIDE RECORDS SUMMARY | 2024-08-27 11:36 | XMS_ITS | Data Portability ---
Author Organization [place] [facility] Address [address] [place] [phone] Care Team Providers Care Installation Supervisor Name Role Phone MIGUEL CASTILLO Primary Care Provider [phone] Assessment Encounter Date Assessment Date Assessment LastModified [...] several weeks or sooner for worsening symptoms [facility] Not available 07/09/2024 13:12:28 08/14/2024 08/14/2024 48yo [...] Appt 02/15 @ 11:30am 2023 024 ATHENAX [facility], [address], [place], [address], 11:33:14 Procedures None recorded. Surgeries rhinoplast y (SURG) 2023 024 [email or web address] Not available 10:14:[address], sinuses, w/o contrast 2023 024 [email or web address] 4 [facility], [address] [place] [address], [phone], 4 16:13:24 Medication Orders cephalexin 500 mg capsule 2024 025 [id number], [address] [facility], [place], [address], 5 09:12:09 Patient TargetsNo targets recorded. Patient [...] observ ation record ed. [email or web address] [facility] Of [address], [address], 01/09/2024 16:08:30 Result Notes None recorded. Problems Name Problem SNOMED Code Status Onset Date Resolution Date Notes Provider Name and Address Organization Details Recorded Time Nasal congestion 75193214 Active 2023 AP Gil MD [address] [place] [address], [phone], [place] - [facility] 4 15:21:15 Fractured nasal bones 909095710 Active 2023 AP Gil MD [address] [place] [address], [phone], [place] - [facility] 4 16:08:13 Nasal obstruction 665480507 Active 2023 JOANNE MCDANIEL MD [address] [place] [address], [phone], [facility] - [facility] 4 17:04:18 Deviated nasal septum 096054626 Active 2023 JOANNE MCDANIEL MD [address] [place], [place] [address], [place], [phone], [facility] - [facility] 4 17:04:21 Acquired deformity of nose 03487495 Active 2023 JOANNE MCDANIEL MD [address] [place] [address], [place], [phone], [facility] - [facility] 4 17:04:26 Tumor of inferior turbinate 105394534 Active 2023 JOANNE MCDANIEL MD [address] [place] [address], [place], [address], [facility] 4 17:04:35 Hypertrophy of nasal turbinates 71521442 Active 2023 JOANNE MCDANIEL MD [address] [place] [address], [place], [phone], [facility] - [facility] 4 17:04:41 Problem Notes None recorded. Procedures Surgical History Date Name Laterality Status Provider Name and Address Organization Details Recorded Time 06/05/19 25 rhinoseptoplasty completed JOANNE MCDANIEL MD [address] [place] [address], [phone], [facility] 06/05/2024 10:59:16 01/09/20 24 NasalEndoscopy_DP completed AP MORALEZ MD [address] [place] [address], [phone], [facility] 01/09/2024 15:29:03 Imaging Results Imaging Date Name Status LastModified by Organiz ation Details LastModified Time 01/09/2024 CT, sinuses, w/o contrast completed [email or web address] [facility] [address], [address], 01/09/2024 16:08:30 Procedure Notes None recorded. Medical Equipment None Reported. Allergies Allergen ID Allergen Name Allergen Category Reaction Reaction Severity Criticality Documentation Date Start Date Code Code System Note Provider Name and Address Organization Details Recorded Time 246113 hydroxyzi ne Not available Not available Not available Not available 08/14/2024 5553 RxNorm Nabila love [place] - [facility] 5 09:11:16 Medications Name Sig Start Date [...] [place] [facility] 07/09/2024 13:00:58 Date Recorded Body height Body weight Provider Name and Address Organization Details Last Updated DateTime 08/14/2024 182.88 cm 02752.47 g Nabila Olson [place] [facility] 08/14/2024 09:11:00 Date Recorded Body height Body mass index (BMI) Body weight Provider Name and Address Organization Details Last Updated DateTime 01/09/2024 182.88 cm 26.6 kg/m2 22539.1 g Parul Win [place] [facility] 01/09/2024 14:58:27 Date Recorded Body height Body mass index (BMI) Body weight Provider Name and Address Organization Details Last Updated DateTime 03/21/2024 182.88 cm 26.6 kg/m2 42964.1 g Parul Win [place] [facility] 03/21/2024 15:24:13 Date Recorded Body height Body mass index (BMI) Body weight Provider Name and Address Organization Details Last Updated DateTime 06/17/2024 182.88 cm 27.1 kg/m2 15868.47 g Cynthia Nguyễn [facility] 06/17/2024 15:42:26 Social History None recorded. Functional Status None recorded. Mental Status None recorded. Family History Nothing Reported. Medical History Condition Response Allergies/Hayfever N Heart Problems N Anxiety Y Tonsil Infections N Emphysema N Migraines N Thyroid Problems N Glaucoma N Depression N COPD N Developmental Delay N Nasal or Sinus Problems Y Anemia N Immune System Disorder N Anesthesia Complications N Heart Attack (LA) N Other Skin Condition N Diabetes N Rhinitis N Bleeding Disorder N Food Allergy N Arthritis Y Hearing Loss N Hyperlipidemia N Cancer N Stroke N Dementia N Nasal polyps N Asthma N Sleep Disorder Y GERD/Reflux Y High Cholesterol N Liver Disease N Headaches N Fibromyalgia N Hypertension Y Speech Delay N Kidney Disease N Past Encounters Encounter ID Performer Location Encounter Start Date Encounter Closed Date Diagnosis/Indication Diagnosis SNOMED-CT Code Diagnosis ICD10 Code Diagnosis Note [id number] AP MORALEZ MD [facility] [address] [address] 01/09/2024 14:36:41 01/09/2024 16:13:23 Nasal congestion 74879811 R09.81 Nasal endo was negative for polyps but notable for left septal deviation. I will order a max/face CT to evalute his anatomy given his prior history of facial trauma and possible fracture. History of facial injury 941842401 Z87.828 Nasal endo was negative for polyps but notable for left septal deviation. I will order a max/face CT to evaluate his anatomy given his prior history of facial trauma and possible fracture. Fractured nasal bones [address] max/face was obtained which showed [...] will refer to plastic surgery for this. [id number] JOANNE MCDANIEL MD [facility] [address] [address] 03/21/2024 15:14:33 03/21/2024 16:56:10 Nasal obstruction 959686777 J34.89 Deviated nasal septum 12 9647662 J34.2 Acquired d eformity of nose 63049645 M95.0 Fractured nasal bones 26 6678861 S02.2XXA Hypertroph y of nasal turbinates 91393606 J34.3 [id number] JOANNE MCDANIEL MD [facility] [address] [address] 06/17/2024 15:33:11 06/17/2024 16:12:10 Nasal obstruction 107465054 J34.89 Hypertroph y of nasal turbinates 27956541 J34.3 Deviated nasal septum 12 9627211 J34.2 [id number] JOANNE MCDANIEL MD [facility] [address] [address] 07/09/2024 12:58:35 07/09/2024 13:14:42 Deviated nasal septum 697355106 J34.2 Nasal obstruction 432819 000 J34.89 [id number] JOANNE MCDANIEL MD [facility] [address] [address] 08/14/2024 09:07:18 08/14/2024 09:24:16 Deviated nasal septum 612388467 J34.2 Nasal obstruction 632640 000 J34.89 Health Concerns Section Related Observation LastModified by Organization Detai ls LastModified Time None Recorded Concern Status LastModified by Organization Details LastModified Time None Recorded Advance Directives Directive None Recorded Payers Encounter Date Sequence Insurance Name Policy Number Policy Moreira Covered Member ID Moreira Member ID Guarantor Name 01/09/2024 1 [facility] [employer] NET [employer]AN (MEDICAID HMO) LINDEN Soliz [id number] Javier Soliz 03/21/2024 1 [facility] PL[facility] (MEDICAID HMO) LINDEN Soliz [id number] Javier Soliz 06/17/2024 1 [facility] PL[facility] (MEDICAID HMO) LINDEN Soliz [id number] Javier Soliz 07/09/2024 1 [facility] (MEDICAID HMO) LINDEN Soliz [id number] Javier Soliz 08/14/2024 1 [facility] (MEDICAID HMO) LINDEN Soliz [id number] Javier Soliz Notes Date Note Type Note [...] of smell is ok. AP MORALEZ MD [address] [place] [address], [phone] 01/09/2024 16:12:26 4 text/html 48yo male who [...] clear. JOANNE MCDANIEL MD [address],SHEREEN [facility], [place], [address], [facility] - [facility] 03/21/2024 17:10:07 text/html 48yo male s/p septorhinoplasty with inferior turbinate reduction on 06/05/24. He is doing well postoperatively - no concerns today. JOANNE MCDANIEL MD [address] [facility],[place] [facility], [place], [address], [facility] 06/23/2024 11:17:48 text/html 48yo male s/p septorhinoplasty w/ inferior turbinate reduction on 06/05/24. He has been vaping the last several weeksHe has noted some redness around the nose - this was at its worst last weekHe has been using bacitracin ointment and naproxen JOANNE MCDANIEL MD [address] [facility],[address], [address], [facility] 07/09/2024 13:12:41 text/html 48yo male s/p septorhinoplasty [...] 8/10 (preop 2/10) JOANNE MCDANIEL MD [address] [facility],[place] [address] [place] [address], [address], [facility] - [facility] 08/14/2024 09:26:38
--- OUTSIDE RECORDS SUMMARY | 2024-08-27 11:37 | XMS_ITS | Clinical Summary ---
Author Organization [address] [place] [address] [place] [phone] Phone Care Team Providers Care Ground Crewman Aircraft Support Name Role Phone Kd Arizmendi Primary Care [...] Care Team Description 08/14/2024 Telephone Orthopedic Surgery [facility] [address] [phone] Ken John DPM 08/01/2024 2:30 PM EDT Consult Orthopedic Surgery [facility] [address] [phone] Ken John DPM Pain in left foot [...] Description 09/20/2024 10:30 AM EDT Hospital Encounter [facility] Main OR [address] [place] [phone] Ken John DPM [address] [address] 09/20/2024 10:30 AM EDT - 09/20/2024 12:30 PM EDT Surgery [facility] Main OR [address] [place] [phone] Ken John DPM [address] [address] REPAIR TENDON ACHILLES [[id number] (CPT??)] 10/03/2024 2:00 PM EDT Office Visit Orthopedic Surgery - [place] [address] [phone] Ken John DPM [address] [address] Scheduled Procedures Name Priority Associated Diagnoses Date/Ti [...] patient's age to complete this topic Insurance [facility] [place] [address] Care Teams Ground Crewman Aircraft Support Relationship Specialty Start Date End Date Kd Arizmendi PA [address] [place] [phone] PCP - General Physician Clutch Assembler 06/19/24
== END 2024-08-27 11:06 | disposition home or self-care (01) ==
LOC: HO.PMCPRC 10:11
PROVIDERS: PCP Physician Assistant; Visit Provider Anesthesiology
DX: M47.817 Spondylosis without myelopathy or radiculopathy, lumbosacral region (principal)
CPT/HCPCS: 64493; 64494

== ENCOUNTER 2024-08-28 08:04 | Outpatient (AMB) | payer OTHER, SELFPAY ==
--- NOTE | 2024-08-28 08:12 | A.OFFVIS_ITS ---
Vital Signs 08/28/24 08:14 Height 6 ft Weight 186 lb BMI 25.2 BP 118/84 Blood Pressure Location Rt brachial Position Sitting Pulse 68 Pulse Source Pulse Oximeter Pulse Oximetry (%) 92 Oxygen Delivery Method Room Air Intake Visit Reasons: 6 mnth follow up Intake Note: ESTABLISHED PATIENT for GERD mgmt. Chief Complaint; Pt denies any GI sx or concerns at this time. Medications are still effective in tx of conditions. Children Librarian Required: No Accompanied by: Self / Same As Patient Allergies No Known Drug Allergies Allergy (Unknown, Verified 08/28/24 08:13) Unknown HPI HPI 6 mnth follow up: Details: LAST VISIT: GERD (gastroesophageal reflux disease) History of hepatitis C Postprandial abdominal pain in right upper quadrant Constipation Plan Patient will continue take pantoprazole in the morning and famotidine at bedtime. Currently his symptoms are suppressed. Avoid dietary triggers and late night snacking. Staying upright for minimum 3 hours after meals discussed with patient. Continue MiraLax on as needed basis. Follow-up in 6 months, sooner on as needed basis. He is agreeable to plan of care and verbalizes understanding of instructions. He was given the opportunity to ask questions and all questions answered. ? Thank you for allowing me to participate in his care Medications Refilled famotidine (Pepcid) 20 mg PO BEDTIME 90 days 90 tabs 3RF K21.9 pantoprazole take one tablet half an hour before breakfast 40 mg PO DAILY 90 tabs 3RF K21.9 TODAY'S VISIT Patient is here today for follow-up. Patient reports that he has been doing quite well. Takes pantoprazole in the morning and famotidine at bedtime, tries to avoid dietary triggers and feels well. Occasionally when eating something or forgetting to take pantoprazole he will have symptoms. Patient reports occasional constipation. Takes MiraLax as needed. Patient denies any melena, hematochezia, unintentional weight loss or ribbon like stools. Never had colonoscopy in the past. Family history of CRC, paternal uncle. Denies any issues with anesthesia in the past. No history of sleep apnea. Not on any anticoagulation medication. Patient denies dyspepsia, dysphagia odynophagia PFS Medical History Hepatitis C Methadone use Maxillary fracture Chronic infection of sinus Headaches, cluster GERD (gastroesophageal reflux disease) Surgical History History of rhinoplasty Family History Father Kidney failure Prostate cancer Mother DMII (diabetes mellitus, type 2) FH: HTN (hypertension) Family history of pulmonary embolism Social History Housing: House Alcohol intake: former Patient Tobacco Use Status: Current everyday Tobacco user Tobacco use type: Cigarette Cigarettes Per Day: 6 e-Cigarette/Vaping Use: Never Used Substance Use Type: Heroin and Opiates service: No Current occupational status: disabled Cognitive needs: No Hearing needs: No Vision needs: No Review of Systems Const Denies weight gain and Denies weight loss ENT Reports no additional complaints, Denies dysphagia and Denies odynophagia Card Reports no additional complaints Resp Reports no additional complaints GI Denies abdominal pain, Denies belching, Denies melena, Denies bloating, Denies change in bowel habits, Reports constipation (Occasional), Denies dysphagia, Denies excessive flatus, Denies dyspepsia, Denies heartburn, Denies diarrhea, Denies loose stools, Denies nausea, Denies odynophagia and Denies vomiting Reports no additional complaints Musc Reports no additional complaints Neuro Reports no additional complaints Psych Reports no additional complaints Endo Reports no additional complaints Physical Exam Vital Signs: Last Vital Signs Pulse 68 08/28/24 08:14 BP 118/84 08/28/24 08:14 Pulse Ox 92 08/28/24 08:14 Oxygen Delivery Method Room Air 08/28/24 08:14 BMI result Body Mass Index 25.2 Assessment & Plan Assessment & Plan (1) GERD (gastroesophageal reflux disease): Code(s): K21.9 - Gastro-esophageal reflux disease without esophagitis Category: Medical Qualifiers: Esophagitis presence: without esophagitis Qualified Code(s): K21.9 - Gastro-esophageal reflux disease without esophagitis (2) History of hepatitis C: Code(s): Z86.19 - Personal history of other infectious and parasitic diseases (3) Postprandial abdominal pain in right upper quadrant: Code(s): R10.11 - Right upper quadrant pain (4) Constipation: Code(s): K59.00 - Constipation, unspecified Qualifiers: Constipation type: slow transit constipation Qualified Code(s): K59.01 - Slow transit constipation (5) Screen for colon cancer: Code(s): Z12.11 - Encounter for screening for malignant neoplasm of colon Plan Continue pantoprazole and famotidine. Patient will be sent for upper endoscopy as he occasionally will still have epigastric pain if he forgets to take medication. Patient never had colonoscopy in the past. Family history of CRC, paternal unckle. No history of sleep apnea. Not on any anticoagulation medication. No issues with anesthesia in the past. Patient reports occasional constipation uses MiraLax as needed. Will give patient script for Dulcolax he can take it as needed. However patient was instructed to take 1 week before the procedure every evening to make sure that he has a good bowel prep. What to expect before during and after procedure discussed with patient. Stressed the importance of good bowel prep and clear liquid diet. I will see patient after the procedure, sooner on as needed basis. Patient is agreeable to this plan and verbalizes understanding of instructions. He was given the opportunity to ask questions and all questions answered Thank you for allowing me to participate in his care Medications: New bisacodyl (Dulcolax (bisacodyl)) 10 mg (2 x 5 mg) PO BEDTIME 180 tabs 4RF polyethylene glycol 3350 (Miralax) As directed by gastro[facility]ology department at [facility] 238 grams PO ONCE 238 grams 0RF Z12.11 - Encounter for screening for malignant ne oplasm of colon Coding Level of Care Code Est Pt Level 4 (95144) Complex EM visit Add On G2211 Diagnoses Gastroesophageal reflux disease without esophagitis K21.9 Esophagitis presence: without esophagitis History of hepatitis C Z86.19 Postprandial abdominal pain in right upper quadrant R10.11 Slow transit constipation K59.01 Constipation type: slow transit constipation Screen for colon cancer Z12.11 Time Spent (min) 35 Comment 25 minute spent with patient and additional 10 minutes spent reviewing his records
--- OUTSIDE RECORDS SUMMARY | 2024-08-28 08:12 | XMS_ITS | Encounter Summary ---
Author Organization [facility] Address [address] [place] [address] Care Team Providers Care Interpreter For The Deaf Name Role Phone Kd Arizmendi Primary Care Provider [phone] Encounter Details Date Type Department Care Team (Late st Contact Info) Description 08/14/2024 Telephone Orthopedic Surgery - [place] [address] [phone] Ken John DPM [address] [address] Social History Tobacco Use Types Packs/Day Years [...] Description 09/20/2024 10:30 AM EDT Hospital Encounter [facility] Main OR [address] [place] [phone] Ken John DPM [address] [address] 09/20/2024 10:30 AM EDT - 09/20/2024 12:30 PM EDT Surgery [facility] Main OR [address] [place] [phone] Ken John DPM [address] [address] REPAIR TENDON ACHILLES [[id number] (CPT??)] 10/03/2024 2:00 PM EDT Office Visit Orthopedic Surgery - [place] [address] [phone] Ken John DPM [address] [address] Scheduled Procedures Name Priority Associated Diagnoses Date/Ti me REPAIR TENDON ACHILLES Calcaneal spur of left foot Strain of left Achilles tendon, sequela 09/20/2024 10:30 AM EDT EXCISION BONE SPUR LOWER EXTREMITY Calcaneal spur of left foot Strain of left Achilles tendon, sequela 09/20/2024 10:30 AM EDT documented as of this encounter Visit Diagnoses Not on filedocumented in this encounter Care Teams Interpreter For The Deaf Relationship Specialty Start Date End Date Kd Arizmendi PA [address] [place] [phone] PCP - General Physician Pumpman 06/19/24 documented as of this encounter
--- OUTSIDE RECORDS SUMMARY | 2024-08-28 08:12 | XMS_ITS | Clinical Summary ---
Author Organization [address] [place] [address] [place] [phone] Phone Care Team Providers Care Supervisor Keymodule Assembly Name Role Phone Kd Arimzendi Primary Care Provider Allergies No known active [...] Care Team Description 08/14/2024 Telephone Orthopedic Surgery [facility] [address] [phone] Ken John DPM 08/01/2024 2:30 PM EDT Consult Orthopedic Surgery [facility] [address] [phone] Ken John DPM Pain in left foot [...] Description 09/20/2024 10:30 AM EDT Hospital Encounter [facility] Main OR [address] [place] [phone] Ken John DPM [address] [address] 09/20/2024 10:30 AM EDT - 09/20/2024 12:30 PM EDT Surgery [facility] Main OR [address] [place] [phone] Ken John DPM [address] [address] REPAIR TENDON ACHILLES [[id number] (CPT??)] 10/03/2024 2:00 PM EDT Office Visit Orthopedic Surgery - [place] [address] [phone] Ken John DPM [address] [address] Scheduled Procedures Name Priority Associated Diagnoses Date/Ti [...] patient's age to complete this topic Insurance [facility] Care Teams Supervisor Keymodule Assembly Relationship Specialty Start Date End Date Kd Arizmendi PA [address] [place] [phone] PCP - General Physician Marketing Intelligence Manager 06/19/24
[2024-08-28 08:14] VITALS: BP 118/84; PULSE 68; O2SAT 92; BMI 25.2
== END 2024-08-28 08:58 | disposition home or self-care (01) ==
LOC: HO.HGI 08:04
PROVIDERS: PCP Physician Assistant; Visit Provider Nurse Practitioner Family
DX: K21.9 Gastro-esophageal reflux disease without esophagitis (principal); Z86.19 Personal history of other infectious and parasitic diseases; K59.01 Slow transit constipation; Z12.11 Encounter for screening for malignant neoplasm of colon
CPT/HCPCS: 99214; G2211

== ENCOUNTER → 2024-08-28 08:04 | Outpatient (BNVA) | payer OTHER, SELFPAY | PROVIDERS: PCP Physician Assistant; Visit Provider Nurse Practitioner Family | DX: Z12.11 Encounter for screening for malignant neoplasm of colon (principal); K21.9 Gastro-esophageal reflux disease without esophagitis; K59.01 Slow transit constipation; R10.11 Right upper quadrant pain; Z86.19 Personal history of other infectious and parasitic diseases | CPT/HCPCS: 99212 ==

== ENCOUNTER 2024-09-03 10:56 | Outpatient (AMB) | payer OTHER, SELFPAY ==
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
[2024-09-03 11:00] VITALS: BP 138/75; PULSE 72; O2SAT 100; BMI 24.7
--- OUTSIDE RECORDS SUMMARY | 2024-09-03 12:39 | XMS_ITS | Encounter Summary ---
Author Organization [facility] Address [address] [place] [address] Care Team Providers Care Eye Surgeon Name Role Phone Kd Arizmendi Primary Care Provider Encounter Details Date Type Department Care Team (Late st Contact Info) Description 08/14/2024 Telephone Orthopedic Surgery - [place] [address] [phone] Ken John DPM [address] [address] Social History Tobacco Use Types Packs/Day Years [...] Description 09/20/2024 10:30 AM EDT Hospital Encounter [facility] Main OR [address] [place] [phone] Ken John DPM [address] [address] 09/20/2024 10:30 AM EDT - 09/20/2024 12:30 PM EDT Surgery [facility] Main OR [address] [place] [phone] Ken John DPM [address] [address] REPAIR TENDON ACHILLES [[id number] (CPT??)] 10/03/2024 2:00 PM EDT Office Visit Orthopedic Surgery - [place] [address] [phone] Ken John DPM [address] [address] Scheduled Procedures Name Priority Associated Diagnoses Date/Ti me REPAIR TENDON ACHILLES Calcaneal spur of left foot Strain of left Achilles tendon, sequela 09/20/2024 10:30 AM EDT EXCISION BONE SPUR LOWER EXTREMITY Calcaneal spur of left foot Strain of left Achilles tendon, sequela 09/20/2024 10:30 AM EDT documented as of this encounter Visit Diagnoses Not on filedocumented in this encounter Care Teams Eye Surgeon Relationship Specialty Start Date End Date Kd Arizmendi PA [address] [place] [phone] PCP - General Physician Winding Inspector And Tester 06/19/24 documented as of this encounter
--- OUTSIDE RECORDS SUMMARY | 2024-09-03 12:39 | XMS_ITS | Patient Health Record ---
Author Organization [facility] Address [address] [place], [place] [id number] Care Team Providers Care Building Drafter Name Role Phone [facility] Primary Care Provider Un available Derrell Samaniego Unavailable [phone] Filomena Bowser Unavailable [phone] Reason For Referral No Information Encounters Encounter Location Date Provider Diagnosis [facility] [address] [place] [phone] 10/23/2023 Filomena Bowser Plan Of Treatment No Information Insurance Providers Payer Name Payer Address Payer Phone Subscriber Number Group Number Insured Name Patient Relationship to Insured Coverage Start Date Coverage End Date [place] Standard [address] [place] [address] [phone] [id number] Javier Ni Self - patient is the insured 2
--- OUTSIDE RECORDS SUMMARY | 2024-09-03 12:39 | XMS_ITS | Clinical Summary ---
Author Organization [address] [place] [address] [place] [phone] Phone Care Team Providers Care Mail Order Sorter Name Role Phone Kd Arizmendi Primary Care [...] Care Team Description 08/14/[address] [facility] [address] [phone] Ken John DPM 08/01/2024 2:30 PM EDT Consult Orthopedic Surgery [facility] [address] [phone] Ken John DPM Pain in left foot [...] Description 09/20/2024 10:30 AM EDT Hospital Encounter [facility] Main OR [address] [place] [phone] Ken John DPM [address] [address] 09/20/2024 10:30 AM EDT - 09/20/2024 12:30 PM EDT Surgery [facility] Main OR [address] [place] [phone] Ken John DPM [address] [address] REPAIR TENDON ACHILLES [[id number] (CPT??)] 10/03/2024 2:00 PM EDT Office Visit Orthopedic Surgery - [place] [address] [phone] Ken John DPM [address] [address] Scheduled Procedures Name Priority Associated Diagnoses Date/Ti [...] patient's age to complete this topic Insurance [facility] [place] [id number] Care Teams Mail Order Sorter Relationship Specialty Start Date End Date Kd Arizmendi PA [address] [place] [phone] PCP - General Physician Pt Sitter 06/19/24
--- OUTSIDE RECORDS SUMMARY | 2024-09-03 12:39 | XMS_ITS | Data Portability ---
Author Organization [place] - [facility], Allergy Address [address] [place] [phone] Care Team Providers Care Metal Buffer Name Role Phone MIGUEL CASTILLO Primary Care [...] several weeks or sooner for worsening symptoms [email or web address] Not available 07/09/2024 13:12:28 08/14/2024 08/14/2024 48yo [...] Appt 02/15 @ 11:30am 2023 024 ATHENAX [facility], [address], [place], [address], 11:33:14 Procedures None recorded. Surgeries rhinoplast y (SURG) 2023 024 [email or web address] Not available 10:14:[address], sinuses, w/o contrast 2023 024 [email or web address] 4 [facility], [address] [place] [address], [phone], 4 16:13:24 Medication Orders cephalexin 500 mg capsule 2024 025 [facility][id number], [address] [facility], [place], [address], 5 09:12:09 Patient TargetsNo targets recorded. Patient [...] observ ation record ed. [email or web address] [facility] Of [address], [address], 01/09/2024 16:08:30 Result Notes None recorded. Problems Name Problem SNOMED Code Status Onset Date Resolution Date Notes Provider Name and Address Organization Details Recorded Time Nasal congestion 65292985 Active 2023 AP Gil MD [address] [place] [address], [phone], [place] - [facility] 4 15:21:15 Fractured nasal bones 698516317 Active 2023 AP Gil MD [address] [place] [address], [phone], [place] - [facility] 4 16:08:13 Nasal obstruction 465030288 Active 2023 JOANNE MCDANIEL MD [address] [place] [address], [phone], [facility] - [facility] [place] 4 17:04:18 Deviated nasal septum 807318891 Active 2023 JOANNE MCDANIEL MD [address] [place], [place] [address], [place], [address], [facility] - [facility] 4 17:04:21 Acquired deformity of nose 14163214 Active 2023 JOANNE MCDANIEL MD [address] [place] [address], [place], [phone], [facility] - [facility] 4 17:04:26 Tumor of inferior turbinate 825795622 Active 2023 JOANNE MCDANIEL MD [address] [place] [address], [place], [address], [facility] 4 17:04:35 Hypertrophy of nasal turbinates 74244995 Active 2023 JOANNE MCDANIEL MD [address] [place] [address], [place], [address], [facility] - [facility] 4 17:04:41 Problem Notes None recorded. Procedures Surgical History Date Name Laterality Status Provider Name and Address Organization Details Recorded Time 06/05/19 25 rhinoseptoplasty completed JOANNE MCDANIEL MD [address] [place] [address], [phone], [facility] 06/05/2024 10:59:16 01/09/20 24 NasalEndoscopy_DP completed AP MORALEZ MD [address] [place] [address], [phone], [facility] 01/09/2024 15:29:03 Imaging Results Imaging Date Name Status LastModified by Organiz ation Details LastModified Time 01/09/2024 CT, sinuses, w/o contrast completed [email or web address] [facility] [address], [address], 01/09/2024 16:08:30 Procedure Notes None recorded. Medical Equipment None Reported. Allergies Allergen ID Allergen Name Allergen Category Reaction Reaction Severity Criticality Documentation Date Start Date Code Code System Note Provider Name and Address Organization Details Recorded Time 372309 hydroxyzi ne Not available Not available Not available Not available 08/14/2024 5553 RxNorm Nabila love [place] - [facility] 5 09:11:16 Medications Name Sig Start Date [...] [place] - [facility] 07/09/2024 13:00:58 Date Recorded Body height Body weight Provider Name and Address Organization Details Last Updated DateTime 08/14/2024 182.88 cm 46696.47 g Nabila Olson [place] - [facility] [place] 08/14/2024 09:11:00 Date Recorded Body height Body mass index (BMI) Body weight Provider Name and Address Organization Details Last Updated DateTime 01/09/2024 182.88 cm 26.6 kg/m2 01720.1 g Parul Win [place] - [facility] 01/09/2024 14:58:27 Date Recorded Body height Body mass index (BMI) Body weight Provider Name and Address Organization Details Last Updated DateTime 03/21/2024 182.88 cm 26.6 kg/m2 87865.1 g Parul Win [place] [facility] 03/21/2024 15:24:13 Date Recorded Body height Body mass index (BMI) Body weight Provider Name and Address Organization Details Last Updated DateTime 06/17/2024 182.88 cm 27.1 kg/m2 16051.47 g Cynthia Nguyễn [facility] 06/17/2024 15:42:26 Social History None recorded. Functional Status None recorded. Mental Status None recorded. Family History Nothing Reported. Medical History Condition Response Allergies/Hayfever N Heart Problems N Anxiety Y Tonsil Infections N Emphysema N Migraines N Thyroid Problems N Developmental Delay N COPD N Depression N Glaucoma N Nasal or Sinus Problems Y Anemia N Immune System Disorder N Anesthesia Complications N Heart Attack (PR) N Other Skin Condition N Diabetes N [...] SNOMED-CT Code Diagnosis ICD10 Code Diagnosis Note [id number] AP MORALEZ MD [facility] [address] [address] 01/09/2024 14:36:41 01/09/2024 16:13:23 Nasal congestion 70713173 R09.81 Nasal endo was negative for polyps but notable for left septal deviation. I will order a max/face CT to evalute his anatomy given his prior history of facial trauma and possible fracture. History of facial injury 444012750 Z87.828 Nasal endo was negative for polyps but notable for left septal deviation. I will order a max/face CT to evaluate his anatomy given his prior history of facial trauma and possible fracture. Fractured nasal bones [address] max/face was obtained which showed [...] will refer to plastic surgery for this. [id number] JOANNE MCDANIEL MD [facility] [address] [address] 03/21/2024 15:14:33 03/21/2024 16:56:10 Nasal obstruction 776392391 J34.89 Deviated nasal septum 12 9877408 J34.2 Acquired d eformity of nose 63515915 M95.0 Fractured nasal bones 26 2557352 S02.2XXA Hypertroph y of nasal turbinates 63340115 J34.3 [id number] JOANNE MCDANIEL MD [facility] [address] [address] 06/17/2024 15:33:11 06/17/2024 16:12:10 Nasal obstruction 748179940 J34.89 Hypertroph y of nasal turbinates 39324457 J34.3 Deviated nasal septum 12 4466055 J34.2 [id number] JOANNE MCDANIEL MD [facility] [address] [address] 07/09/2024 12:58:35 07/09/2024 13:14:42 Deviated nasal septum 849011341 J34.2 Nasal obstruction 869550 000 J34.89 [id number] JOANNE MCDANIEL MD [facility] [address] [address] 08/14/2024 09:07:18 08/14/2024 09:24:16 Deviated nasal septum 000343902 J34.2 Nasal obstruction 408521 000 J34.89 Health Concerns Section Related Observation LastModified by Organization Detai ls LastModified Time None Recorded Concern Status LastModified by Organization Details LastModified Time None Recorded Advance Directives Directive None Recorded Payers Encounter Date Sequence Insurance Name Policy Number Policy Moreira Covered Member ID Moreira Member ID Guarantor Name 01/09/2024 1 [facility] [employer] [facility] (MEDICAID HMO) LINDEN Soliz [id number] Javier Soliz 03/21/2024 1 [facility] PLAN (MEDICAID HMO) LINDEN Soliz [id number] Javier Soliz 06/17/2024 1 [facility] PLAN (MEDICAID HMO) LINDEN Soliz [id number] Javier Soliz 07/09/2024 1 [facility] (MEDICAID HMO) LINDEN Soliz [id number] Javier Soilz 08/14/2024 1 [facility] (MEDICAID HMO) LINDEN Soliz [id number] Javier Soliz Notes Date Note Type Note [...] of smell is ok. AP MORALEZ MD [address] [place] [address], [id number] 01/09/2024 16:12:26 4 text/html 48yo male who [...] clear. JOANNE MCDANIEL MD [address],[place] [facility], [place], [address], [facility] - [facility] 03/21/2024 17:10:07 text/html 48yo male s/p septorhinoplasty with inferior turbinate reduction on 06/05/24. He is doing well postoperatively - no concerns today. JOANNE MCDANIEL MD [address] [facility] [place] [facility], [place], [address], [facility] 06/23/2024 11:17:48 text/html 48yo male s/p septorhinoplasty w/ inferior turbinate reduction on 06/05/24. He has been vaping the last several weeksHe has noted some redness around the nose - this was at its worst last weekHe has been using bacitracin ointment and naproxen JOANNE MCDANIEL MD [address] [facility] [place],[address], [address], [facility] 07/09/2024 13:12:41 text/html 48yo male s/p septorhinoplasty [...] 8/10 (preop 2/10) JOANNE MCDANIEL MD [address] [facility] [address],[place] [address] [place] [address], [phone], [facility] - [facility] 08/14/2024 09:26:38
== END 2024-09-03 11:09 | disposition home or self-care (01) ==
LOC: HO.PMC 10:56
PROVIDERS: PCP Physician Assistant; Visit Provider Nurse Practitioner Family
DX: M54.16 Radiculopathy, lumbar region (principal); M47.817 Spondylosis without myelopathy or radiculopathy, lumbosacral region; M51.362 Other intervertebral disc degeneration, lumbar region with discogenic back pain and lower extremity pain; M54.51 Vertebrogenic low back pain
CPT/HCPCS: 99214; G2211

== ENCOUNTER → 2024-09-03 10:56 | Outpatient (BNVA) | payer OTHER, SELFPAY | PROVIDERS: PCP Physician Assistant; Visit Provider Nurse Practitioner Family | DX: M54.16 Radiculopathy, lumbar region (principal); M47.817 Spondylosis without myelopathy or radiculopathy, lumbosacral region; M51.362 Other intervertebral disc degeneration, lumbar region with discogenic back pain and lower extremity pain | CPT/HCPCS: 99212 ==

== ENCOUNTER 2024-09-13 18:08 | Outpatient (REF) | payer OTHER, SELFPAY ==
--- NOTE | ~2024-09-13 | MR_ITS ---
EXAMINATION: MR LUMBAR SPINE WITHOUT CONTRAST CLINICAL INFORMATION: Radiculopathy, lumbar region.; Low back and right leg pain. COMPARISON: No prior MRI. Lumbar spine radiographs 06/21/2023. TECHNIQUE: Multiplanar multisequence MR imaging of the lumbar spine was done without IV contrast. Examination was performed on a 1.5 Janine Siemens magnet, utilizing standard sequences. FINDINGS: CORONAL ALIGNMENT: -There is a moderate right convex scoliosis, apex at L2. SAGITTAL ALIGNMENT: - There is mild straightening of the normal lordosis. -There are 2 mm stairstep type degenerative retrolisthesis of L2 on L3 and L3 on L4. -Alignment is otherwise anatomic. LUMBOSACRAL JUNCTION: -Normal. There are 5 lus-epf-mklagky lumbar-type vertebral bodies. VERTEBRAL BODIES/BONE MARROW: -Mild edematous type endplate changes at L2-3 oriented to the left. -Mild edematous endplate changes present at L5-S1 oriented to the right. -A few scattered Schmorl's nodes in the endplates, most notably in the left superior endplate of L4. -Mild edema within the L4 pedicles bilaterally, likely stress response. -No suspicious or abnormal infiltrating bone marrow signal DISCS: -Moderate diffuse loss of disc height and signal, most severe at L5-S1. SPINAL CANAL: -No abnormal developmental findings. CONUS MEDULLARIS: -Terminates at T12. Morphology and signal is normal. INTRADURAL NERVE ROOTS: - Normal appearance. No nerve root clumping or mass. Axial Disc Space Images: T12-L1: Mild facet degeneration bilaterally. Minimal left paracentral and lateral disc bulging without significant mass effect. No central canal or neural foraminal narrowing. L1-L2: There is a concentric diffuse disc bulge present with central annular fissuring. This indents upon the ventral thecal sac, and coupled with mild hypertrophic degenerative facet changes results in minimal central canal stenosis, and mild left subarticular recess stenosis. The neural foramina are patent. L2-L3: There is a concentric diffuse disc bulge, extending into the left greater than right foraminal zones. There are mild to moderate hypertrophic degenerative facet changes with mild posterior ligamentous thickening/infolding. There is mild central canal stenosis, mild left subarticular recess stenosis, and efyf-jm-bzjhlexw left neural foraminal stenosis. L3-L4: There is a concentric disc bulge present extending into both foraminal zones, moderate hypertrophic degenerative facet changes bilaterally, posterior ligamentous thickening/infolding, with the combination of findings resulting in mild central canal stenosis, mild to moderate bilateral subarticular recess stenosis without definite mass effect or contact upon the traversing L4 nerve roots. There is mild right and moderate to severe left neural foraminal encroachment. There is contact of the exiting left L3 nerve root without impingement. L4-L5: There is a shallow concentric disc bulge present with a superimposed right far lateral and foraminal protrusion of disc material. There are moderate right greater than left hypertrophic degenerative facet changes, with posterior ligamentous thickening/infolding. There is mild central canal narrowing, mild right greater than left subarticular recess narrowing, mild left and moderate to severe right neural foraminal stenosis. There may be mild impingement of the exiting right L4 root. L5-S1: There is a diffuse extrusion of disc material asymmetrically prominent to the right lateral recess and right neural foramen. There are mild to moderate hypertrophic degenerative facet changes bilaterally. There is mild central canal narrowing. There is moderate right subarticular recess narrowing with mild contact and deviation of the traversing right S1 nerve roots. No definite mass effect upon the left S1 roots. There is severe right neural foraminal stenosis with impingement of the exiting right L5 nerve root. The left neural foramen is minimally narrowed. IMAGED SI JOINTS: Mild degenerative arthrosis bilaterally. PARAVERTEBRAL AND INCLUDED EXTRASPINAL SOFT TISSUES: -Aorta is normal in caliber. No abnormality is evident. MR/MR lumbar spine wo con IMPRESSION: 1. There is a moderate right convex scoliosis, apex at L2. 2. There are mild edematous type endplate changes present at L2-3 and L5-S1. There is edema within the bilateral L4 pedicles, likely stress response. 3. There is moderate multilevel spondylosis as described in detail above. There is no moderate to high-grade central canal narrowing. 4. There is contact and mild mass effect upon the traversing right S1 root at L5-S1. There is severe right neural foraminal stenosis at this level. 5. There is moderate to severe right neural foraminal stenosis at L4-5. 6. See the body of the report for details. Electronically signed by: Rocky Valdez MD 09/16/2024 08:41 AM EDT RP
== END 2024-09-13 18:09 | disposition home or self-care (01) ==
LOC: HO.MRI 18:08
PROVIDERS: PCP Physician Assistant; Visit Provider Nurse Practitioner Family
DX: M47.817 Spondylosis without myelopathy or radiculopathy, lumbosacral region (principal); M51.362 Other intervertebral disc degeneration, lumbar region with discogenic back pain and lower extremity pain; M54.51 Vertebrogenic low back pain; M54.16 Radiculopathy, lumbar region
CPT/HCPCS: 72148

== ENCOUNTER → 2024-09-13 18:08 | Outpatient (BNV) | payer OTHER, SELFPAY | PROVIDERS: PCP Physician Assistant; Visit Provider Radiology Diagnostic Radiology | DX: M54.16 Radiculopathy, lumbar region (principal) | CPT/HCPCS: 72148 ==

== ENCOUNTER 2024-10-11 15:40 | Outpatient (AMB) | payer OTHER, SELFPAY ==
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
[2024-10-11 15:46] VITALS: BP 134/78; PULSE 61; O2SAT 99; BMI 25.2
== END 2024-10-11 16:08 | disposition home or self-care (01) ==
LOC: HO.PMC 15:40
PROVIDERS: PCP Physician Assistant; Visit Provider Nurse Practitioner Family
DX: M54.16 Radiculopathy, lumbar region (principal); G89.4 Chronic pain syndrome; M51.362 Other intervertebral disc degeneration, lumbar region with discogenic back pain and lower extremity pain; M48.062 Spinal stenosis, lumbar region with neurogenic claudication; M47.817 Spondylosis without myelopathy or radiculopathy, lumbosacral region; M79.672 Pain in left foot; G89.29 Other chronic pain; M54.51 Vertebrogenic low back pain
CPT/HCPCS: 99214; G2211

== ENCOUNTER → 2024-10-11 15:40 | Outpatient (BNVA) | payer OTHER, SELFPAY | PROVIDERS: PCP Physician Assistant; Visit Provider Nurse Practitioner Family | DX: M54.16 Radiculopathy, lumbar region (principal); G89.4 Chronic pain syndrome; M51.362 Other intervertebral disc degeneration, lumbar region with discogenic back pain and lower extremity pain; M47.817 Spondylosis without myelopathy or radiculopathy, lumbosacral region; M48.062 Spinal stenosis, lumbar region with neurogenic claudication; M79.672 Pain in left foot; M54.51 Vertebrogenic low back pain | CPT/HCPCS: 99212 ==

== ENCOUNTER 2024-12-13 09:06 | Outpatient (REF) | payer OTHER, SELFPAY ==
--- OUTSIDE RECORDS SUMMARY | 2024-12-13 09:21 | XMS_ITS | Patient Health Record ---
Author Organization [facility] Address [address], [place] [id number] Care Team Providers Care Secondary Set Up Man Name Role Phone [facility] Primary Care Provider Derrell Samaniego Unavailable [phone] Reason For Referral No Information Plan Of Treatment No Information Insurance Providers Payer Name Payer Address Payer Phone Subscriber Number Group Number Insured Name Patient Relationship to Insured Coverage Start Date Coverage End Date MD Medicaid Standard [address] [place] [address] [phone] [id number] Javier Ni Self - patient is the insured 2
--- OUTSIDE RECORDS SUMMARY | 2024-12-13 09:21 | XMS_ITS | Clinical Summary ---
Author Organization [address] [place] [address] [place] [phone] Phone Care Team Providers Care Natural Developer Name Role Phone Kd Arizmendi Primary [...] Encounters Date Type Department Care Team Description 09/12/2024 Telephone Orthopedic Surgery - [address] [place] [phone] Page Webber from Last 3 Months Social History Tobacco Use Types Packs/Day Years Used Date Smoking Tobacco: Never Assessed Sex and Gender Information Value Date Recorded Sex Assigned at Not on file Legal Sex Male 11:14 AM EST Gender Identity Not on file Sexual Orientation Not on file Plan of Treatment Health Maintenance Due Date Last Done Comments DTaP,Tdap,and Td Vaccines (1 - Tdap) 06/30/1994 Hepatitis B Vaccines (1 of 3 - 19+ 3-dose series) 06/30/1994 Cholesterol Screening (Lipid Panel) 03/29/2022 Colorectal Cancer Screening: Colonoscopy 03/29/2022 HIV Screening 03/29/2022 Hepatitis C Screening 03/29/2022 Social Influencers of Health Screening 03/29/2022 COVID-19 Vaccine (1 - 2023-2 5 season) 2023 Depression Screening 05/01/2024 Influenza Vaccine (#1) 2024 HIB Vaccines Aged Out No longer [...] 5 Years) and At-Risk Patients (6 to 49 Years) Aged Out No longer eligible b ased on patient's age to complete this topic RSV Immunization Patients Un nnamdi 20 months Aged Out No longer eligible b ased on patient's age to complete this topic Varicella Vaccines Aged Out No longer eligible based on patient's age to complete this topic Insurance [facility] Care Teams Natural Developer Relationship Specialty [place] [address] [place] [phone] PCP - General Physician Supervisor [employer]ring [employer] 06/19/24
[2024-12-13 09:41] LABS: Hematocrit 41.2 % (42.0-52.0); Hemoglobin 13.9 g/dl (14.0-18.0); Mean Corpuscular HGB Conc 33.7 g/dl (31.0-36.0); Mean Corpuscular Hemoglobin 30.5 pg (27.0-33.0); Mean Corpuscular Volume 90.4 fL (80.0-98.0); NRBC Abs Auto 0.000 X10*3/uL (0.0-0.012); NRBC Pct Auto 0.0 /100WBC (0.0-0.2); Platelet Count 174 X10*3/uL (160-400); Red Blood Count 4.56 X10*6/uL (4.60-5.80); White Blood Count 7.3 X10*3/uL (4.8-10.8)
[2024-12-13 10:16] LABS: Albumin Level 4.6 g/dL (3.5-5.0); Alkaline Phosphatase 84 U/L (39-117); Anion Gap 11 (12-20); Aspartate Amino Transferase 35 U/L (5-37); Blood Urea Nitrogen 17 mg/dL (9-16); Calcium 9.4 mg/dL (8.4-10.2); Carbon Dioxide 26 mmol/L (22-29); Chloride 107 mmol/L (96-108); Estimated Glomerular Filt Rate > 60; Potassium 4.7 mmol/L (3.3-5.1); Sodium 139 mmol/L (135-145); Total Protein 7.4 g/dL (6.5-8.0)
[2024-12-13 10:30] LABS: Alanine Aminotransferase 28 U/L (0-40)
== END 2024-12-13 09:07 | disposition home or self-care (01) ==
LOC: HO.LAB 09:06
PROVIDERS: PCP Physician Assistant; Visit Provider Physician Assistant
DX: Z12.5 Encounter for screening for malignant neoplasm of prostate (principal); I10 Essential (primary) hypertension
CPT/HCPCS: 36415; 80053; 82043; 82570; 84153; 85027

== ENCOUNTER 2025-03-04 11:10 | Outpatient (AMB) | payer OTHER, SELFPAY ==
--- NOTE | 2025-03-04 11:15 | MHC.PC.OV ---
Vital Signs 03/04/25 11:16 Height 6 ft Weight 190 lb 6 oz BMI 25.8 BP 122/62 Blood Pressure Location Lt brachial Position Sitting Pulse 64 Pulse Source Pulse Oximeter Temp 96.9 F Temp Source Temporal Artery Scan Pulse Oximetry (%) 97 Oxygen Delivery Method Room Air Intake Visit Reasons: annual physical Intake Note: Patient is here today for a physical. Chute Builder Required: No Services Account Manager: Not Required per policy Accompanied by: Self / Same As Patient Allergies No Known Drug Allergies Allergy (Unknown, Verified 03/04/25 11:41) Unknown Medication List - Last Reconciled 03/04/25 by Kd Arizmendi PA-C amlodipine 5 mg PO DAILY baclofen 20 mg PO BID 15 days bisacodyl (Dulcolax (bisacodyl)) 10 mg (2 x 5 mg) PO BEDTIME cetirizine (Zyrtec) 10 mg PO DAILY PRN 90 days famotidine (Pepcid) 20 mg PO BEDTIME 90 days fluticasone propionate 50 mcg/actuation 1 spray intranasal BID 30 days gabapentin 600 mg PO TID 90 days lidocaine 5% (Lidoderm) 2 patches topical ONCE PRN MDD remove after 12 hours meloxicam 15 mg PO DAILY PRN methadone 10 mg IM Q4H PRN naloxone 4 mg/actuation 1 spray intranasal DAILY nicotine (polacrilex) 2 mg buccal Q2H PRN 15 days pantoprazole 40 mg PO DAILY polyethylene glycol 3350 (Miralax) 17 grams PO DAILY polyethylene glycol 3350 (Miralax) 238 grams PO ONCE sertraline 50 mg PO DAILY Tobacco use date assessed: 03/04/25 Dental Screening Dental Screen Date: 06/03/24 HPI annual physical HPI Details Patient is a 49-year-old male here today for a routine annual physical. Patient has a past medical history significant for hypertension, opiate use disorder, generalized anxiety disorder , chronic lumbosacral pain, history of hepatitis C ? Liver cirrhosis Chronic right heel pain: has been having a chronic problematic heel spur he is followed by a foot and ankle specialist at [facility] in his anticipating surgery on his bone spur and Achilles tendon Opiate depedence: goes? to a methadone clinic in [facility] , ([facility]) continues to be sober from street opiates over the last 4 years. Currently on 110 mg of methadone. 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 .. Lumbar spine pain: Now followed by pain management and is considering a pain reduction modality. His gabapentin was increased to 600 mg Continues with gabapentin and baclofen with decent relief. Also going to a methadone clinic which offer him some pain relief. He has gotten x-ray was lower lumbar spine that did show low bone density. Does have osteoporosis in his lower lumbar spine. The patient underwent a pain management intervention involving a spinal injection, although this procedure has not significantly alleviated his pain. He currently uses gabapentin 600 t.i.d. though feels the effect on his pain relief is suboptimal, he is interested in increasing his gabapentin dose to 800 t.i.d.. .. Liver cirrhosis: Had hep C was treated by a fish farmer and cleared virus. He is followed by [place] [facility].. Most recent liver enzymes stable. He did have an ultrasound of his liver in 2021 that did show hepatocellular disease. Tobacco use disorder/vaporizer cigarette:? He does understand he needs to quit and will be working on that soon.? He has not been using his prescribed nicotine gum. Colorectal cancer screening: Seeing Gastroenterology, will ask colonoscopy screening Vaccines: Report he is UTD with Tdap. UTD with COVID. UTD with TDap, UTD with FLu vaccine Laboratory Tests 08/09/23 02/04/24 12/13/24 07:38 08:50 09:34 RBC 4.44 L Hgb 13.4 L 13.7 L 13.9 L Creatinine 0.77 0.76 PSA Screen 0.56 PFSH Medical History Hepatitis C Methadone use Maxillary fracture Chronic infection of sinus Headaches, cluster GERD (gastroesophageal reflux disease) Surgical History History of rhinoplasty Family History Father Kidney failure Prostate cancer Mother DMII (diabetes mellitus, type 2) FH: HTN (hypertension) Family history of pulmonary embolism Social History (Updated 03/04/25 @ 11:45 by Kd Arizmendi PA-C) Housing: House Alcohol intake: former Patient Tobacco Use Status: Former Tobacco user Tobacco use type: Smokeless Tobacco Cigarette Packs Per Day: 0.5 Cigarettes Per Day: 6 e-Cigarette/Vaping Use: Currently Using Second Hand Smoke Exposure: Yes Substance Use Type: Heroin and Opiates service: No Current occupational status: disabled 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 Cognitive needs: No Hearing needs: No Vision needs: No Questionnaire Thrive Questionnaire Date Thrive assessed: 06/03/24 I am a: Patient What is your living situation today?: I have a steady place to live Within the past 12 months, did the food you bought not last and you didn't have the money to get more?: Never true Within the past 12 months, did you worry whether your food would run out before you got money to buy more?: Never true Do you have trouble paying for medicines?: Yes Do you have trouble getting transportation to medical appointments?: No Do you have trouble paying your heating and electricity bill?: Yes Do you have trouble taking care of your child, family member or friend?: No Do you have trouble with day-to-day activities such as bathing, preparing meals, shopping, managing finances, etc.?: No Are you currently unemployed and looking for a job?: No Are you interested in more education?: No Currently or been in a relationship where the following occur: No concerns reported THRIVE Score: 1 LENORE-7 AMB Questionnaire LENORE-7 Date LENORE - 7 assessed: 06/03/24 Source: Developed by Drs. Braulio Cooper, Linda Canas, Niko Mina and colleagues, with an educational prashant from [employer]. Review of Systems Const Denies body aches, Denies chills, Denies excessive sweating, Denies fatigue, Denies fever(s) and Denies headache(s) Eyes Denies blurry vision ENT Denies dysphagia, Denies vertigo, Denies dizziness, Denies headache(s), Denies hearing loss and Denies tinnitus Card Denies chest pain, Denies chest pain with activity, Denies syncope, Denies irregular heart rhythm and Denies dyspnea Resp Denies chest congestion, Denies cough, Denies hemoptysis, Denies dyspnea and Denies wheezing GI Denies abdominal pain, Denies melena, Denies hematochezia, Denies coffee ground emesis, Denies dysphagia, Denies diarrhea, Denies nausea and Denies vomiting Denies difficulty urinating, Denies dysuria, Denies urinary frequency, Denies urinary hesitancy and Denies urinary urgency Musc Reports back pain, Denies arthralgias, Denies limited range of motion, Denies muscle cramps and Denies muscle weakness Skin/Breast Denies rash and Denies skin ulcer Neuro Denies Abnormal speech present, Denies confusion, Denies vertigo, Denies dizziness, Denies syncope, Denies headache(s), Denies memory loss and Denies seizure-like activity Psych Denies anxiety, Denies confusion, Denies depression, Denies memory loss, Denies panic attacks and Denies paranoia Endo Denies excessive sweating, Denies fatigue, Denies flushing, Denies polydipsia and Denies polyuria Aller/Immun Denies wheezing Physical exam (Primary Care) Vital Signs: Last Vital Signs Temp 96.9 F 03/04/25 11:16 Pulse 64 03/04/25 11:16 BP 122/62 03/04/25 11:16 Pulse Ox 97 03/04/25 11:16 Oxygen Delivery Method Room Air 03/04/25 11:16 BMI result Body Mass Index 25.8 Tobacco/Smoking Status: Tobacco use Status Tobacco use date assessed 03/04/25 03/04/25 11:16 Patient Tobacco Use Status Former Tobacco user 03/04/25 11:26 Tobacco use type Cigarette 03/04/25 11:25 e-Cigarette/Vaping Use Currently Using 03/04/25 11:26 Are you ready to quit: No Tobacco cessation counseling provided: Yes Items discussed: Nicotine replacement Relapse Prevention: discussed the importance of a supportive environment, discussed negative mood or depression after quitting, weight gain after smoking is common and discussed dietary, exercise and/or lifestyle changes Number of minutes spent counselin CPT code: 39170 - 4-10 Minutes Thrive Assessment: Date of Thrive Assessment Date Thrive assessed 06/03/24 03/04/25 11:16 Currently or been in a relationship where the following occur: No concerns reported Const General: cooperative, comfortable, no acute distress, alert and awake; No confusion Orientation/consciousness: oriented to person, oriented to place, patient oriented x3 and No confusion HENMT Head: Yes normocephalic Ears: external ears normal and TM's normal bilaterally Face and sinus: No sinus tenderness Mouth: Normal oral and palatal mucosa present and tongue normal Teeth and gingiva: dentition normal and gingiva normal Throat: Yes posterior oropharynx normal, Yes tonsils normal and Yes uvula midline Eyes Conjunctivae: conjunctivae normal Sclerae: sclerae normal Pupils: Equal, round and reactive pupils present EOM: EOMs intact bilaterally Direct Ophthalmoscopy: No no photophobia Neck Neck: Yes no lymphadenopathy, No tender and Yes no JVD Thyroid: Thyroid normal Carotids: no bruits Chest Chest palpation & inspection: no tenderness Resp Effort & Inspection: normal respiratory effort, no audible wheezes, not labored and no stridor Auscultation: no crackles, no rales, no rhonchi and no wheezes Cardio Jugular venous distension: no JVD Rate: regular rate, not bradycardic and not tachycardic Rhythm: regular rhythm Bruits: no carotid bruits Peripheral pulses: Peripheral pulses 2+ throughout GI Inspection: Yes normal to inspection, No abdominal wall ecchymosis and No visible herniation Palpation (GI): Soft to palpation, nontender, no guarding, not rigid and No hepatosplenomegaly present Auscultation: normoactive bowel sounds General: Yes no CVA tenderness Back/Spine/Pelvis Back: no CVA tenderness and No back tenderness Cervical Spine: cervical ROM normal Thoracic/Lumbar Spine: thoracic and lumbar spine normal to inspection, straight leg raise negative bilaterally, No thoraco-lumbar ROM limited and No lumbar spinal tenderness Skin Lesions: no lesions Rashes: no rashes Wounds: no wounds Neuro General: oriented to person, oriented to place, patient oriented x3, CN's II-XI intact bilaterally and No confusion Cranial nerves: Yes Equal, round and reactive pupils present and Yes Normal accommodation reflex present Cognition (Neuro): normal cognition Speech: No Abnormal speech present Gait exam (Neuro): Normal gait present Motor exam (neuro): 5/5 motor strength present throughout Extrem Right upper extremity: full ROM; no cyanosis Left upper extremity: full ROM; no cyanosis Right lower extremity: no edema Left lower extremity: no edema Psych Appearance: grossly normal Mental Status: mental status grossly normal Affect: normal affect Attitude: cooperative Thought process: Normal thought process present Coding Level of Care Code Est Pt Prev Care 40-64y(26125) Diagnoses Annual physical exam Z00.00 Uncomplicated opioid dependence F11.20 Substance use status: uncomplicated LENORE (generalized anxiety disorder) F41.1 Lumbar degenerative disc disease M51.36 Bone spur of posterior portion of left calcaneus M77.32 Laterality: left Other tobacco product nicotine dependence, uncomplicated F17.290 Nicotine product type: other Substance use status: uncomplicated Primary hypertension I10 Hypertension type: primary hypertension Other cirrhosis of liver K74.69 Hepatic cirrhosis type: other cirrhosis Additional Codes Vital Signs *Quality* - CPT code: 97664 - 4-10 Minutes ([id number]) Assessment & Plan Assessment & Plan (1) Annual physical exam: Code(s): Z00.00 - Encounter for general adult medical examination without abnormal findings Category: Medical Plan: As per HPI (2) Opiate dependence: Code(s): F11.20 - Opioid dependence, uncomplicated Category: Medical Qualifiers: Substance use status: uncomplicated Qualified Code(s): F11.20 - Opioid dependence, uncomplicated Plan: Continues to go to a methadone clinic. He has been staying away from any illicit street opiates. (3) LENORE (generalized anxiety disorder): Code(s): F41.1 - Generalized anxiety disorder Category: Medical Plan: He continues on sertraline 50 mg with good relief. He does smoke vaporized cigarettes due to his stress and anxiety as well. (4) Lumbar degenerative disc disease: Code(s): M51.36 - Other intervertebral disc degeneration, lumbar region Category: Medical Plan: As per HPI Patient has followed by pain management clinic here in [place] in his received injections which only offered minimal relief. He is interested in increasing his gabapentin dose to 800 mg t.i.d. for better pain control (5) Retrocalcaneal bone spur: Code(s): M77.30 - Calcaneal spur, unspecified foot Category: Medical Qualifiers: Laterality: left Qualified Code(s): M77.32 - Calcaneal spur, left foot Plan: Has chronic foot heel pain over the last several years. He is followed by a tier lift operator who recommend surgery for his right heel and Achilles tendon. (6) Nicotine dependence: Code(s): F17.200 - Nicotine dependence, unspecified, uncomplicated Category: Medical Qualifiers: Nicotine product type: other Substance use status: uncomplicated Qualified Code(s): F17.290 - Nicotine dependence, other tobacco product, uncomplicated Plan: We continues to use vaporizer cigarettes and does understand he needs to quit. He has not been using nicotine gum.r (7) HTN (hypertension): Code(s): I10 - Essential (primary) hypertension Category: Medical Qualifiers: Hypertension type: primary hypertension Qualified Code(s): I10 - Essential (primary) hypertension Plan: Patient's blood pressure acceptable today in office. Will continues current dose of amlodipine. Goal blood pressure to remain below 140/90 (8) Liver cirrhosis: Code(s): K74.60 - Unspecified cirrhosis of liver Category: Medical Qualifiers: Hepatic cirrhosis type: other cirrhosis Qualified Code(s): K74.69 - Other cirrhosis of liver Plan: Patient's most recent liver enzymes stable. Continues to follow gastroenterology Orders: Orders Microalbumin, Random (w Creat) Today I10 - Essential (primary) hypertension Complete Blood Count no Diff Today I10 - Essential (primary) hypertension Comprehensive [place]. Panel Fast Today I10 - Essential (primary) hypertension Prostate Specific Antigen Scr Today I10 - Essential (primary) hypertension, Z12.5 - Encounter for screening for malignant neoplasm of prostate Medications: New gabapentin 800 mg PO TID 270 tabs 1RF 90 days M48.062 - Spinal stenosis, lumbar region with neurogenic claudication Discontinued gabapentin Discontinued Reason: Doctor's Order 600 mg PO TID 90 days 270 tabs 1RF pain M47.817 - Spondylosis without myelopathy or radiculopathy, lumbosacral region, M53.3 - Sacrococcygeal disorders, not elsewhere classified, M54.16 - Radiculopathy, lumbar region
[2025-03-04 11:16] VITALS: BP 122/62; PULSE 64; TEMP 36.1; O2SAT 97; BMI 25.8
--- OUTSIDE RECORDS SUMMARY | 2025-03-04 13:40 | XMS_ITS | Data Portability ---
Author Organization [place] - [facility], Allergy Address [address] [place] [phone] Care Team Providers Care Strategic Buyer Name Role Phone MIGUEL CASTILLO Primary Care [...] several weeks or sooner for worsening symptoms [place] Not available 07/09/2024 13:12:28 08/14/2024 08/14/2024 48yo [...] months for re-evaluation Not available 08/14/2024 09:26:25 01/30/2025 01/30/2025 48yo male s/p septorhinoplasty w/ inferior turbinate reduction on 06/05/24. He has since stopped vaping and smoking. His nose is healing very well - his breathing is great, 8-10/10 on both sides. This is a huge success if he continues to heal well. He is happy with the results. Follow-up in 6 months for re-evaluation He is also having symptoms of sleep apnea- plan for home sleep study to evaluate this [place] Not available 01/30/2025 09:17:22 Plan of Treatment Reminders Order Date Submit Date Provider Last Modified By Organization Details Last Modified Time Details Appointments Establish ed 15 2025 09:15A M JOANNE MCDANIEL MD Not available Not available Not available Lab None recorded. Referral None recorded. Procedures None recorded. Surgeries rhinoplas ty (SURG) 2023 024 delia Not available 03/22/2024 10:14:09 Imaging home sleep study 2024 025 Sleep [facility] Services, [facility] [place], [address], 02/10/2025 11:39:31 Medication Orders cephalexi n 500 mg capsule 2024 025 [facility]/Pharmacy #[id number], [address] [facility], [place], [address], 08/14/2024 09:12:09 Patient TargetsNo targets recorded. Patient InstructionsNo instructions recorded. Reason for Referral None Reported. Problems Name Problem SNOMED Code Status Onset Date Resolution Date Notes Provider Name and Address Organization Details Recorded Time Nasal congestion 64144704 Active 2023 AP Gil MD [address] [place] [address], [place], [address], [facility] - [facility] 4 15:21:15 Fractured nasal bones 160270654 Active 2023 AP Gil MD [address] [place] [address], [place], [address], [facility] - [facility] 4 16:08:13 Nasal obstruction 579332295 Active 2023 JOANNE MCDANIEL MD [address] [place] [address], [place], [address], [facility] - [facility] 5 09:17:27 Deviated nasal septum 024748437 Active 2023 JOANNE MCDANIEL MD [address] [place] [address], [facility], [place], [address], [facility] - [facility] 5 09:17:25 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 Active 2023 JOANNE MCDANIEL MD [address] [place] [address] [facility], [facility] [place], [address], [facility] - [facility] 4 17:04:26 Neoplasm of inferior nasal turbinate 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 2023 JOANNE MCDANIEL MD [address] [address], [place], [address], [facility] - [facility] 4 17:04:35 Hypertrophy of nasal turbinates 75447081 Active 2023 JOANNE MCDANIEL MD [address] [address], [place], [address], [facility] 4 17:04:41 Finding related to sleep 683062873 Active 2024 JOANNE MCDANIEL MD [address] [place] [address], [facility], [address], [facility] 5 08:58:41 Disorder of respiratory system suspected 337370844 Active 2024 JOANNE MCDANIEL MD [address] [address], [facility] [place], [address], [facility] 5 08:58:45 Problem Notes None recorded. Procedures Surgical History Date Name Laterality Status Provider Name and Address Organization Details Recorded Time 06/05/19 25 rhinoseptoplasty completed JOANNE MCDANIEL MD [address] [place] [address], [phone], [facility] 06/05/2024 10:59:16 01/09/20 24 NasalEndoscopy_DP completed AP MORALEZ MD [address] [place] [address],[address], [address], [facility] 01/09/2024 15:29:03 Imaging Results None recorded. Procedure Notes None recorded. Medical Equipment None Reported. Allergies Allergen ID Allergen Name Allergen Category Reaction Reaction Severity Criticality Documentation Date Start Date Code Code System Note Provider Name and Address Organization Details Recorded Time 122613 hydroxyzi ne Not available Not available Not available Not available 08/14/2024 5553 RxNorm Nabila love [place] - [facility] 09:11:16 Medications Name Sig Start Date Stop Date Status Note LastModified by Organization Details LastModified Time amoxicillin 500 mg capsule 08/14 completed Not Available Not Available Not Available acetaminoph en 325 mg tablet TAKE 2 TABLETS 4 TIMES A DAY BY ORAL ROUTE FOR 7 DAYS. 01/30 completed Not Available Not Available Not Available gabapentin 600 mg tablet TAKE 1 TABLET BY MOUTH 3 TIMES A DAY FOR PAIN active Not Available Not Available No t Available cetirizine 10 mg tablet TAKE 1 TABLET BY MOUTH EVERY DAY NEEDED FOR ALLERGY active Not Available Not Available No t Available ibuprofen 800 mg tablet TAKE 1 TABLET BY MOUTH FOUR TIMES A DAY FOR 7 DAYS 08/14 completed Not Available Not Available Not Available nicotine (polacrilex ) 2 mg gum CHEW 1 PIECE BUCCALLY EVERY 2 HOURS NEEDED FOR NICOTINE CRAVINGS FOR 15 DAYS active Not Available Not Available No t Available meloxicam 15 mg tablet TAKE 1 TABLET ORALLY DAILY NEEDED FOR PAIN WITH FOOD AND WATER. AVOID OTHER NSAIDS, NAPROXEN active Not Available Not Available No t Available Medrol (Danyel) 4 mg tablets in [...] Available Not Available amlodipine 5 mg tablet TAKE 1 TABLET BY MOUTH EVERY DAY active Not Available Not Available No t Available baclofen 20 mg tablet TAKE 1 TABLET ORALLY 2 TIMES A DAY FOR 15 DAYS active Not Available Not Available No t Available famotidine 20 mg tablet TAKE 1 TABLET BY MOUTH EVERYDAY AT BEDTIME active Not Available Not Available No t Available nicotine (polacrilex ) 4 mg gum 01/30 completed Not Available Not Available Not Available cephalexin 500 mg capsule TAKE 1 CAPSULE BY MOUTH TWICE A DAY FOR 10 DAYS 08/14 completed Not Available Not Available Not Available pantoprazol e 40 mg tablet,grisel yed release TAKE 1 TABLET BY MOUTH HALF AN HOUR BEFORE BREAKFAST active Not Available Not Available No t Available lidocaine 5 % topical patch APPLY 2 PATCHES TOPICALLY ONCE NEEDED FOR PAIN 12 HOURS ON AND 12 HOURS OFF MOST PAINFUL AREA active Not Available Not Available No t Available nicotine 21 mg/24 hr daily transdermal patch 06/17 completed Not Available Not Available Not Available ibuprofen 600 mg tablet 08/14 completed Not Available Not Available Not Available fluticasone propionate 50 mcg/actuati on nasal spray,suspe nsion SPRAY 1 SPRAY INTO EACH NOSTRIL TWICE A DAY active Not Available Not Available No t Available sertraline 50 mg tablet TAKE 1 TABLET BY MOUTH EVERY DAY active Not Available Not Available No t Available ipratropium bromide 21 mcg (0.03 %) nasal spray 07/05 completed Not Available Not Available Not Available naproxen 500 mg tablet TAKE 1 TABLET BY MOUTH TWICE A DAY NEEDED FOR PAIN FOR 15 DAYS active Not Available Not Available No t Available oxycodone 5 mg tablet Take 1 tablet every 4 hours by oral route. 08/14 completed Not Available Not Available Not Available Laxative (bisacodyl) 5 mg tablet,grisel yed release TAKE 2 TABLETS BY MOUTH AT BEDTIME 01/30 completed Not Available Not Available Not Available Saline Nasal 0.65 % spray aerosol TAKE 1 SPRAY 4 TIMES A DAY BY NASAL ROUTE FOR 7 DAYS. active Not Available Not Available No t Available Gavilax 17 gram/dose oral powder MIX AND TAKE ONCE DIRECTED BY [facility]OLOGY DEPARTMEN T AT [facility] 01/30 completed Not Available Not Available Not Available naloxone 4 mg/actuatio n nasal spray 08/14 completed Not Available Not Available Not Available Tylenol 325 mg capsule Take 2 capsules 4 times a day by oral route for 7 days. 08/14 completed Not Available Not Available Not Available Vitals Date Recorded Body height Body mass index (BMI) Body weight Provider Name and Address Organization Details Last Updated DateTime 06/17/2024 182.88 cm 27.1 kg/m2 82484.47 g Cynthia Nguyễn [place] - [facility] 06/17/2024 15:42:26 Date Recorded Body height Provider Name an d Address Organization Details Last Updated DateTime 07/09/2024 182.88 cm GINA BOOKER [place] [facility] 07/09/2024 13:00:58 Date Recorded Body height Body weight Provider Name and Address Organization Details Last Updated DateTime 08/14/2024 182.88 cm 28017.47 g Nabila Olson [place] [facility] 08/14/2024 09:11:00 Date Recorded Body height Body mass index (BMI) Body weight Provider Name and Address Organization Details Last Updated DateTime 03/21/2024 182.88 cm 26.6 kg/m2 80224.1 g Parul Win [place] [facility] 03/21/2024 15:24:13 Social History Question Answer Notes LastModified by Organizat ion Details LastModified Time Tobacco Smoking Status Current Every Day Smoker Nabila love [place] [facility] 08/14/2024 09:15:53 What Type Of Site Physician Do You Use? None [email or web address] Information not available 01/30/2025 Do You Have Any Pets? No [email or web address] Information not available 01/30/2025 Are You Passively Exposed To Smoke? Yes [email or web address] Information not available 01/30/2025 Are There Any Smokers In Your House? Yes [email or web address] Information not available 01/30/2025 Sex: Unknown Functional Status Question Answer Note LastModified by Organization Details LastModified Time What type of noise exposure are you exposed to? noExposureToExcessiveNoise [email or web address] Infor mation not available 01/30/2025 Mental Status None recorded. Family History Relationship Description Onset Age of this Age Resolved Age Notes LastModified by Organization Details LastModified Time Mother Blood coagulation disorder 62 [email or web address] Not available 06/2024 08:31:54 Father Diabetes mellitus 30 74 [email or web address] Not available 06/2024 08:31:54 Medical History Condition Response Allergies/Hayfever N Heart Problems N Anxiety Y Tonsil Infections N Emphysema N Migraines N Thyroid Problems N COPD N Depression N Developmental Delay N Glaucoma N Nasal or Sinus Problems Y Anemia N Immune System Disorder N Anesthesia Complications N Heart Attack ([place]) N Other Skin Condition N Diabetes N [...] Diagnosis SNOMED-CT Code Diagnosis ICD10 Code Diagnosis IMO Codes Diagnosis Note [id number] AP MORALEZ MD [facility] [address] [address] 01/09/2024 14:36:41 01/09/2024 16:13:23 Nasal congestion 01855974 R09.81 Nasal endo was negative for polyps but notable for left septal deviation. I will order a max/face CT to evalute his anatomy given his prior history of facial trauma and possible fracture. History of facial injury 671701260 Z87.828 Nasal endo was negative for polyps but notable for left septal deviation. I will order a max/face CT to evaluate his anatomy given his prior history of facial trauma and possible fracture. Fractured nasal bones [address] max/face was obtained which showed [...] will refer to plastic surgery for this. [id number] JOANNE MCDANIEL MD [facility] [address] [address] 03/21/2024 15:14:33 03/21/2024 16:56:10 Nasal obstruction 845570090 J34.89 Deviated nasal septum 12 3393901 J34.2 Acquired d eformity of nose 39812859 M95.0 Fractured nasal bones 26 9551333 S02.2XXA Hypertroph y of nasal turbinates 84413378 J34.3 [id number] JOANNE MCDANIEL MD [facility] [address] [address] 06/17/2024 15:33:11 06/17/2024 16:12:10 Nasal obstruction 856838897 J34.89 Hypertroph y of nasal turbinates 14656583 J34.3 Deviated nasal septum 12 5960072 J34.2 [id number] JOANNE MCDANIEL MD [facility] [address] [place] [address] 07/09/2024 12:58:35 07/09/2024 13:14:42 Deviated nasal septum 795048156 J34.2 Nasal obstruction 607382 000 J34.89 [id number] JOANNE MCDANIEL MD [facility] [address] [address] 08/14/2024 09:07:18 08/14/2024 09:24:16 Deviated nasal septum 522384927 J34.2 Nasal obstruction 930482 000 J34.89 [id number] JOANNE MCDANIEL MD [facility] [address] [address] 01/30/2025 08:24:39 01/30/2025 09:05:02 Finding related to sleep 232702717 G47.30 081066 Disorder o f respiratory system suspected 503930773 R29.818 41026560 Deviated nasal septum 12 9713317 J34.2 43596 Nasal obstruction 679983 000 J34.89 11221 Health Concerns Section Related Observation LastModified by Organization Detai ls LastModified Time None Recorded Concern Status LastModified by Organization Details LastModified Time None Recorded Advance Directives Directive None Recorded Payers Insurance Date Sequence Insurance Name Policy Number Policy Moreira Covered Member ID Moreira Member ID Guarantor Name 01/30/2025 1 [facility] NET PLAN (MEDICAID HMO) LINDEN Soliz [id number] Javier Soliz Notes Date Note Type Note Provider Name and Address Organization Details Recorded Time 4 text/html 48yo male who presents for [...] each side is scored as follows:Right: 5/10Left: 2ssociated symptoms: nasal obstruction, nasal congestionMedications trialed: [...] were otherwise clear. JOANNE MCDANIEL MD [address] [facility],[address], [address], [facility] - [facility] 03/21/2024 17:10:07 5 text/html ROS as noted in the [facility] 48yo male s/p septorhinoplasty with inferior turbinate reduction on 06/05/24. He is doing well postoperatively - no concerns today. JOANNE MCDANIEL MD [address] [facility],[address] [address], [place], [address], [facility] - [facility] 06/23/2024 11:17:48 5 text/html ROS as noted in the [facility] 48yo male s/p septorhinoplasty w/ inferior turbinate reduction on 06/05/24. He has been vaping the last several weeksHe has noted some redness around the nose - this was at its worst last weekHe has been using bacitracin ointment and naproxen JOANNE MCDANIEL MD [address] [facility],[address], [address], [facility] 07/09/2024 13:12:41 5 text/html ROS as noted in the [facility] 48yo male s/p septorhinoplasty w/ inferior turbinate [...] 5/10)Left: 8/10 (preop 2/10) JOANNE MCDANIEL MD [address] [place] [address],[address], [address], [facility] - [facility] 08/14/2024 09:26:38 text/html 48yo male s/p septorhinoplasty w/ inferior turbinate reduction on 06/05/24.At his prior visit - he had some erythema/edema at the tip and was vaping.He has since stopped this and finished a course of keflex.Overall he is doing great. He is taking claritin and flonase for his fall allergiesOn a scale of 1 to 10, with 1 being the worst and 10 being the best, nasal breathing on each side is scored as follows:Right: 10/10 (Preop 5/10)Left: 8/10 (preop 2/10) He also reports sleep apnea symptomsOnly sleeping 4 hours nightlyWakes upwith obstructive symptoms JOANNE MCDANIEL MD [address] [place] [address],[address], [address], [facility] 01/30/2025 09:22:06
== END 2025-03-04 11:55 | disposition home or self-care (01) ==
LOC: HO.HMCH 11:10
PROVIDERS: PCP Physician Assistant; Visit Provider Physician Assistant
DX: Z00.00 Encounter for general adult medical examination without abnormal findings (principal); F11.20 Opioid dependence, uncomplicated; F41.1 Generalized anxiety disorder; M51.369 Other intervertebral disc degeneration, lumbar region without mention of lumbar back pain or lower extremity pain; M77.32 Calcaneal spur, left foot; F17.290 Nicotine dependence, other tobacco product, uncomplicated; I10 Essential (primary) hypertension; K74.69 Other cirrhosis of liver

== ENCOUNTER → 2025-03-04 11:10 | Outpatient (BNVA) | payer OTHER, SELFPAY | PROVIDERS: PCP Physician Assistant; Visit Provider Physician Assistant | DX: Z00.00 Encounter for general adult medical examination without abnormal findings (principal); I10 Essential (primary) hypertension; F41.1 Generalized anxiety disorder; M77.31 Calcaneal spur, right foot; M51.360 Other intervertebral disc degeneration, lumbar region with discogenic back pain only; M77.32 Calcaneal spur, left foot; K74.69 Other cirrhosis of liver; F11.20 Opioid dependence, uncomplicated; F17.290 Nicotine dependence, other tobacco product, uncomplicated | CPT/HCPCS: 99396 ==